=== PATIENT | female | born 1950 | race Caucasian/White ===

== ENCOUNTER → 2022-04-21 11:19 | Outpatient (POV) | payer MEDICARE, BC, SELFPAY ==
[2022-04-21 11:43] VITALS: BP 158/68; PULSE 76; RESP 18; TEMP 36.7; O2SAT 96; BMI 25.6
--- NOTE | 2022-04-21 13:30 | EXP.PAIN.OV ---
HPI Data of Consult Patient: new to practice Consult date: 04/21/22 Requesting Physician: Rosa Elena Jenkins APRN Primary Care Provider: Chris Valdivia APRN Consult Narrative Reason for consult: Low back pain, bilateral leg pains, history of sciatica History of present illness: Ms. Shook is a 72 year old female who presents today as a new patient. She is a referral from Chris Valdivia's office. Today she rates her pain a 4 out of 10. She states the pain is in her low back that radiates into her bilateral hips and down her legs. Patient describes her low back pain as a constant pain that is worse with increased activity. She states her legs are a dull achy pain that are worse with prolonged sitting. Patient states about 8 weeks ago she had a significant fall and has had issues with low back pain since. Patient does state that she has a history of SI related issues as well as multiple bilateral knee surgeries. Patient states following this injury they did do imaging around 03/26/2022 that did show a compression fracture. She was given a injection with prednisone as well as a 7-day dose steroid pack. Patient states she does take Aleve for the pain that does provide some improvement of her symptoms. She also uses an ice pack and has tried Salonpas however this did not do anything for her pain. Patient has seen a chiropractor for roughly 4 years however that was years ago. Patient has seen physical therapy in the past related to her knee surgeries however that has been years. Patient is scheduled for an MRI this coming Thursday. She is currently managed with gabapentin 800 mg twice a day by an outside provider. Patient denies any side effects from this medication. She states this medication does help manage some of her pain symptoms. Her Ricardo is [phone]. It is been reviewed and appropriate. CC: Rosa Elena Jenkins APRN [facility] Medical History (Updated 04/21/22 @ 13:40 by Rosa Elena Jenkins APRN) Cataracts, both eyes Depression Diabetes HLD (hyperlipidemia) HTN (hypertension) Migraine TIA (transient ischemic attack) Surgical History History of left knee replacement History of partial hysterectomy Family History Other Adopted Cancer Social History (Updated 04/21/22 @ 11:47 by Ghazala Sanches RN) Smoking Status: Former smoker alcohol intake: current substance use type: denies use current occupational status: retired Travel in the last 8 weeks: None adopted: Yes household members: none housing: house marital status: single Review of Systems Review of Systems Review of systems:: pertinent systems reviewed and negative unless documented below Review of systems (narrative): Review of Systems: General: No recent weight changes, no fever, no sleep disturbances Respiratory: No cough, no shortness of air, no recurring pulmonary infections Cardiovascular/peripheral vascular: No chest pain, no palpitations, no edema, no shortness of breath Gastrointestinal: No new onset incontinence, normal bowel movements reported Genitourinary: No new onset incontinence Musculoskeletal: Mid/low back pain, bilateral leg pain, bilateral hip pain Psychiatric: [Normal mood/affect] Neurological: [Denies weakness in extremities], [denies balance issues] Meds Home Medications and Allergies Home Medications Medication Instructions Recorded Confirmed Type albuterol sulfate 90 mcg/actuation 2 puff inhalation Q6H PRN BREATHING 03/11/22 04/21/22 History aerosol inhaler amitriptyline 75 mg tablet 75 mg PO HS MOOD 03/11/22 04/21/22 History aspirin 81 mg tablet,delayed 81 mg PO DAILY Blood thinner 03/11/22 04/21/22 History release atorvastatin 40 mg tablet 40 mg PO HS Cholesterol 03/11/22 04/21/22 History duloxetine 60 mg capsule,delayed 60 mg PO DAILY MOOD 03/11/22 04/21/22 History release furosemide 20 mg tablet 20
== END ==
PROVIDERS: PCP Nurse Practitioner Family; Visit Provider Nurse Practitioner Family
DX: M51.36 Other intervertebral disc degeneration, lumbar region (principal); M41.9 Scoliosis, unspecified; M79.604 Pain in right leg; M79.605 Pain in left leg; M25.551 Pain in right hip; M25.552 Pain in left hip; M48.56XG Collapsed vertebra, not elsewhere classified, lumbar region, subsequent encounter for fracture with delayed healing
CPT/HCPCS: 99202; G0463

== ENCOUNTER → 2022-04-29 13:04 | Outpatient (POV) | payer MEDICARE, BC, SELFPAY ==
[2022-04-29 13:39] VITALS: BP 126/58; PULSE 88; RESP 18; TEMP 36.7; O2SAT 98; BMI 25.6
--- NOTE | 2022-04-29 15:40 | EXP.PAIN.SOA ---
[facility] Pain Management SOAP Note Subjective:: Patient is a pleasant 72-year-old female who presents today for follow-up of MRI imaging of her lumbar spine. We are currently treating the patient for low back pain, bilateral hip pain, compression fracture of L1, degenerative disc disease of lumbar spine with lumbar radiculopathy symptoms. Today the patient rates her pain a 7 out of 10. She states the pain is all in her low back that radiates down her bilateral hips into her legs. Patient denies any new trauma or injury. Patient denies any change in location or type of pain she experiences. Patient did have a fall about 9 weeks ago that caused her compression fracture. Patient did state that she has a history of SI related issues as well as bilateral knee surgeries in the past. Patient does use [id number] Aleve to provide some improvement of her symptoms along with ice and Salonpas however she has minimal improvement. Patient has seen chiropractor and physical therapy in the past. She is prescribed gabapentin 800 mg twice a day from an outside provider. Patient denies any side effects from this medication. She states this medication does help her pain symptoms. She is scheduled to have a referral with Dr. Horne at neurosurgery in the future. Her Ricardo is [phone]. Its been reviewed and appropriate. Review of Systems: General: No recent weight changes, no fever, no sleep disturbances Respiratory: No cough, no shortness of air, no recurring pulmonary infections Cardiovascular/peripheral vascular: No chest pain, no palpitations, no edema, no shortness of breath Gastrointestinal: No new onset incontinence, normal bowel movements reported Genitourinary: No new onset incontinence Musculoskeletal: Low back pain, bilateral leg pain Psychiatric: [Normal mood/affect] Neurological: [Denies weakness in extremities], [denies balance issues] Objective:: Physical Exam: General: Alert and oriented x3, no acute distress, pleasant and cooperative Lungs: Respirations even and unlabored, symmetrical chest expansion Eyes: PERRL Musculoskeletal: Flexion and extension of lumbar [spine] somewhat guarded secondary to pain, [antalgic gait noted] Neurological: Speech clear, no gross sensory deficit [facility] 04/25/2022 Lumbar spine MRI without contrast Impression: Mild scoliosis, loss of lumbar lordosis with mild anterior listhesis of L3 on L4, secondary to moderate to severe bilateral facet arthropathy. Acute to subacute moderate compression fracture of L1 superior endplate, stable to mildly progressed since prior radiographs from about 1 month prior. Multilevel degenerative disc changes and facet arthropathy as described. At L3-L4 multifactorial mild spinal canal stenosis and mild bilateral neuroforaminal narrowing. At L4-L5 multifactorial bilateral neuroforaminal narrowing, moderate on the left and mild on the right. At L5-S1, multifactorial bilateral neuroforaminal narrowing, mild to moderate on the left and mild on the right. Assessment:: Degenerative disc disease of lumbar spine with lumbar radiculopathy symptoms, moderate compression fracture of L1, bilateral hip pain Plan:: Patient continues to have significant pain in her mid/low back. Patient did have limited range of motion of her lumbar spine during today's visit. I have discussed with the patient regarding a lumbar epidural steroid injection. Risk and benefits were discussed with the patient. She would like to proceed forward with this plan of care. Patient is not currently on any blood thinners. I will also add a compounding cream to the patient's medication regimen. I will send in a order for tizanidine 4 mg 3 times daily and provide a 14-day supply of this medication. We will schedule the patient for a lumbar epidural steroid injection L1-L2. Patient has been instructed to contact the clinic with any concerns before the next appointment. Dr. Marino has reviewed this note and agrees with t
== END | disposition home or self-care (01) ==
PROVIDERS: PCP Nurse Practitioner Family; Visit Provider Nurse Practitioner Family
DX: M51.16 Intervertebral disc disorders with radiculopathy, lumbar region (principal); S32.019A Unspecified fracture of first lumbar vertebra, initial encounter for closed fracture; Z79.899 Other long term (current) drug therapy
CPT/HCPCS: 99212; G0463

== ENCOUNTER 2022-05-13 08:38 | Day surgery (SDC) | payer MEDICARE, BC, SELFPAY ==
[2022-05-13 08:54] VITALS: BP 129/47; PULSE 102; RESP 18; TEMP 36.5; O2SAT 97; BMI 25.6
[2022-05-13 09:30] VITALS: BP 127/63; PULSE 89; RESP 18; O2SAT 96
[2022-05-13 09:32] VITALS: BP 127/63; PULSE 86; RESP 18; O2SAT 96
[2022-05-13 09:40] VITALS: BP 119/54; PULSE 85; RESP 18; O2SAT 97
--- NOTE | 2022-05-13 09:47 | EXP.PAIN.PRO ---
Procedure Date: 05/13/22 Time: 09:40 Anesthesiologist:: [place] CRNA Complications:: None Pre-procedure Diagnosis:: Degenerative disc disease lumbar spine multilevels. L1 compression fracture superior endplate. Post-procedure Diagnosis:: Same. Indications for Procedure:: Patient is a pleasant 72-year-old female who comes our clinic today for L1 to epidural steroid injection. Patient is dealing with multiple issues in the lumbar spine including degenerative disc disease multilevel. Disc bulge multilevel. Lumbar radiculopathy. L1 superior endplate compression fracture. Patient will be seeing Dr. Horne next week for consultation regarding compression fracture at L1. Procedure Details:: Procedure: Lumbar epidural steroid injection under fluoroscopy Informed consent was obtained and the risks and benefits of the procedure were explained to the patient. The patient was taken to the procedure room and noninvasive monitors placed, including noninvasive blood pressure cuff and pulse oximeter. The back was viewed using C-arm Fluoroscopy and prepped using Chloraprep as a cleansing solution and the L4-L5 interspace was palpated. Skin and subcutaneous tissues were anesthetized using lidocaine 1.5% and a 25-gauge needle. After this, an 18-gauge Touhy epidural needle was placed into the L4-L5 interspace and advanced using fluoroscopic guidance and loss of resistance to air until the epidural space was encountered. After confirmation of needle placement in the epidural space, with dye, a solution containing normal saline, 3 mL and Depo-Medrol 80 mg were incrementally injected into the lumbar epidural space. The patient tolerated the procedure well with no complications. The patient was observed in the Pain Clinic and then discharged home neurologically intact. Plan and Disposition:: Patient was discharged without incident.
== END 2022-05-13 09:40 | disposition home or self-care (01) ==
PROVIDERS: PCP Nurse Practitioner Family; Visit Provider Nurse Anesthetist, Certified Registered
DX: M51.16 Intervertebral disc disorders with radiculopathy, lumbar region (principal)
CPT/HCPCS: 62323; J1040

== ENCOUNTER → 2022-06-19 09:19 | Outpatient (CLI) | payer MEDICARE, BC, SELFPAY ==
--- NOTE | 2022-06-19 09:25 | XR_ITS ---
FINAL REPORT TECHNIQUE: Bone densitometry calculations of the lumbar spine and left hip were obtained. CLINICAL HISTORY: osteoporosis FINDINGS: DEXA BONE DENSITY AXIAL SKELETON Using L1-4, the bone mineral density of the spine is 1.112 g/cm2, corresponding to T-score of 0.6. No these values are falsely elevated secondary to hypertrophic changes. Using the left hip, the bone mineral density of the femoral neck is 0.580 g/cm2, corresponding to a T-score of -2.4. NOTE: T-score: Standard deviation compared with peak bone mass of young adult mean. *Following the recommendations of the International Society of Bone densitometry, classification of hip BMD is based on the lower of two T-scores; total hip or femoral neck. IMPRESSION: Diminished bone mineral density of the lumbar spine and left hip consistent with osteopenia. FRAX 10 year fracture risk is 4.7% for a hip fracture and 21% for a major osteoporotic fracture. Reviewed, Interpreted and Dictated by Colin Haywood III, MD Transcribed by Teresa Henriquez Authenticated and [facility]
== END ==
PROVIDERS: PCP Nurse Practitioner Family; Visit Provider Neurological Surgery
DX: S32.010S Wedge compression fracture of first lumbar vertebra, sequela (principal); M80.08XA Age-related osteoporosis with current pathological fracture, vertebra(e), initial encounter for fracture
CPT/HCPCS: 77080

== ENCOUNTER → 2023-05-25 14:49 | Outpatient (CLI) | payer MEDICARE, BC, SELFPAY ==
--- NOTE | 2023-05-25 | CA_ITS ---
FINAL REPORT TECHNIQUE: Color Doppler, duplex Doppler and compression sonography of the left lower extremity deep venous systems was performed. CLINICAL HISTORY: Left lower extremity pain and edema x 1 year, worse in the last 2 weeks asa x 1 COMPARISON: None FINDINGS: There is no evidence of deep venous thrombosis from the level of the groin to the calf. The veins are patent and compressible. IMPRESSION: No evidence of deep venous thrombosis left lower extremity. Reviewed, Interpreted and Dictated by Colin Haywood III, MD Transcribed by Brittney Greenfield Authenticated and . [facility]
== END ==
PROVIDERS: PCP Nurse Practitioner Family; Visit Provider Nurse Practitioner Family
DX: M79.605 Pain in left leg (principal)
CPT/HCPCS: 93971

== ENCOUNTER 2024-11-17 16:02 | Emergency (ER) | payer MEDICARE, SELFPAY ==
--- NOTE | 2024-11-17 16:05 | ECG_ITS ---
APPROVED REPORT Exam: Resting ECG HR:91 bpm ECG Measurements Heart Rate 91 AXES OR 192 P 72 QRSd 100 QRS 65 QT 363 T 55 QTc 412 Conclusion SINUS RHYTHM NORMAL ECG No STEMI Electronically signed by : NATALIE FUNEZ, 11/18/2024 23:36:50
[2024-11-17 16:06] VITALS: BP 159/73; PULSE 92; O2SAT 97
[2024-11-17 16:23] VITALS: BP 159/73; PULSE 90; RESP 19; TEMP 37.5; O2SAT 99
--- NOTE | 2024-11-17 16:32 | CT_ITS ---
PROCEDURE INFORMATION: Exam: CTA Neck With Contrast Exam date and time: 11/17/2024 4:45 PM Age: 74 years old Clinical indication: Stroke-like symptoms; Other: Possible stroke, R arm numb/tingling TECHNIQUE: Imaging protocol: Computed tomographic angiography of the neck with contrast. Exam focused on the cervical segments of the vasculature. 3D rendering (Not supervised by radiologist): MIP and/or 3D reconstructed images were created by the technologist. Radiation optimization: All CT scans at this facility use at least one of these dose optimization techniques: automated exposure control; mA and/or kV adjustment per patient size (includes targeted exams where dose is matched to clinical indication); or iterative reconstruction. Contrast material: ISO 370; Contrast volume: 80 ml; Contrast route: INTRAVENOUS (IV); COMPARISON: CT HEAD/BRAIN WO CON 11/17/2024 4:43 PM FINDINGS: Right common carotid artery: No stenosis. No dissection or occlusion. Right internal carotid artery: No stenosis of the extracranial segment. No dissection or occlusion. Right external carotid artery: No occlusion or stenosis of the origin. Left common carotid artery: No stenosis. No dissection or occlusion. Left internal carotid artery: No stenosis of the extracranial segment. No dissection or occlusion. Left external carotid artery: No occlusion or stenosis of the origin. Right vertebral artery: No stenosis. No dissection or occlusion. origin. Left vertebral artery: No stenosis. No dissection or occlusion. Soft tissues: No masses or edema. Bones/joints: No acute fracture, subluxations, or bone lesions. IMPRESSION: No arterial stenosis or occlusion in the neck. REFERENCES: NASCET CRITERIA. The degree of stenosis in the cervical segment of the internal carotid artery is based on NASCET criteria. Normal is no stenosis. Mild is less than 50% stenosis. Moderate is 50-69% stenosis. Severe is 70% to 99% stenosis. Total occlusion is no detectable patent lumen.
--- NOTE | 2024-11-17 16:32 | XR_ITS ---
PROCEDURE INFORMATION: Exam: XR Chest Exam date and time: 11/17/2024 4:48 PM Age: 74 years old Clinical indication: Other: Stroke SX, R arm numb/tingling TECHNIQUE: Imaging protocol: Radiologic exam of the chest. Views: 1 view. COMPARISON: CT ANGIO NECK 11/17/2024 4:45 PM FINDINGS: Lungs: No consolidation or lung nodules. Pleural spaces: No pleural effusion. No pneumothorax. Heart/Mediastinum: No abnormalities. No cardiomegaly. No pulmonary vascular congestion. Bones/joints: No fractures or bone lesions. IMPRESSION: No acute findings in the chest.
--- NOTE | 2024-11-17 16:32 | CT_ITS ---
PROCEDURE INFORMATION: Exam: CTA Head With Contrast, Arteriography Exam date and time: 11/17/2024 4:45 PM Age: 74 years old Clinical indication: Stroke-like symptoms; Other: Possible stroke, R arm numb/tingling TECHNIQUE: Imaging protocol: Computed tomographic angiography of the head with contrast. Exam focused on the arteries. 3D rendering (Not supervised by radiologist): MIP and/or 3D reconstructed images were created by the technologist. Radiation optimization: All CT scans at this facility use at least one of these dose optimization techniques: automated exposure control; mA and/or kV adjustment per patient size (includes targeted exams where dose is matched to clinical indication); or iterative reconstruction. Contrast material: ISO 370; Contrast volume: 80 ml; Contrast route: INTRAVENOUS (IV); COMPARISON: CT HEAD/BRAIN WO CON 11/17/2024 4:43 PM FINDINGS: ANTERIOR CIRCULATION: Right internal carotid artery: Intracranial segment is patent with no significant stenosis. No aneurysm. Right middle cerebral artery: No occlusion or significant stenosis. No aneurysm. Right anterior cerebral artery: No occlusion or significant stenosis. No aneurysm. Left internal carotid artery: Intracranial segment is patent with no significant stenosis. No aneurysm. Left middle cerebral artery: No occlusion or significant stenosis. No aneurysm. Left anterior cerebral artery: No occlusion or significant stenosis. No aneurysm. POSTERIOR CIRCULATION: Right vertebral artery: No occlusion or significant stenosis. No aneurysm. Left vertebral artery: No occlusion or significant stenosis. No aneurysm. Basilar artery: No occlusion or significant stenosis. No aneurysm. Right posterior cerebral artery: No occlusion or significant stenosis. No aneurysm. origin Left posterior cerebral artery: No occlusion or significant stenosis. No aneurysm. Brain: No definite mass, mass effect, or midline shift. Cerebral ventricles: No ventriculomegaly. Bones/joints: No acute fracture or focal bone lesions. Soft tissues: No masses or swelling. IMPRESSION: No large vessel occlusion. No acute intracranial abnormalities.
--- NOTE | 2024-11-17 16:32 | CT_ITS ---
PROCEDURE INFORMATION: Exam: CT Head Without Contrast Exam date and time: 11/17/2024 4:43 PM Age: 74 years old Clinical indication: Stroke-like symptoms; Other: Possible stroke, R arm numb/tingling TECHNIQUE: Imaging protocol: Computed tomography of the head without contrast. Radiation optimization: All CT scans at this facility use at least one of these dose optimization techniques: automated exposure control; mA and/or kV adjustment per patient size (includes targeted exams where dose is matched to clinical indication); or iterative reconstruction. Other technique: STROKE PROTOCOL was implemented. COMPARISON: No relevant prior studies available. FINDINGS: Brain: No hemorrhage. No intra-axial or extra-axial lesions or masses. No midline shift. Cerebral ventricles: No ventriculomegaly. Age appropriate. Paranasal sinuses: Visualized sinuses are well aerated. No fluid levels. Mastoid air cells: Visualized mastoid air cells are well aerated. Bones: No acute fractures or bone lesions. Soft tissues: No abnormalities. IMPRESSION: No acute intracranial abnormalities. ASSESSMENT: ASPECTS ([place] Stroke Program Early CT Score) is 10.
[2024-11-17] MEDS: 0.9 % SODIUM CHLORIDE 50 ML VIAL IV (16:43)
[2024-11-17] MEDS: SODIUM CHLORIDE 0.9% 10ML SYR (RAD ONLY) 10 ML IV (16:43)
[2024-11-17] MEDS: IOPAMIDOL-370 (76%);100ML BOTTLE 80 ML IV (16:43)
[2024-11-17 16:51] LABS: Basophils % 0.5 % (0.1-2.0); Eosinophils # 0.6 Kmm3 (0.0-0.4); Eosinophils % 7.1 % (0.1-12.0); Hematocrit 38.1 % (37.0-47.0); Hemoglobin 12.6 g/dL (12.2-16.2); Immature Granulocytes # 0.02 10^3uL; Immature Granulocytes % 0.2 %; Lymphocytes # 1.6 K/mm3 (0.7-4.5); Lymphocytes % 19.3 % (10-50); Mean Corpuscular HGB Conc 33.1 g/dL (31.8-35.4); Mean Corpuscular Hemoglobin 33.2 pg (27.0-31.2); Mean Corpuscular Volume 100.3 fl (81-99); Mean Platelet Volume 9.2 fl (7.4-10.4); Monocytes # 0.6 K/mm3 (0.1-1.0); Monocytes % 6.9 % (1.7-9.3); Neutrophils # 5.5 K/mm3 (1.8-7.8); Nucleated Red Blood Cells # 0 10^3/uL; Nucleated Red Blood Cells % 0 %; Platelet Count 204 K/mm3 (142-424); Red Cell Distribution Width 12.4 % (11.5-17.5); Red Cell Distribution Width-SD 45.9 fL; White Blood Count 8.3 K/mm3 (4.8-10.8)
--- NOTE | 2024-11-17 16:54 | ED_ITS ---
Discharge Plan Disposition Patient Disposition: Home, Self-Care Condition: Good Prescriptions Prescriptions: No Action albuterol sulfate 90 mcg/actuation HFA aerosol inhaler 2 puff inhalation Q6H PRN (Reason: BREATHING) amitriptyline 75 mg tablet 75 mg PO HS Patient Comments: TAKE 1 TABLET BY MOUTH EVERY DAY AT BEDTIME aspirin 81 mg tablet,delayed release (DR/EC) 81 mg PO DAILY atorvastatin 40 mg tablet 40 mg PO HS Patient Comments: TAKE 1 TABLET BY MOUTH EVERY DAY IN THE EVENING duloxetine 60 mg capsule,delayed release(DR/EC) 60 mg PO DAILY Patient Comments: TAKE 1 CAPSULE BY MOUTH EVERY DAY furosemide 20 mg tablet 20 mg PO DAILY gabapentin 800 mg tablet 800 mg PO BID Patient Comments: TAKE 1 TABLET BY MOUTH TWICE DAILY metformin 500 mg tablet 1,000 mg PO BID Patient Comments: TAKE 2 TABLETS BY MOUTH TWICE DAILY pioglitazone 15 mg tablet 15 mg PO DAILY Patient Comments: TAKE 1 TABLET BY MOUTH EVERY DAY zolpidem 5 mg tablet 5 mg PO HS Patient Comments: TAKE 1/2 TO 1 TABLET BY MOUTH AT BEDTIME NEEDED losartan 25 mg tablet 25 mg PO .COMPLEX Rx Instructions: 25 mg orally every other day; tizanidine [Zanaflex] 4 mg tablet 4 mg PO TID Qty: 90 0RF Referrals Follow up/Referrals: Salomon Jenkins DO [Staff Physician] - See instructions Provider,Referral, [Primary Care Provider] - See instructions Activity Restrictions/Add. Instructions Additional Instructions/Restrictions: You were evaluated in the emergency department today. Your stroke CT scans are negative for any acute stroke. At this time, we feel that you likely have a nerve palsy from compression of a nerve in your arm. Please follow very close with your primary care provider for reassessment. I suspect that your symptoms should improve/resolve over the next several weeks, but they can help expedite follow-up with neurology and/or orthopedics as needed. Take Tylenol and ibuprofen at home as needed for pain. Return to the emergency department for new or worsening symptoms. Clinical Impressions Clinical Impression: Peripheral neuropathy Instructions Patient Instructions: DI for Peripheral Neuropathy Print Language Print Language: Persian Discharge ED Provider: Rosa Elena Hunter General Adult HPI General Chief complaint: Recheck/Abnormal Lab/Rx Stated complaint: STROKE LIKE SYMPTOMS Time Seen by Provider: 11/17/24 16:06 Mode of Arrival: EMS Source of Information: EMS Description of Symptoms (Recalled from ER Triage Doc. by RN): ems states they were called to a patient that had numbness in right arm on thursday and her provider sent her today to be scanned. today patient states she is only having nukbness from her wrist down. History of Present Illness HPI narrative: This patient is a 74-year-old female with a history of degenerative disc disease, hypertension morbid anemia, type 2 diabetes presenting to the emergency department for evaluation with concern for numbness and tingling in her right arm. Patient states that on Thursday, she was doing a puzzle on the couch when she fell asleep. She notes that she woke up to numbness and tingling in her right arm from about mid upper arm down to her hand. She notes is progressively improved since then and now only her index finger and thumb are tingly, but her primary care provider was concerned for TIA or stroke and wanted her to come to the ED to be evaluated. She denies any visual changes, other numbness or tingling, other unilateral weakness, new gait instability. On review of systems, she notes that she has had daily headaches for the last little bit and did have a fall within the last couple of weeks. No recent fall over the last few days. No chest pain, shortness of breath, or other concerns. Related Data Home Medications ?Medication ?Instructions ?Recorded ?Confirmed albuterol sulfate 90 mcg/actuation 2 puff inhalation Q6H PRN BREATHING 03/11/22 05/13/22 aerosol inhaler amitriptyline 75 mg tablet 75 mg PO HS MOOD 03/11/22 05/13/22 aspirin 81 mg tablet,delayed 81 mg PO DAILY Blood thinner 03/11/22 05/13/22 release atorvastatin 40 mg tablet 40 mg PO HS Cholesterol 03/11/22 05/13/22 duloxetine 60 mg capsule,delayed 60 mg PO DAILY MOOD 03/11/22 05/13/22 release furosemide 20 mg tablet 20 mg PO DAILY Fluid 03/11/22 05/13/22 gabapentin 800 mg tablet 800 mg PO BID Pain 03/11/22 05/13/22 losartan 25 mg tablet 25 mg PO .COMPLEX BLOOD PRESSURE 03/11/22 05/13/22 metformin 500 mg tablet 1,000 mg PO BID Diabetes 03/11/22 05/13/22 pioglitazone 15 mg tablet 15 mg PO DAILY Diabetes 03/11/22 05/13/22 zolpidem 5 mg tablet 5 mg PO HS MOOD 03/11/22 05/13/22 Previous Rx's ?Medication ?Instructions ?Recorded tizanidine 4 mg tablet (Zanaflex) 4 mg PO TID muscle spasms #90 tabs 06/16/22 Allergies Allergy/AdvReac Type Severity Reaction Status Date / Time Sulfa (Sulfonamide Allergy Severe Wheezing Verified 05/13/22 08:56 Antibiotics) neomycin Allergy Mild Verified 05/13/22 08:56 Penicillins AdvReac Mild Verified 05/13/22 08:56 [facility] Disclaimer: The information contained in this section may have been updated after the patient was seen, as this information can be updated by other users. Medical History Depression HTN (hypertension) HLD (hyperlipidemia) Diabetes Migraine Cataracts, both eyes TIA (transient ischemic attack) Surgical History History of partial hysterectomy History of left knee replacement Family History Other Adopted Cancer Social History Smoking Status: Never smoker alcohol intake: current alcohol intake frequency: holidays/special occasions only substance use type: denies use current occupational status: retired Travel in the last 8 weeks?: None adopted: Yes household members: none housing: house marital status: single Have you lived/traveled outside [place] in past 30 days?: No Contact w/someone who lives/traveled outside [place] past 30 days?: No Exposure to someone with infectious disease in past 14 days?: No Do you have a fever (greater than 100.4 F or 38 C)?: No Have you tested positive for COVID-19?: No Exposed to someone with COVID-19 in past 14 days?: No Do you have a sore throat?: No Do you have a cough?: No Do you have any weakness?: No Do you have any diarrhea?: No Are you experiencing any unusual bleeding?: No Do you have any muscle aches/pain?: No Do you have any abdominal pain?: No Are you experiencing loss of taste or smell?: No Other Medical History Have you received the Flu Vaccine for this season: No Have you received the Pneumonia Vaccine: No ROS Obtained: Yes All systems reviewed & no additional complaints except as documented Physical Exam General General appearance: alert and in no apparent distress Head Head exam: atraumatic and normocephalic Eye Eye exam: Present normal appearance, PERRL and EOMI ENT ENT exam: Present normal exam, normal oropharynx, mucous membranes moist and normal external ear exam Neck Neck exam: Present normal inspection, full ROM and trachea midline; Absent tenderness Chest Chest inspection: Present normal inspection and symmetric chest wall rise; Absent tenderness Respiratory Respiratory exam: Present normal lung sounds bilaterally; Absent respiratory distress, wheezes, stridor or accessory muscle use Cardiovascular Cardiovascular exam: Present regular rate and normal rhythm Abdominal Exam Abdominal exam: Present soft; Absent distention, tenderness or guarding Extremities Exam Extremities exam: Present normal inspection, full ROM and normal capillary refill; Absent tenderness or edema Back Exam Back exam: Present normal inspection and full ROM; Absent tenderness Neurological Exam Neurological exam: Present alert, oriented X3, CN II-XII intact and normal gait; Absent motor sensory deficit Psychiatric Psychiatric exam: Present normal affect and normal mood Skin Skin exam: Present warm and dry Medical Decision Making Medical Records Medical records reviewed: Yes I reviewed the patient's medical records. Screening: Per USPSTF and CDC recommendations, given the prevalence of disease in our region, it is our hospital?s policy to screen for HIV and viral Hepatitis for all patients aged 18 and over and those with ongoing risk factors. Ricardo Inquiry Pt receiving controlled substance: No Vital Signs: 11/17/24 16:06 11/17/24 16:23 11/17/24 17:20 Temperature 99.5 F Temperature Source Oral Pulse Rate 92 H 90 Pulse Rate [Right Radial] 90 Respiratory Rate 19 Blood Pressure 159/73 H 129/90 Blood Pressure [Right Arm] 159/73 H Blood Pressure Mean [Right Arm] 101 Blood Pressure Source [Right Arm] Automatic Cuff Blood Pressure Position [Right Arm] Supine 02 Sat by Pulse Oximetry 97 99 97 Oxygen Delivery Method Room Air Room Air Room Air 11/17/24 17:50 Temperature 99.5 F Temperature Source Pulse Rate 88 Pulse Rate [Right Radial] Respiratory Rate 18 Blood Pressure 129/70 Blood Pressure [Right Arm] Blood Pressure Mean [Right Arm] Blood Pressure Source [Right Arm] Blood Pressure Position [Right Arm] 02 Sat by Pulse Oximetry Oxygen Delivery Method Lab Data Lab results reviewed: Yes I reviewed the patient's lab results. Lab Results 11/17/24 16:39: WBC 8.3, RBC 3.80 L, Hgb 12.6, Hct 38.1, MCV 100.3 H, MCH 33.2 H , MCHC 33.1, RDW 12.4, Plt Count 204, MPV 9.2, Neut % (Auto) 66.0, Lymph % (Auto) 19.3, Mcmullen % (Auto) 6.9, Eos % (Auto) 7.1, Baso % (Auto) 0.5, Neut # (Auto) 5.5, Lymph # (Auto) 1.6, Mcmullen # (Auto) 0.6, Eos # (Auto) 0.6 H, Baso # (Auto) 0.0, PT 10.7, INR 0.95, APTT 24.8, Sodium 136, Potassium 4.6, Chloride 106, Carbon Dioxide 26, Anion Gap 8.6, BUN 25 H, Creatinine 1.00, Estimated Creat Clear 44, Estimated GFR 55 L, Est GFR ( Amer) 66, Glucose 83, Calcium 9.2, Total Bilirubin 0.5, AST 50 H, ALT 36, Alkaline Phosphatase 53, Troponin I < 0.01, Total Protein 7.1, Albumin 4.6, Globulin 2.5, Albumin/Globulin Ratio 1.8, Triglycerides 213 H, Cholesterol 150, LDL Cholesterol Direct 62.65 L, VLDL Cholesterol 43 H, HDL Cholesterol 48, Cholesterol/HDL Ratio 3.1, Plasma/Serum Alcohol < 10, HCV Ab LI w/Rflx PCR Qn Negative, HIV Ag/Ab Combo Qual Negative 11/17/24 16:39 11/17/24 16:39 Orders (Tests/Meds): ED MEDICATIONS Discontinued Medications Generic Name Dose Route Start Last Admin Trade Name Freq PRN Reason Stop Dose Admin Iopamidol 80 ml 11/17/24 16:42 11/17/24 16:43 Iopamidol-370 (76%);100ml Bottle IV 11/17/24 16:43 80 ml ONCE ONE Administration Sodium Chloride 10 ml 11/17/24 16:32 Sodium Chloride 0.9% 10ml Flush Syringe IV 12/17/24 16:31 NEEDED PRN Maintain IV Site Sodium Chloride 10 ml 11/17/24 16:42 11/17/24 16:43 Sodium Chloride 0.9% 10ml Syr (Rad Only) IV 11/17/24 16:43 10 ml ONCE ONE Administration Sodium Chloride 50 ml 11/17/24 16:42 11/17/24 16:43 0.9 % Sodium Chloride 50 Ml Vial IV 11/17/24 16:43 50 ml ONCE ONE Administration ORDERS Category Date Time Status CT angio head Stat Cat Scan 11/17/24 16:[address] angio neck Stat Cat Scan 11/17/24 16:[address] head/brain wo con Stat Cat Scan 11/17/24 16:32 Completed XR chest portable Stat Exams 11/17/24 16:32 Completed Activated Partial Thrombo Time Stat Lab 11/17/24 16:39 Completed Complete Blood Count Auto Diff Stat Lab 11/17/24 16:39 Completed Comprehensive Metabolic Panel Stat Lab 11/17/24 16:39 Completed Ethyl Alcohol Stat Lab 11/17/24 16:39 Completed HIV Combo Stat Lab 11/17/24 16:39 Completed Hepatitis C Ab Qual. W/ RFX Stat Lab 11/17/24 16:39 Completed Lipid Panel Stat Lab 11/17/24 16:39 Completed Prothrombin Time INR Stat Lab 11/17/24 16:39 Completed Troponin I Stat Lab 11/17/24 16:39 Completed ECG Data Tracing #1: I reviewed this ECG and interpreted as documented below: Sinus rhythm with a ventricular to [address] changes concerning for ischemia ECG initial impression date: 11/17/24 ECG initial impression time: 16:07 Medical Decision Narrative: In summary, this patient is a 74-year-old female presenting to the Emergency Department for evaluation of right arm tingling since Thursday. Differential diagnoses considered include but are not limited to Thursday night palsy, peripheral neuropathy, carpal tunnel, cubital tunnel, cervical radiculopathy, less likely CVA or intracranial hemorrhage. Ruling out the most morbid conditions drove assessment. It should be noted patient's history includes hypertension, hyperlipidemia, diabetes which may or may not be at goal therapy. This complicates all aspects of care by increasing patient's risk for morbidity. I reviewed patient's past medical records and noted prior pain management evaluations for intervertebral disc disease. On exam, the patient is sitting upright in no acute distress. She is neurovascularly intact with an NIH score of 0. Symptoms started 2 days ago so she is outside of any window for TNK/thrombectomy. I suspect that this is likely a peripheral cause of radiculopathy, such as Thursday night palsy where she is fell asleep on the couch versus other musculoskeletal cause. To be on suicide based on risk factors as well as her daily recent headaches, workup included CT head, CT angiogram head and neck, lab evaluation to evaluate for metabolic/cardiac derangements, and chest x-ray. EKG was obtained and is reassuring. I independently interpreted CT scans and x-ray prior to the radiologist read and noted no large focal consolidation concerning for pneumonia, no intracranial hemorrhage, no large space-occupying lesion. Please see their read for final interpretation. Labs were obtained that demonstrated reassuring CBC with no significant leukocytosis or anemia, reassuring chemistry with mildly elevated BUN but no other acutely actionable abnormalities. Troponin negative. On reassessment, patient is resting comfortably and continues to be otherwise neurologically intact. I feel she likely has peripheral neuropathy. I am not concerned for stroke based on history or clinical exam and reassuring workup at this time. I feel she is appropriate for discharge home with close follow-up with PCP and possibly neuro/Ortho if she continues to have upper extremity issues. Strict return precautions given Critical Care Critical Care Time Critical Care Time: Yes Attestation: On 11/17/24, the high probability of a clinically significant, sudden or life threatening deterioration of the following system(s) required my full and direct attention, intervention and personal management. The time I documented below is in addition to time spent performing reported procedures but includes the following listed in this critical care notation. Total Time Total Critical Care Time: 35
--- NOTE | 2024-11-17 17:01 | PC.NURSE ---
on phone with dung
[2024-11-17 17:05] LABS: Alanine Aminotransferase 36 U/L (12-78); Albumin Level 4.6 g/dl (3.5-5.0); Albumin/Globulin Ratio 1.8 (1.1-1.8); Alkaline Phosphatase 53 U/L (38-126); Anion Gap 8.6 mEq/L (5-15); Aspartate Amino Transferase 50 U/L (14-36); Bilirubin,Total 0.5 mg/dl (0.2-1.3); Blood Urea Nitrogen 25 mg/dl (7-17); Calcium 9.2 mg/dl (8.4-10.2); Carbon Dioxide 26 mmol/L (22.0-30.0); Chloride 106 mmol/L (98-107); Chol/HDL Ratio 3.1 (1-3.5); Cholesterol 150 mg/dl (140-200); Creatinine Clearance Estimated 44 mL/min (50-200); Estimated Glomerular Filt Rate 55 ml/min (>60); GFR (African American) 66 ML/MIN (>60); Globulin 2.5 g/dL (1.3-3.2); Glucose 83 mg/dl (74-100); HDL Cholesterol 48 mg/dl (40-60); Potassium 4.6 mmoL/L (3.5-5.1); Sodium 136 mmol/L (136-145); Total Protein,Serum 7.1 g/dl (6.3-8.2); Triglycerides 213 mg/dl (30-150); VLDL Cholesterol 43 mg/dL (0-40)
[2024-11-17 17:14] LABS: Ethyl Alcohol < 10 mg/dl (0-10)
[2024-11-17 17:15] LABS: Direct LDL Cholesterol 62.65 mg/dL (100-129); Troponin I < 0.01 ng/ml (0.00-0.034)
[2024-11-17 17:16] LABS: Activated Partial Thrombo Time 24.8 seconds (22.8-30.6); INR 0.95 (0.9-1.1); Prothrombin Time 10.7 seconds (10.1-12.5)
[2024-11-17 17:20] VITALS: BP 129/90; PULSE 90; O2SAT 97
[2024-11-17 17:42] LABS: HIV Combo NEGATIVE (Negative)
[2024-11-17 17:50] VITALS: BP 129/70; PULSE 88; RESP 18; TEMP 37.5; O2SAT 97
[2024-11-17 17:50] LABS: Hepatitis C Ab Qual. W/ RFX NEGATIVE (Negative)
== END 2024-11-17 17:59 | disposition home or self-care (01) ==
PROVIDERS: Emergency Provider Emergency Medicine
DX: G90.09 Other idiopathic peripheral autonomic neuropathy (principal); E11.9 Type 2 diabetes mellitus without complications; E78.5 Hyperlipidemia, unspecified; I10 Essential (primary) hypertension; Z11.59 Encounter for screening for other viral diseases; Z11.4 Encounter for screening for human immunodeficiency virus [HIV]
CPT/HCPCS: 70450; 70496; 70498; 71045; 80053; 80061; 80320; 84484; 85025; 85610; 85730; 86803; 87389; 93005; 99285; Q9967

== ENCOUNTER 2025-02-13 12:45 | Outpatient (CLI) | payer MEDICARE, SELFPAY ==
--- OUTSIDE RECORDS SUMMARY | 2025-01-26 13:45 | XMS_ITS | Encounter Summary ---
Author Organization [employer] ([place], [place], [place], [place]) Address [address] [place] [address] Care Team Providers Care Broadcast Field Supervisor Name Role Phone berlin Chris Primary Care Provider [phone] Sawyer Hernández MD Unavailable [phone] David Loredo MD Unavailable [phone] Neville Maki MD Unavailable Reason for Referral * Consultation (Routine) - Closed Specialty Diagnoses / Procedures Referred By Hetal lantigua Referred To Contact Occupational Therapy Diagnoses Wrist drop Edwin Hernandez MD [facility] [address] [place] [address] Phone: tel: fax: [facility] [address] [place] [address] Phone: tel: Referral ID Status Reason Start Date Expiration Date V isits Requested Visits Authorized [id number] Closed Specialty Services Required 01/26/2025 01/26/2026 1 1 * Consultation (Routine) - Closed Specialty Diagnoses / Procedures Referred By Contaung t Referred To Contact Physical Therapy Diagnoses BPPV (benign paroxysmal positional vertigo) Edwin Hernandez MD [facility] [address] [place] [address] Phone: tel: fax: [facility] [address] [place] [address] Phone: tel: Referral ID Status Reason Start Date Expiration Date V isits Requested Visits Authorized [id number] Closed Specialty Services Required 01/26/2025 01/26/2026 1 1 * MRI (Routine) - Authorized Specialty Diagnoses / Procedures Referred By Hetal lantigua Referred To Contact Radiology Diagnoses Cerebral infarction (HCC) Procedures MR Brain Without IV Contrast Edwin Hernandez MD [address] [place] [address] [address] [place] [address] Phone: tel: fax: [facility] [address] [facility] [address] [place] [address] Phone: tel: fax: Referral ID Status Reason Start Date Expiration Date V isits Requested Visits Authorized [id number] Authorized 01/26/2025 01/26/2026 1 1 Reason for Visit * Reason Comments Establish Care * Consultation (Routine) - Closed Specialty Diagnoses / Procedures Referred By Hetal lantigua Referred To Contact Neurology Diagnoses Other symptoms and signs involving the musculoskeletal system Right arm weakness Chris Valdivia [address] [place] [address] Phone: tel: fax: Edwin Hernandez MD [address] [place] [address] [address] [place] [address] Phone: tel: fax: Referral ID Status Reason Start Date Expiration Date V isits Requested Visits Authorized [id number] Closed Specialty Services Required 12/23/2024 12/23/2025 1 1 Encounter Details Date Type Department Care Team (Late st Contact Info) Description 01/26/2025 1:45 PM EDT Office Visit [facility] Neurology - [facility] [address] [place] [address] [address] [place] [id number] Edwin Hernandez MD [address] [place] [address] Gait instability (Primary Dx); Cerebral infarction (HCC); BPPV (benign paroxysmal positional vertigo); Wrist drop Social History Tobacco Use Types Packs/Day Years Used Date Smoking Tobacco: Former Cigarettes 1 18 Passive Smoke Exposure: Never Smokeless Tobacco: Never Tobacco Cessation:Counseling Given: Not Answered Alcohol Use Standard Drinks/Week Comments Not Currently 0 (1 standard drink = 0.6 oz pur e alcohol) Family and Community Support Answer Joaquín e Recorded Help with Day to Day Activities Not on file 10/12/2023 Feeling Lonely or Isolated Not on file 10/11 Educational Attainment Answer Date Matias rded Speak language other than Stateless at home Not on file 10/12/2023 Want help with school or training Not on file 10/12/2023 Substance Use Answer Date Recorded Used prescription meds for non-medical reasons N ot on file 10/12/2023 Used illegal drugs past 12 months Not on file 10/12/2023 Comments Unknown Sex and Gender Information Value Date Recorded Sex Assigned at Not on file Legal Sex Female 2:24 PM CDT Gender Identity Not on file Sexual Orientation Not on file documented as of this encounter Last Filed Vital Signs Vital Sign Reading Time Taken Comments Blood Pressure 163/83 01/26/2025 1:32 PM EDT Pulse 68 01/26/2025 1:32 PM EDT Temperature - - Respiratory Rate - - Oxygen Saturation 93% 01/26/2025 1:32 PM EDT Inhaled Oxygen Concentration - - Weight 56.2 kg (124 lb) 01/26/2025 1:32 PM EDT Height 160 cm (5' 3 ) 01/26/2025 1:32 PM EDT Body Mass Index 21.97 01/26/2025 1:32 PM EDT documented in this encounter Progress Notes * Edwin Hernandez MD - 01/26/2025 1:45 PM EDT Neuro - Consult Date of Service: 01/26/2025 Subjective: Chief Complaint Patient presents with Establish Care Heidicolt Shook is a 74 y.o. female who presents in the clinic as a referral from Chris Valdivia APRN due to concern for right arm weakness. Reports that in 10/2024 was sitting in the living room, startled awake and noticed she was unable tofeel her RUE. Presented to clinic 3 days later-referred to [facility] for CT brain-this was unrevealing. In 11/2024 fell of a ladder and landed on his right elbow-hand went numb with associated wrist drop. NCS/EMG performed-per pt confirmed nerve injury. Continues to have numbness on the dorsum of her right hand. Pt notes that she has falls due to dizziness-marquis vertigo-veers sideways when ambulating. Hx of HTN and HLD. Endorses DM-last a1c was 6.2-on metformin. Endorses Hx of carotid artery stenosis. +Jose Miguel Hallpike Review of Systems Constitutional: Negative. Neurological: Positive for weakness. The patient's medical history, surgical history, and social history were reviewed and updated as appropriate. Objective: BP (!) 163/83 Pulse 68 Ht 1.6 m (5' 3 ) Wt 56.2 kg (124 lb) SpO2 93% BMI 21.97 kg/m?? Mental Status - Alert. General Appearance - Cooperative. Not in acute distress. Build & Nutrition - Well nourished. HEENT - Eye Note: Pupils equal, reactive to light and to accommodation directly and consensually Peripheral Vascular - Upper Extremity: Inspection - Bilateral - Normal. Neurologic Mental Status: Speech - Normal. Cranial Nerves: III Oculomotor: Pupillary constriction - Bilateral - Normal. Note: no ptosis, no Pancho's sign, no Jacky Kendal pupil VII Facial: - Normal and symmetric facial muscles. Eye Movements: - PERRL. EOMI. Sensory: Intact to light touch in all 4 extremities. Reflexes: 2+ throughout. Cerebellar: No ataxia or dysmetria on FTN Musculoskeletal: Motor: Tone: Normal. Bulk: Normal. Strength: 5/5 bilaterally in the upper and lower extremities. Gait: Normal Assessment: 1. Gait instability 2. Cerebral infarction (HCC) 3. BPPV (benign paroxysmal positional vertigo) 4. Wrist drop Plan: Diagnoses and all Orders for this Visit: 1. Gait instability CANCELED: AMB REFERRAL TO PHYSICAL THERAPY EVALUATE, TREAT AND PLAN OF CARE 2. Cerebral infarction (HCC) MR Brain Without IV Contrast 3. BPPV (benign paroxysmal positional vertigo) AMB REFERRAL TO PHYSICAL THERAPY EVALUATE, TREAT ANDPLAN OF CARE 4. Wrist drop AMB REFERRAL TO OCCUPATIONAL THERAPY EVALUATE, TREAT AND PLAN OF CARE Follow Up: Return in about 3 months (around 04/28/2025). Discussion and Summary: Heidi Shook is a 74 y.o. female who presents in the clinic as a referral from Chris Valdivia APRN due to concern for right arm weakness. Reports that in 10/2024 was sitting in the living room, startled awake and noticed she was unable tofeel her RUE. Presented to clinic 3 days later-referred to [facility] for CT brain-this was unrevealing. In 11/2024 fell of a ladder and landed on his right elbow-hand went numb with associated wrist drop. NCS/EMG performed-per pt confirmed nerve injury. Continues to have numbness on the dorsum of her right hand. Pt notes that she has falls due to dizziness-marquis vertigo-veers sideways when ambulating. Hx of HTN and HLD. Endorses DM-last a1c was 6.2-on metformin. Endorses Hx of carotid artery stenosis. +Jose Miguel Hallpike. Will refer patient for vestibular training exercises given presentation consistent with BPPV. Given risk factors of hypertension and hyperlipidemia we cannot r/o posterior ischemic infarcts thus we will refer patient for MRI brain without contrast. I am also referring patient to occupational therapy for right hand focused exercises. Follow up in clinic in 3 months. Pt understands they can call the clinic at anytime with questions. Time spent on the date of encounter: 45 minutes. Time includes time spent reviewing previous medical records, time spent [id number] with patient, counseling/education, putting in orders and electronic documentation. documented in this encounter Plan of Treatment Upcoming Encounters Date Type Department Care Team (Late st Contact Info) Description 05/01/2025 1:45 PM EDT Office Visit [facility] Neurology - [address] [place] [phone] Edwin Hernandez MD [address] [place] [address] [address] [place] [address] Scheduled Orders Name Type Priority Associated Diagnoses Orde r Schedule MR Brain Without IV Contrast Imaging Routine Cerebral infarction (HCC) Expected: 01/26/2025, Expires: 02/26/2026 Scheduled Referrals Name Type Priority Associated Diagnoses Order Schedule AMB REFERRAL TO PHYSICAL THERAPY EVALUATE, TREAT AND PLAN OF CARE Outpatient Referral Routine BPPV (benign paroxysmal positional vertigo) Ordered: 01/26/2025 AMB REFERRAL TO OCCUPATIONAL THERAPY EVALUATE, TREAT AND PLAN OF CARE Outpatient Referral Routine Wrist drop Expected: 01/26/2025, Expires: 07/29/2026 documented as of this encounter Visit Diagnoses Diagnosis Gait instability- Primary Abnormality of gait Cerebral infarction (HCC) Unspecified cerebral artery occlusion with cerebral infarction BPPV (benign paroxysmal positional vertigo) Benign paroxysmal positional vertigo Wrist drop Wrist drop (acquired) documented in this encounter Care Teams Broadcast Field Supervisor Relationship Specialty Start Date End Date Chris Valdivia [address] [place] [address] PCP - General 10/12/23 Sawyer Hernández MD [address] [place] [address] Saw Feeder Cardiology 10/12/23 David Loredo MD [address] [place] [address] [address] [place] [address] Surgeon Cardiothoracic Surgery 11/19/23 Neville Maki MD [address] [place] [address] [address] [place] [address] Cardiology 12/01/23 documented as of this encounter
--- OUTSIDE RECORDS SUMMARY | 2025-02-13 12:46 | XMS_ITS | Clinical Summary ---
Author Organization [facility] Address [address] [place] [address] Care Team Providers Care Blind Cleaner Name Role Phone Other, Physician Sashaofnando LIZ Primary Care Provi pippa Unavailable Allergies Active Allergy Reactions Criticality Noted Date Comments Neomycin Unknown 10/02/2023 Penicillins Rash 10/02/2023 Sulfa Antibiotics Anaphylaxis High 10/02/2023 Medications albuterol 108 (90 Base) mcg/puff inhaler Use 1 puff every 4 (four) hours as needed. Active amitriptyline (ELAVIL) 75 MG TABS Take 75 mg by mouth daily. Active atorvastatin (LIPITOR) 40 MG TABS Take 40 mg by mouth daily. Active DULoxetine (CYMBALTA) 60 MG CPEP Take 60 mg by mouth daily. 4 Active furosemide (LASIX) 20 MG TABS Take 20 mg by mouth daily. Active losartan (COZAAR) 25 MG TABS Take 25 mg by mouth daily. Active magnesium oxide (MAG-OX) 400 mg TABS Take 400 mg by mouth daily. 4 Active metFORMIN (GLUCOPHAGE) 500 MG TABS Take 1,000 mg by mouth 2 (two) times a day. Active metoprolol succinate (TOPROL-XL) 25 mg extended-release tablet Take 25 mg by mouth daily. Active omeprazole (PRILOSEC) 20 MG CPDR Take 20 mg by mouth daily. 4 Active pioglitazone (ACTOS) 15 MG TABS Take 15 mg by mouth daily. Active tiZANidine (ZANAFLEX) 4 MG TABS Take 4 mg by mouth as needed. Active triamcinolone (KENALOG) 0.1% cream Apply 1 Application topically 2 (two) times daily. Active zolpidem (AMBIEN) 5 MG tablet Take 5 mg by mouth at bedtime. Active betamethasone dipropionate (DIPROLENE) 0.05 % CREA Apply 0.05 each topically daily. Active Active Problems Problem Noted Date Diagnosed Date Diabetes mellitus 10/02/2023 Diastolic dysfunction 05/15/2023 Bilateral carotid artery occlusion 05/15/2023 Essential hypertension 04/15/2023 Near syncope 04/15/2023 Dyspnea on exertion 04/15/2023 Tight chest 04/15/2023 Electrocardiogram abnormal 04/15/2023 Diabetic neuropathy 07/30/2021 Type 2 diabetes mellitus without complication Hyperlipidemia 07/29/2021 Persistent insomnia 07/29/2021 Depressive disorder 07/29/2021 Neuropathy 07/29/2021 Hypertensive disorder 07/29/2021 Edema 07/29/2021 Social History Tobacco Use Types Packs/Day Years Used Date Smoking Tobacco: Former Cigarettes Smokeless Tobacco: Never Tobacco Cessation:Counseling Given: Not Answered Alcohol Use Standard Drinks/Week Comments Not Currently 0 (1 standard drink = 0.6 oz pur e alcohol) Food Insecurities Answer Date Recorded Worried about running out of food Not on file 09/30/2023 Food Bought Not on file 09/30/2023 Housing/Utilities Answer Date Recorded Worried about losing home Not on file 2023 Stayed outside house Not on file 09/30/2023 Unable to get utilities Not on file 09/30/19 Interpersonal Safety Answer Date Record ed Feel physically or emotionally unsafe where curr ently live Not on file 09/30/2023 Harm by anyone Not on file 09/30/2023 Emotionally Harmed Not on file 09/30/2023 Transportation Answer Date Recorded Worried about transportation Not on file Utilities Answer Date Recorded Worried about losing home Not on file 2023 Stayed outside house Not on file 11/09/2023 Unable to get utilities Not on file 11/09/19 Comments Unknown Sex and Gender Information Value Date Recorded Sex Assigned at Not on file Legal Sex Female 2:58 PM EDT Gender Identity Not on file Sexual Orientation Not on file Last Filed Vital Signs Vital Sign Reading Time Taken Comments Blood Pressure - - Pulse - - Temperature - - Respiratory Rate - - Oxygen Saturation - - Inhaled Oxygen Concentration - - Weight 74.4 kg (164 lb) 10/02/2023 10:53 AM EDT Height 160 cm (5' 3 ) 10/02/2023 10:53 AM EDT Body Mass Index 29.05 10/02/2023 10:53 AM EDT Plan of Treatment Health Maintenance Due Date Last Done Comments Hepatitis C Screening 1952 Mammogram Screening 1992 Colonoscopy 1997 Pneumococcal 50+ (1 of 1 - PCV) 2002 Shingrix (#1) 2002 DEXA Scan 2017 Influenza Vaccine (#1) 2025 RSV Vaccine (60+ or ) (1 - 1-dose 75+ series) 2027 DTap,Tdap,and Td (2 - Td or Tdap) 11/14/2031 022 HPV Aged Out No longer eligi ble based on patient's age to complete this topic Meningococcal conjugate amira nt 4 (MCV4) Aged Out No longer eligible b ased on patient's age to complete this topic RSV Immunization (<20 months) Aged Out No longer eligible based on patient's age to complete this topic Insurance MEDICARE on file Care Teams Blind Cleaner Relationship Specialty Start Date End Date Other, Physician MD Monica Other PCP - General Internal Medicine 09/30/23
--- OUTSIDE RECORDS SUMMARY | 2025-02-13 12:46 | XMS_ITS | Encounter Summary ---
Author Organization [facility] Address [address] [place] [address] [place] [address] Phone Care Team Providers Care Synthetic Filament Extruder Name Role Phone Other, Physician Monica LIZ Primary Care Provi pippa Unavailable Encounter Details Date Type Department Care Team (Late st Contact Info) Description 10/05/2023 Telephone [facility] Heart & Vascular [facility] [facility] [address] [place] [address] [place] [address] [place] [address] Social History Tobacco Use Types Packs/Day Years Used Date Smoking Tobacco: Former Cigarettes Smokeless Tobacco: Never Alcohol Use Standard Drinks/Week Comments Not Currently [...] Recorded Worried about transportation Not on file Comments Unknown Sex and Gender Information Value Date Recorded Sex Assigned at Not on file Legal Sex Female 2:58 PM EDT Gender Identity Not on file Sexual Orientation Not on file documented as of this encounter Miscellaneous Notes * Telephone Encounter - Abi Maldonado - 10/05/2023 12:21 PM EDT LVM about referral documented in this encounter Plan of Treatment Not on file documented as of this encounter Visit Diagnoses Not on filedocumented in this encounter Care Teams Synthetic Filament Extruder Relationship Specialty Start Date End Date Other, Physician MD Monica Other PCP - General Internal Medicine 09/30/23 documented as of this encounter
--- OUTSIDE RECORDS SUMMARY | 2025-02-13 12:47 | XMS_ITS | Encounter Summary ---
Author Organization [employer] ([place], [place], [place], [place]) Address [address] [place] [address] Care Team Providers Care L Tacker Name Role Phone Chris Valdivia Primary Care Provider [phone] Sawyer Hernández MD Unavailable [phone] David Loredo MD Unavailable [phone] Neville Maki MD Unavailable Encounter Details Date Type Department Care Team (Latest Contact Info) Description 01/26/2025 Travel Social History Tobacco Use Types Packs/Day Years Used Date Smoking Tobacco: Former Cigarettes 1 18 Passive Smoke Exposure: Never Smokeless Tobacco: Never Alcohol Use Standard Drinks/Week Comments Not Currently 0 (1 standard drink = 0.6 oz pur e alcohol) Family and Community Support Answer Joaquín e Recorded Help with Day to Day Activities Not on file 10/12/2023 Feeling Lonely or Isolated Not on file 10/11 Educational Attainment Answer Date Matias rded Speak language other than Faroese at home Not on file 10/12/2023 Want [...] on file documented as of this encounter Plan of Treatment Upcoming Encounters Date Type Department Care Team ( Contact Info) Description 05/01/2025 1:45 PM EDT Office Visit [facility] Neurology - [address] [facility] [address] [place] [phone] Edwin Hernandez MD [address] [facility] [address] [place] [address] documented as of this encounter Visit Diagnoses Not on filedocumented in this encounter Care Teams L Tacker Relationship Specialty Start Date End Date Chris Valdivia [address] [place] [address] PCP - General 10/12/23 Sawyer Hernández MD [address] [place] [address] Sawyer Helper Cardiology 10/12/23 [place] [address] [place] [address] [address] [place] [id number] Surgeon Cardiothoracic Surgery 11/19/23 Neville Maki MD [address] [facility] [address] [place] [address] Cardiology 12/01/23 documented as of this encounter
--- OUTSIDE RECORDS SUMMARY | 2025-02-13 12:47 | XMS_ITS | Encounter Summary ---
Author Organization [employer] ([place], [place], [place], [place]) Address [address] [place] [address] Care Team Providers Care Armament Aircraft Mechanic Name Role Phone Chris Valdivia Primary Care Provider [phone] Sawyer Hernández MD Unavailable [phone] David Loredo MD Unavailable [phone] Neville Maki MD Unavailable Reason for Referral * Consultation (Routine) - Closed Specialty Diagnoses / Procedures Referred By Contaung t Referred To Contact Neurology Diagnoses Other symptoms and signs involving the musculoskeletal system Right arm weakness Chris [address]divia [address] [place] [address] Phone: tel: fax: Edwin Hernandez MD [address] [place] [address] [address] [place] [address] Phone: tel: fax: Referral ID Status Reason Start Date Expiration Date V isits Requested Visits Authorized [id number] Closed Specialty Services Required 12/23/2024 12/23/2025 1 1 Encounter Details Date Type Department Care Team (Latest Contact Info) Description 12/23/2024 Outside Orders [facility] [address] [facility] [address] [place] [address] Chris Valdivia [address] [place] [address] Other symptoms and signs involving the musculoskeletal system (Primary Dx); Right arm weakness Social History Tobacco Use Types Packs/Day Years Used Date Smoking Tobacco: Former Cigarettes Passive Smoke Exposure: Never Smokeless Tobacco: Never Alcohol Use Standard Drinks/Week Comments Not Currently 0 (1 standard drink = 0.6 oz pur e alcohol) Family and Community Support Answer Joaquín e Recorded Help with Day to Day Activities Not on file 10/12/2023 Feeling Lonely or Isolated Not on file 10/11 Educational Attainment Answer Date Matias rded Speak language other than Argentine at home Not on file 10/12/2023 Want [...] Description 05/01/2025 1:45 PM EDT Office Visit [facility] Neurology - [address] [place] [phone] Edwin Hernandez MD [address] [place] [address] Scheduled Referrals Name Type Priority Associated Diagnoses Orde r Schedule Ambulatory referral to Neurology Outpatient Referral Routine Other symptoms and signs involving the musculoskeletal system Right arm weakness Ordered: 12/23/2024 documented as of this encounter Visit Diagnoses Diagnosis Other symptoms and signs involving the musculoskeletal system- Primary Right arm weakness Other musculoskeletal symptoms referable to limbs documented in this encounter Care Teams Armament Aircraft Mechanic Relationship Specialty Start Date End Date Chris Valdivia [address] [place] [address] PCP - General 10/12/23 Sawyer Hernández MD [address] [place] [address] Siebel Crm Developer Cardiology 10/12/23 David Loredo MD [address] [place] [address] [address] [place] [id number] Surgeon Cardiothoracic Surgery 11/19/23 Neville Maki MD [address] [place] [address] [address] [place] [address] Cardiology 12/01/23 documented as of this encounter
--- OUTSIDE RECORDS SUMMARY | 2025-02-13 12:47 | XMS_ITS | Referral Summary ---
Author Organization [facility] Address [address] [place] [address] Care Team Providers Care Head Char Filter Tank Tender Name Role Phone Other, Physician Sashaofnando LIZ [...] 10/02/2023 10:53 AM EDT Plan of Treatment Not on file Insurance on file Care Teams Head Char Filter Tank Tender Relationship Specialty Start Date End Date Other, Physician SashaofMD nando Other PCP - General Internal Medicine 09/30/23
--- OUTSIDE RECORDS SUMMARY | 2025-02-13 12:47 | XMS_ITS | Clinical Summary ---
Author Organization [employer] ([place], [place], [place], [place]) Address [address] [place] [address] Care Team Providers Care Pharmacy Sales Representative Name Role Phone Chris Valdivia Primary Care Provider [phone] Sawyer Hernández MD Unavailable [phone] David Loredo MD Unavailable [phone] Neville Maki MD Unavailable Allergies Active Allergy Reactions Criticality Noted Date Comments Aminoglycosides High 05/11/2012 Other Reaction(s): Not available, Other - please document in the comment field, Unknown Neomycin Low 10/15/2023 Penicillin Rash Low 10/15/2023 Penicillins Rash Low 01/28/2021 Childhood reaction Sulfa (Sulfonamide Antibiotics) Anaphylaxis High 05/11/2012 Other Reaction(s): Wheezing Theophylline Rash Medium 05/11/2012 Tolerates amoxicillin Xanthines Rash Medium 05/11/2012 Tolerates amoxicillin Zoster Vaccine Live 05/28/2015 Cannot have due to anaphylaxis with neomycin Medications amitriptyline (ELAVIL) 75 MG tablet Take 1 tablet (75 mg total) by mouth daily. 4 Active atorvastatin (LIPITOR) 40 MG tablet SMARTSI Tablet(s) By Mouth Every Evening 4 Active DULoxetine (CYMBALTA) 60 MG capsule Take 1 capsule (60 mg total) by mouth daily. 4 Active furosemide (LASIX) 20 MG tablet Take 1 tablet (20 mg total) by mouth daily. 4 Active losartan (COZAAR) 25 MG tablet Take 1 tablet (25 mg total) by mouth daily. 4 Active magnesium oxide (MAG-OX) 400 mg (241.3 mg magnesium) tablet Take 1 tablet (400 mg total) by mouth daily. 4 Active metFORMIN (GLUCOPHAGE) 500 MG tablet Take 2 tablets (1,000 mg total) by mouth 2 (two) times daily. Active metoprolol succinate (TOPROL-XL) 25 MG 24 hr tablet Take 1 tablet (25 mg total) by mouth daily. 4 Active omeprazole (PriLOSEC) 20 MG capsule Take 1 capsule (20 mg total) by mouth daily. Active tiZANidine (ZANAFLEX) 4 MG tablet Take 1 tablet (4 mg total) by mouth daily as needed. Active zolpidem (AMBIEN) 5 MG tablet Take 1 tablet (5 mg total) by mouth nightly. Active triamcinolone (KENALOG) 0.1 % topical cream Apply topically 2 (two) times daily to affected area.. Active betamethasone dipropionate (DIPROLENE) 0.05 % cream Apply topically 2 (two) times daily. Active albuterol HFA (VENTOLIN HFA) 90 mcg/actuation inhaler Inhale 1 puff by mouth via inhaler every 6 (six) hours as needed. Active aspirin 81 MG EC tablet Take 1 tablet (81 mg total) by mouth daily. Active dapagliflozin propanediol (Farxiga) 10 mg tablet TAKE ONE (1) TABLET (10 MG TOTAL) BY MOUTH DAILY. 30 tablet 1 5 Active HYDROcodone-aceta minophen (NORCO) 5-325 mg per tablet Take 1 tablet by mouth 2 (two) times daily. Max Daily Amount: 2 tablets 5 Active Active Problems Problem Noted Date Diagnosed Date Anxiety 11/19/2023 Arthritis 11/19/2023 Hypertension 11/19/2023 Type 2 diabetes mellitus 10/15/2023 Hyperlipidemia 10/15/2023 Persistent insomnia 10/15/2023 Depressive disorder 10/15/2023 Neuropathy due to type 2 diabetes mellitus 10/14 Diastolic dysfunction 10/15/2023 Bilateral carotid artery occlusion 10/15/2023 Edema 10/15/2023 Peripheral venous insufficiency 10/15/2023 Encounters Date Type Department Care Team Description 01/26/2025 1:45 PM EDT Office Visit [facility] Neurology - [address] [place] [address] Edwin Hernandez MD Gait instability (Primary Dx); Cerebral infarction (HCC); BPPV (benign paroxysmal positional vertigo); Wrist drop 01/26/2025 Travel 12/27/2024 Refill [facility] Cardiology [address] [place] [id number] Neville Maki MD 12/23/2024 Outside Orders [facility] Neurology - [address] [facility] [address] [place] [address] Chris Vladivia Other symptoms and signs involving the musculoskeletal system (Primary Dx); Right arm weakness from Last 3 Months Family History * Patient is adopted Medical History Relation Name Comments Aneurysm Mother Brain cancer Sister Ovarian cancer Sister Relation Name Status Comments Mother Sister Social History Tobacco Use Types Packs/Day Years [...] Date Matias rded Speak language other than Guatemalan at home Not on file 10/12/2023 Want [...] Pulse 68 01/26/2025 1:32 PM EDT Temperature 36.1 C (97 F) 01/06/2024 12:02 PM EDT Respiratory Rate - - Oxygen Saturation 93% 01/26/2025 1:32 PM EDT Inhaled Oxygen Concentration - - Weight 56.2 kg (124 lb) 01/26/2025 1:32 PM EDT Height 160 cm (5' 3 ) 01/26/2025 1:32 PM EDT Body Mass Index 21.97 01/26/2025 1:32 PM EDT Plan of Treatment Upcoming Encounters Date Type Department Care Team (Late st Contact Info) Description 05/01/2025 1:45 PM EDT Office Visit [facility] Neurology - [address] [place] [address] Edwin Hernandez MD [address] [place] [address] Health Maintenance Due Date Last Done Comments CT Colonography 1952 Colonoscopy 1952 Colorectal Cancer Screening 1952 DXA SCAN 1952 Diabetic Kidney Health Evalu ation (KED) 1952 FOBT/FIT 1952 Fit-DNA (Cologuard) 1952 Sigmoidoscopy 1952 Diabetic Eye Exam 1962 Hepatitis C Screening 1970 Shingles Vaccine (Zoster) (1 of 2) 2002 Breast Cancer Screening 11/10/2019 11/10/19 18, 11/09/2017, 05/16/2015, Additional history exists Hemoglobin A1C 10/15/2023 COVID-19 VACCINE (8 2023-2 5 season) 2024 04/26/2024, 05/08/2023, 03/22/2022, Additional history exists Influenza Vaccine (#1) 2025 , 04/10/2023, 04/11/2022, Additional history exists Tobacco Cessation Counseling and Screening (12+) 01/26/2026 01/26/2025 Respiratory Syncytial Virus (RSV) Adult or (1 - 1-dose 75+ series) 2027 DTAP/TDAP/TD VACCINES (3 - T d or Tdap) 11/14/2031 11/13/2021, 04/08/2013 Pneumococcal 50+ years Completed 03/28/2021, 2018 Falls Risk Screening Completed 01/26/2025 Insurance BLUE CROSS/BLUE SHIELD Care Teams Pharmacy Sales Representative Relationship Specialty Start Date End Date Chris Valdivia [address] [place] [address] PCP - General 10/12/23 Sawyer Hernández MD [address] [place] [address] Manager Sterile Processing Cardiology 10/12/23 [place] [address] [place] [address] [address] [place] [id number] Surgeon Cardiothoracic Surgery 11/19/23 [place] [address] [place] [address] [address] [place] [id number] Cardiology 12/01/23
--- OUTSIDE RECORDS SUMMARY | 2025-02-13 12:47 | XMS_ITS | Referral Summary ---
Author Organization [employer] ([place], [place], [place], [place]) Address [address] [place] [address] Care Team Providers Care Risk Reduction Counselor Name Role Phone Chris Valdivia Primary Care Provider Sawyer Hernández MD Unavailable [phone] David Loredo MD Unavailable Neville Maki MD Unavailable Encounters Date Type Department Care Team Description 01/26/2025 Travel 01/26/2025 1:45 PM EDT Office Visit [facility] Neurology - [address] [place] [address] Edwin Hernandez MD Gait instability (Primary Dx); Cerebral infarction (HCC); BPPV (benign paroxysmal positional vertigo); Wrist drop 12/27/2024 Refill [facility] Cardiology [address] [place] [address] Neville Maki MD 12/23/2024 Outside Orders [facility] Neurology - [address] [place] [address] Drive [facility] [address] [place] [address] Chris Valdivia Other symptoms and signs involving the musculoskeletal system (Primary Dx); Right arm weakness from Last 3 Months Allergies Active Allergy Reactions Criticality Noted Date [...] total) by mouth 2 (two) times daily. 4 Active metoprolol succinate (TOPROL-XL) 25 MG 24 hr tablet Take 1 tablet (25 mg total) by mouth daily. 4 Active omeprazole (PriLOSEC) 20 MG capsule Take 1 capsule (20 mg total) by mouth daily. 4 Active tiZANidine (ZANAFLEX) 4 MG tablet Take 1 tablet (4 mg total) by mouth daily as needed. 4 Active zolpidem (AMBIEN) 5 MG tablet Take 1 tablet (5 mg total) by mouth nightly. 4 Active triamcinolone (KENALOG) 0.1 % topical cream [...] 10/15/2023 Edema 10/15/2023 Peripheral venous insufficiency 10/15/2023 Social History Tobacco Use Types Packs/Day Years [...] Date Matias rded Speak language other than Icelandic at home Not on file 10/12/2023 Want [...] Description 05/01/2025 1:45 PM EDT [facility] [address] [facility] [address] [place] [address] Edwin Hernandez MD [address] [facility] [address] [place] [address] Insurance [place] CROSS/BLUE SHIELD Care Teams Risk Reduction Counselor Relationship Specialty Start Date End Date Chris Valdivia [address] [place] [address] PCP - General 10/12/23 Sawyer Hernández MD [address] [place] [address] Deputy Clerk Cardiology 10/12/23 David Loredo MD [address] [facility] [address] [place] [address] Surgeon Cardiothoracic Surgery 11/19/23 Neville Maki MD [address] [place] [address] Cardiology 12/01/23
--- OUTSIDE RECORDS SUMMARY | 2025-02-13 12:47 | XMS_ITS | Encounter Summary ---
Author Organization [employer] ([place], [place], [place], [place]) Address [address] [place] [address] Care Team Providers Care Police Patrol Officer Name Role Phone Chris Valdivia Primary Care Provider Sawyer Hernández MD Unavailable [phone] David Loredo MD Unavailable Neville Maki MD Unavailable Reason for Visit * Reason Comments Medication Refill Encounter Details Date Type Department Care Team (Late st Contact Info) Description 12/27/2024 Refill [facility] Cardiology [address] [place] [address] Neville Maki MD [address] [facility] [address] [place] [address] Social History Tobacco Use Types Packs/Day Years [...] Date Matias rded Speak language other than Cymraes at home Not on file 10/12/2023 Want [...] Description 05/01/2025 1:45 PM EDT Office Visit [facility] Neurology - [address] [facility] [address] [place] [address] Edwin Hernandez MD [address] [facility] [address] [place] [address] documented as of this encounter Visit Diagnoses Not on filedocumented in this encounter Care Teams Police Patrol Officer Relationship Specialty Start Date End Date Chris Valdivia [address] [place] [address] PCP - General 10/12/23 Sawyer Hernández MD [address] [place] [address] Agricultural Agent Cardiology 10/12/23 David Loredo MD [address] [place] [address] [address] [place] [address] Surgeon Cardiothoracic Surgery 11/19/23 Neville Maki MD [address] [facility] [address] [place] [address] Cardiology 12/01/23 documented as of this encounter
--- OUTSIDE RECORDS SUMMARY | 2025-02-13 12:47 | XMS_ITS | Clinical Summary ---
Author Organization Healthcare Address [address] [place] [id number] Care Team Providers Care Hand Bindery Assembly Worker Name Role Phone Chris Valdivia SHERRILL Primary Care Provider [phone] Allergies Active Allergy Reactions Criticality Noted Date Comments Neomycin Other - please docum ent in the comment field Low 05/27/2022 Penicillins Rash Low 05/27/2022 Sulfa Drugs Anaphylaxis High 05/27/2022 Medications amitriptyline (Elavil) 75 MG tablet Take 75 mg by mouth 1 (one) time each day. 04/11/2022 Active aspirin 81 MG EC tablet Take 1 tablet every day by oral route. Active atorvastatin (Lipitor) 40 MG tablet 1 (one) time each day in the evening. 03/03/2022 Active DULoxetine (Cymbalta) [address] capsule Take by mouth 1 (one) time each day. 05/08/2022 Active furosemide (Lasix) 20 MG tablet 03/08/2022 Active gabapentin (Neurontin) 800 MG tablet Take 800 mg by mouth 2 (two) times a day. 05/14/2022 Active losartan (Cozaar) 25 MG tablet Take 0.5 tablets by mouth 1 (one) time each day. Active metFORMIN (Glucophage) 500 MG tablet Take 1,000 mg by mouth 2 (two) times a day. 03/28/2022 Active pioglitazone (Actos) 15 MG tablet Take 15 mg by mouth 1 (one) time each day. 03/03/2022 Active zolpidem (Ambien) 5 MG tablet Take 5 mg by mouth every night. 04/11/2022 Active HYDROcodone-ana taminophen ([place]) 5-325 MG tablet Take 1 tablet by mouth 3 (three) times a day. 75 tablet 05/28/2022 Active Social History Tobacco Use Types Packs/Day Years Used Date Smoking Tobacco: Never Smokeless Tobacco: Never Tobacco Cessation:Counseling Given: Not Answered Alcohol Use Standard Drinks/Week Comments Yes 0 (1 standard drink = 0.6 oz pur e alcohol) Comments Unknown Sex and Gender Information Value Date Recorded Sex Assigned at Not on file Legal Sex Female 2:25 PM EDT Gender Identity Not on file Sexual Orientation Not on file Last Filed Vital Signs Vital Sign Reading Time Taken Comments Blood Pressure 124/76 05/27/2022 2:21 PM EST Pulse - - Temperature - - Respiratory Rate - - Oxygen Saturation - - Inhaled Oxygen Concentration - - Weight 70.8 kg (156 lb) 05/27/2022 2:21 PM EST Height 162.6 cm (5' 4 ) 05/27/2022 2:21 PM EST Body Mass Index 26.78 05/27/2022 2:21 PM EST Plan of Treatment Health Maintenance Due Date Last Done Comments [facility]-Bone Density Scan 1952 [facility]-Depression Screening 1952 [facility]-Infant/Child/Adol SDOH Screenings 1952 [facility]- SDOH Screenings 1970 [facility]-Adult SDOH Screenings 1970 CT Colonography 1997 Colonoscopy 1997 FIT-DNA 1997 FIT 1997 FOBT 1997 Sigmoidoscopy 1997 [facility]-Colorectal Cancer Screening 1997 [facility]Y-Pneumococcal Vaccine: 50+ Years (1 of 1 - PCV) 2002 [facility]Y-Zoster Vaccines (1 of 2) 2002 [id number] Vaccine (2023- season) 2024 03/22/2022, 10/10/2021, 05/28/2021, Additional history exists [facility]-Influenza Vaccine (#1) 2025 04/11/2022 [facility]Y-RSV Vaccine: 60+ Years or (1 - 1-dose 75+ series) 2027 [facility]Y-DTaP,Tdap,and Td Vaccines (2 - Td or Tdap) 11/14/2031 11/13/2021 HPV Vaccines Aged Out No longer eligi ble based on patient's age to complete this topic [facility]Y-HIB Vaccines Aged Out No longer e ligible based on patient's age to complete this topic UKY-Hepatitis A Vaccines Aged Out No longer eligible based on patient's age to complete this topic UKY-IPV Vaccines Aged Out No longer e ligible based on patient's age to complete this topic UKY-Rotavirus Vaccines Aged Out No lo nger eligible based on patient's age to complete this topic [place] [address] [facility] MEDICARE Care Teams Hand Bindery Assembly Worker Relationship Specialty Start Date End Date Chris Valdivia APRN [address] [place] [address] [facility] - General 05/27/22
--- NOTE | 2025-02-13 12:49 | MR_ITS ---
FINAL REPORT TECHNIQUE: Multiplanar MR without contrast CLINICAL HISTORY: right arm and hand numbness, fall 3 weeks ago hitting her head FINDINGS: Diffusion sequences show no signal abnormality to indicate acute infarct. Scattered subcortical and periventricular white matter signal changes are seen compatible with mild chronic ischemic gliotic disease. Moderate generalized atrophy is present. No mass, hemorrhage or edema is seen. Ventricles are normal. Major vascular flow voids are intact. IMPRESSION: 1. No mass, acute infarct or hydrocephalus 2. Atrophy and chronic ischemic white matter changes Reviewed, Interpreted and Dictated by Golden Wood MD Transcribed by Tayla Jeffers Authenticated and [facility]
== END 2025-02-13 23:59 | disposition home or self-care (01) ==
LOC: RAD 12:45
PROVIDERS: PCP Nurse Practitioner Family; Visit Provider Psychiatry & Neurology Neurology
DX: G31.9 Degenerative disease of nervous system, unspecified (principal); I63.9 Cerebral infarction, unspecified; R90.89 Other abnormal findings on diagnostic imaging of central nervous system
CPT/HCPCS: 70551

== ENCOUNTER 2025-05-10 13:10 | Outpatient (CLI) | payer MEDICARE, SELFPAY ==
--- NOTE | 2025-05-10 13:17 | XR_ITS ---
FINAL REPORT CLINICAL HISTORY: right knee pain COMPARISON: None FINDINGS: AP, lateral and oblique views of the right knee were obtained. There is no prior exam for comparison. There is no acute osseous abnormality of the right knee. Mild degenerative joint disease is present. The soft tissues are normal. There is no joint effusion. IMPRESSION: No acute osseous abnormality of the right knee. Reviewed, Interpreted and Dictated by Tania Ray MD Transcribed by Megan Olivares Authenticated and [facility]
--- OUTSIDE RECORDS SUMMARY | 2025-05-10 13:25 | XMS_ITS | Clinical Summary ---
Author Organization Healthcare Address [address] [place] [address] Care Team Providers Care Relations Director Name Role Phone Chris Valdivia SHERRILL Primary Care Provider [phone] Allergies Active Allergy Reactions Criticality Noted Date [...] mouth every night. 04/11/2022 Active HYDROcodone-ana taminophen ([place]) 5-325 MG tablet Take 1 tablet by mouth 3 (three) times a day. 75 tablet 05/28/2022 Active Encounters Date Type Department Care Team Description 04/25/2025 Telephone MD Clinic [facility] [address] [place] [address] [facility], Physician, from Last 3 Months Social History Tobacco Use Types Packs/Day Years [...] [facility]-Bone Density Scan 1952 [facility]-Depression Screening 1952 [facility]-/Child/Adol SDOH Screenings 1952 [facility]- SDOH Screenings 1970 [facility]Y-Adult SDOH Screenings 1970 CT Colonography 1997 Colonoscopy 1997 FIT-DNA 1997 FIT 1997 FOBT 1997 Sigmoidoscopy 1997 [facility]Y-Colorectal Cancer Screening 1997 UKY-Pneumococcal Vaccine: 50+ Years (1 of 1 - PCV) 2002 UKY-Zoster Vaccines (1 of 2) 2002 [id number] Vaccine ( - season) 2025 03/22/2022, 10/10/2021, 05/28/2021, Additional history exists [facility]Y-Influenza [...] age to complete [place] [address] [facility] MEDICARE Care Teams Relations Director Relationship Specialty Start Date End Date Chris Valdivia, SHERRILL [address] [place] [address] PCP - General 05/27/22
--- OUTSIDE RECORDS SUMMARY | 2025-05-10 13:26 | XMS_ITS | Encounter Summary ---
Author Organization Healthcare Address [address] [place] [address] Care Team Providers Care Asbestos Pipe Supervisor Name Role Phone Chris Valdivia APRN Primary Care Provider [phone] Encounter Details Date Type Department Care Team (Late st Contact Info) Description 04/25/2025 Telephone [place] [facility] [address] [place] [address] [facility], Physician, [address] [place], [place] [id number] Social History Tobacco Use Types Packs/Day Years Used Date Smoking Tobacco: Never Smokeless Tobacco: Never Alcohol Use Standard Drinks/Week Comments Yes 0 (1 standard drink = 0.6 oz pur e alcohol) Comments Unknown Sex and Gender Information Value Date Recorded Sex Assigned at Not on file Legal Sex Female 2:25 PM EDT Gender Identity Not on file Sexual Orientation Not on file documented as of this encounter Plan of Treatment Not on file documented as of this encounter Visit Diagnoses Not on filedocumented in this encounter Additional Health Concerns Assessment Noted Time A fall risk assessment has been complete d for the patient 05/27/2022 2:39 PM EST documented as of this encounter Care Teams Asbestos Pipe Supervisor Relationship Specialty Start Date End Date Chris Valdivia APRN [address] [place], [place] [id number] PCP - General 05/27/22 documented as of this encounter
--- OUTSIDE RECORDS SUMMARY | 2025-05-10 13:26 | XMS_ITS | Data Portability ---
Author Organization [place] - [facility] Address [address] [place] [address] Care Team Providers Care Diver Helper Name Role Phone CHRIS DAWN Primary Care Provider Assessment Encounter Date Assessment Date Assessment LastModified by Organization Details LastModified Time 09/30/2023 09/30/2023 Patient Educatio n was printed, I have reviewed the Past Medical, Family, and Social Histories along with ROS and all orders in today's record, and have noted any changes. Medications, charts and records reviewed in full today. - blood pressure 120/72, heart rate 75, oxygen saturation 97% on room air. Weight 164 lb. - LAST ECHO: 05/07/2023 with ejection fraction 65-70% and diastolic dysfunction with mild mitral insufficiency. LAST ISCHEMIC EVAL: 05/07/2023 with no ischemia. LAST CNI: 05/07/2023 with moderate disease at 40-59% bilateral ICS stenosis. Zio Monitor: 04/15/2023- 04/22/23 with heart rate 66-131 with an average of 87. 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 Moderate atheromatous disease of the abdominal aorta without aneurysm or flow-limiting stenosis. Normal right lower extremity runoff. No evidence of flow-limiting stenosis in the runoff of the left lower extremity with three-vessel runoff to the ankle and good visualization of the dorsalis pedis and posterior tibial arteries to the level of the midfoot. Asymmetrical diffuse superficial edema of the left lower extremity below the level of the knee. - Plan: The patient's leg discoloration, and swelling is likely related to chronic venous insufficiency, as previously detailed. Vascular surgery referral. Follow-up in our office in three months. - -Continue other current medications. -Continue aggressive risk factor modification. -Recommend LDL less than 100. -Encouraged regular exercise and activity. - This note was dictated using [employer] software. If something is unclear, or does not make sense, please do not hesitate to contact our office at [phone] for clarification. Not available 09/30/2023 12:34:23 12/30/2023 12/30/2023 patient is now seeing vascular surgery for venous insufficiency in the legs. 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 She has three-vessel runoff to the foot. I think most of her problems are likely secondary to venous insufficiency venous valvular insufficiency. She is on low-dose Lasix. She also takes metoprolol. The blood pressure and heart rate look good. We will get a CT of the chest given the continued shortness of breath. I will see her back in 3 months. Meds and chart reviewed in full today Patient Education was printed, I have reviewed the Past Medical, Family, and Social Histories along with ROS and all orders in today's record, and have noted any changes. Medications, charts and records reviewed in full today. - - LAST ECHO: 05/07/2023 with ejection fraction 65-70% and diastolic dysfunction with mild mitral insufficiency. LAST ISCHEMIC EVAL: 05/07/2023 with no ischemia. LAST CNI: 05/07/2023 with moderate disease at 40-59% bilateral ICS stenosis. Zio Monitor: 04/15/2023- 04/22/23 with heart rate 66-131 with an average of 87. 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 Moderate atheromatous disease of the abdominal aorta without aneurysm or flow-limiting stenosis. Normal right lower extremity runoff. No evidence of flow-limiting stenosis in the runoff of the left lower extremity with three-vessel runoff to the ankle and good visualization of the dorsalis pedis and posterior tibial arteries to the level of the midfoot. Asymmetrical diffuse superficial edema of the left lower extremity below the level of the knee. - Plan: The patient's leg discoloration, and swelling is likely related to chronic venous insufficiency, as previously detailed. Continue vascular surgery follow-up and evaluation for venous insufficiency Continue Lasix at current dose Monitor blood pressure and heart rate CT chest with contrast Follow-up in Cardiology Clinic in 3 months -Continue other current medications. -Continue aggressive risk factor modification. -Recommend LDL less than 100. -Encouraged regular exercise and activity. - This note was dictated using [employer] software. If something is unclear, or does not make sense, please do not hesitate to contact our office at [phone] for clarification. [email or web address] Not available 12/31/2023 14:01:52 04/21/2024 04/21/2024 Patient Educatio n was printed, I have reviewed the Past Medical, Family, and Social Histories along with ROS and all orders in today's record, and have noted any changes. Medications, charts and records reviewed in full today. - BP 122/64, HR 83, O2 100%, Wgt 140 lbs. EKG today reveals sinus rhythm with a rate 83 beats per minute, nonspecific T-wave abnormality, abnormal EKG. - LAST ECHO: 05/07/2023 with ejection fraction 65-70% and diastolic dysfunction with mild mitral insufficiency. LAST ISCHEMIC EVAL: 05/07/2023 with no ischemia. LAST CNI: 05/07/2023 with moderate disease at 40-59% bilateral ICA stenosis. Zio Monitor: 04/15/2023- 04/22/23 with heart rate 66-131 with an average of 87. 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 Moderate atheromatous disease of the abdominal aorta without aneurysm or flow-limiting stenosis. Normal right lower extremity runoff. No evidence of flow-limiting stenosis in the runoff of the left lower extremity with three-vessel runoff to the ankle and good visualization of the dorsalis pedis and posterior tibial arteries to the level of the midfoot. Asymmetrical diffuse superficial edema of the left lower extremity below the level of the knee. CT Chest: 01/2024 Mild emphysema, with 3mm nodules requiring no further up. Chronic L1 fracture. - Plan: Defer repeat laboratory studies to PCP. Discussed CT chest findings to the patient and her family member in full today, and answered all questions the best of my ability. Continue current plan of care. Discussed risk factor modification. Recommend heart healthy diet and exercise as tolerated. Keep follow-up with surgeon. Consider carotid ultrasound at follow-up. Consider echocardiogram at follow-up. Follow-up in three months in our office. Total service time 32 minutes. EKG at follow-up. - -Continue other current medications. -Continue aggressive risk factor modification. -Recommend LDL less than 70. -Encouraged regular exercise and activity. - This note was dictated using [employer] software. If something is unclear, or does not make sense, please do not hesitate to contact our office at [phone] for clarification. Not available 04/21/2024 17:39:44 Plan of Treatment Reminders Order Date Submit Date Provider Last Modified By Organization Details Last Modified Time Details Appointments None recorded. Lab vitamin B12 + folate, serum or blood 2024 025 [facility] (Registration ), [address], [place], [address], 5 08:13:39 CBC w/ auto diff 2024 025 [facility] (Registration ), [address], [place], [address], 5 10:43:02 iron + total iron-maycol ng capacity (TIBC), serum 2024 025 [facility] (Registration ), [address], [place], [address], 5 10:43:02 ferritin, serum or plasma 2024 025 [facility] (Registration ), [place], [address], 5 10:43:02 BMP, serum or plasma 2024 025 [facility] (Registration ), [place], [address], 5 10:43:02 creatinine , serum or plasma [address] (Registration ), [address] [place] [address] , [place], [address], 4 10:26:11 Referral vascular surgeon referral 2023 024 [email or web address] [address] [place], [address], [place], [address], 4 08:16:00 Procedures None recorded. Surgeries None recorded. Imaging electrocar diogram 2023 024 [email or web address] [facility], [address] [place] [address] [address], [place], [address], 4 14:51:39 CT, chest, w/ contrast [address] (Centralized Scheduling), [address] [place] [address] , [place], [address], 4 09:08:33 Medication Orders Feraheme 510 mg/17 mL (30 mg/mL) intravenou s solution [address], [address], 4 15:25:16 Patient TargetsNo targets recorded. Patient InstructionsNo instructions recorded. Reason for Referral Vascular Surgeon Referral fo r Peripheral venous insufficiency Definitive evaluation and management of chronic venous insufficiency. Referring Physician: Lester De La Cruz, Cardiology, Encounter Date: 09/30/2023 Results Created Date Observation Date Name Description Value Unit Range Abnormal Flag Note LastModifiedBy Organization Detail LastModifiedTime 09/09/19 24 09/09/2023 BASIC METAB OLIC PANEL note SEE NOTE Order ing Provi pippa: Mac Dominguez is DETENTION OFFICER Not Available [address] , [place], [address], 09/09/2023 09:49:39 09/09/19 24 09/09/2023 BASIC METAB OLIC PANEL sodium 136 mmol/ L 136-14 5 normal Not Available [address] [place], [place], [address], 09/09/2023 09:49:39 09/09/19 24 09/09/2023 BASIC METAB OLIC PANEL potassium 4.7 mmol/ L 3.5-5. 1 normal Not Available [address] [place], [place], [address], 09/09/2023 09:49:39 09/09/19 24 09/09/2023 BASIC METAB OLIC PANEL chloride 100 mmol/ L 98-107 normal Not Available [address] [place], [place], [address], 09/09/2023 09:49:39 09/09/19 24 09/09/2023 BASIC METAB OLIC PANEL carbon dioxide 29 mmol/ L 24-33 normal Not Available [address] [place], [place], [address], 09/09/2023 09:49:39 09/09/19 24 09/09/2023 BASIC METAB OLIC PANEL anion gap 11.7 mmol/ L 10-20 normal Not Available [address] [place], [address], 09/09/2023 09:49:39 09/09/19 24 09/09/2023 BASIC METAB OLIC PANEL glucose 113 mg/dL 70-99 high Not Available [address] [place], [address], 09/09/2023 09:49:39 09/09/19 24 09/09/2023 BASIC METAB OLIC PANEL blood urea nitrogen 30 mg/dL 7-18 high Not Available [address] [place], [address], 09/09/2023 09:49:39 09/09/19 24 09/09/2023 BASIC METAB OLIC PANEL creatinine 1.43 mg/dL 0.55-1 .02 high Not Available [address] [place], [address], 09/09/2023 09:49:39 09/09/19 24 09/09/2023 BASIC METAB OLIC PANEL GFR (estimated) 39 mL/mi n >60 low [IM KELLEE NT]: The 2020 CKD-E PI equat ion is now the recom emile d stand serafin. This versi on does not inclu de race, as do the 2008 and 2011 CKD-E PI creat inine and creat inine -cyst atin C equat ions. Plebharathi e note that the eGFR now repor joseph is gener ated by the new 2020 CKD-E PI equat ion, which decre ases the eGFR for black s by up to 10% and incre ases the eGFR for non-b lacks by up to 10% in tressa rison to the old equat ion. To tressa re a legac y eGFR to a curre nt value , a 2008 CKD-E PI calcu lator is easil y searc hable on the inter net. Calcu lated GFR: This calcu lated GFR is advoc ated by the Natio nal Kidne y Found ation to be used as an indic ator of Chron ic Kidne y Disea se (CKD) . 5 Stage s of Chron ic Kidne y Disea se. Stage 1 90 mL/mi n or more Healt hy kidne ys or Kidne y damag e with carole l or high GFR detai ls Stage 2 60 to 89 mL/mi n Kidne y damag e and mild decre ase in GFR detai ls Stage 3 30 to 59 mL/mi n Moder ate decre ase in GFR detai ls Stage 4 15 to 29 mL/mi n Sever e decre ase in GFR detai ls Stage 5 Less than 15 mL/mi n On dialy sis or Kidne y failu re Patie nt's clini rema statu s must be consi dered for the care of your patie nt. Not Available [address] , [place], [address], 09/09/2023 09:49:39 09/09/19 24 09/09/2023 BASIC METAB OLIC PANEL BUN/creatini ne ratio 20 12-20 normal Not Available [address] , [place], [address], 09/09/2023 09:49:39 09/09/19 24 09/09/2023 BASIC METAB OLIC PANEL calcium 9.2 mg/dL 8.5-10 .1 normal Not Available [address] , [place], [address], 09/09/2023 09:49:39 09/09/19 24 09/09/2023 BASIC METAB OLIC PANEL osmolality serum calculated 278 mOsm/ kg 272-28 8 normal Not Available [address] , [place], [address], 09/09/2023 09:49:39 09/09/19 24 09/09/2023 BASIC METAB OLIC PANEL performing lab SEE NOTE ML - [facility] R [address] [facility] [address] Not Available [address] , [place], [address], 09/09/2023 09:49:39 09/09/19 24 09/09/2023 MAGNE SIUM note SEE NOTE Order ing Provi pippa: Mac Dominguez is DETENTION OFFICER Not Available [address] , [place], [address], 09/09/2023 09:49:40 09/09/19 24 09/09/2023 MAGNE SIUM magnesium 1.6 mg/dL 1.8-2. 4 low Not Available [address] , [place], [address], 09/09/2023 09:49:40 09/09/19 24 09/09/2023 CHANDLER HARDY performing lab SEE NOTE ML - [facility] [address] [facility] [address] Not Available [address] , [place], [address], 09/09/2023 09:49:40 01/21/20 24 01/21/2024 CREAT ININE W/GFR note SEE NOTE Order ing Provi pippa: Sawyer torres MD Not Available [address] , [place], [address], 01/21/2024 09:57:14 01/21/20 24 01/21/2024 CREAT ININE W/GFR creatinine 1.75 mg/dL 0.55-1 .02 high Not Available [address] , [place], [address], 01/21/2024 09:57:14 01/21/20 24 01/21/2024 CREAT ININE W/GFR GFR (estimated) 31 mL/mi n >60 low [IM KELLEE NT]: The 2020 CKD-E PI equat ion is now the recom emile d stand serafin. This versi on does not inclu de race, as do the 2008 and 2011 CKD-E PI creat inine and creat inine -cyst atin C equat ions. Pleas e note that the eGFR now repor joseph is gener ated by the new 2020 CKD-E PI equat ion, which decre ases the eGFR for black s by up to 10% and incre ases the eGFR for non-b lacks by up to 10% in tressa rison to the old equat ion. To tressa re a legac y eGFR to a curre nt value , a 2008 CKD-E PI calcu lator is easil y searc hable on the inter net. Calcu lated GFR: This calcu lated GFR is advoc ated by the Natio nal Kidne y Found ation to be used as an indic ator of Chron ic Kidne y Disea se (CKD) . 5 Stage s of Chron ic Kidne y Disea se. Stage 1 90 mL/mi n or more Healt hy kidne ys or Kidne y damag e with carole l or high GFR detai ls Stage 2 60 to 89 mL/mi n Kidne y damag e and mild decre ase in GFR detai ls Stage 3 30 to 59 mL/mi n Moder ate decre ase in GFR detai ls Stage 4 15 to 29 mL/mi n Sever e decre ase in GFR detai ls Stage 5 Less than 15 mL/mi n On dialy sis or Kidne y failu re Patie nt's clini rema statu s must be consi dered for the care of your patie nt. Not Available [address] , [place], [address], 01/21/2024 09:57:14 01/21/20 24 01/21/2024 CREAT ININE W/GFR performing lab SEE NOTE ML - [facility] R [address] [facility] [address] Not Available [address] , [place], [address], 01/21/2024 09:57:14 09/08/19 25 09/07/2024 FE W/TOT AL IRON MAYCOL NG CAP note SEE NOTE Order ing Provi pippa: Adelso oseguera DETENTION OFFICER Not Available [address] , [place], [address], 09/07/2024 18:10:59 09/08/19 25 09/07/2024 FE W/TOT AL IRON MAYCOL NG CAP iron 105 ug/dL 50-170 normal Not Available [address] , [place], [address], 09/07/2024 18:10:59 09/08/19 25 09/07/2024 FE W/TOT AL IRON MAYCOL NG CAP total iron binding capacity 262 ug/dL 260-44 5 normal Not Available [address] , [place], [address], 09/07/2024 18:10:59 09/08/19 25 09/07/2024 FE W/TOT AL IRON MAYCOL NG CAP iron saturation 40 % 20-50 normal Not Available [address] , [place], [address], 09/07/2024 18:10:59 09/08/19 25 09/07/2024 FE W/TOT AL IRON MAYCOL NG CAP performing lab SEE NOTE ML - [facility] [address] [facility] [address] Not Available [address] , [place], [address], 09/07/2024 18:10:59 09/08/19 25 09/07/2024 BASIC METAB OLIC PANEL note SEE NOTE Order ing Provi pippa: Adelso oseguera APRN Not Available [address] , [place], [address], 09/07/2024 18:47:29 09/08/19 25 09/07/2024 BASIC METAB OLIC PANEL sodium 141 mmol/ L 136-14 5 normal Not Available [address] , [place], [address], 09/07/2024 18:47:29 09/08/19 25 09/07/2024 BASIC METAB OLIC PANEL potassium 4.5 mmol/ L 3.5-5. 1 normal Not Available [address] , [place], [address], 09/07/2024 18:47:29 09/08/19 25 09/07/2024 BASIC METAB OLIC PANEL chloride 101 mmol/ L 98-107 normal Not Available [address] , [place], [address], 09/07/2024 18:47:29 09/08/19 25 09/07/2024 BASIC METAB OLIC PANEL carbon dioxide 28 mmol/ L 24-33 normal Not Available [address] , [place], [address], 09/07/2024 18:47:29 09/08/19 25 09/07/2024 BASIC METAB OLIC PANEL anion gap 16.5 mmol/ L 10-20 normal Not Available [address] , [place], [address], 09/07/2024 18:47:29 09/08/19 25 09/07/2024 BASIC METAB OLIC PANEL glucose 70 mg/dL 70-99 normal Not Available [address] , [place], [address], 09/07/2024 18:47:29 09/08/19 25 09/07/2024 BASIC METAB OLIC PANEL blood urea nitrogen 28 mg/dL 7-18 high Not Available [address] , [place], [address], 09/07/2024 18:47:29 09/08/19 25 09/07/2024 BASIC METAB OLIC PANEL creatinine 1.32 mg/dL 0.55-1 .02 high Not Available [address] , [place], [address], 09/07/2024 18:47:29 09/08/19 25 09/07/2024 BASIC METAB OLIC PANEL GFR (estimated) 43 mL/mi n >60 low [IM KELLEE NT]: The 2020 CKD-E PI equat ion is now the recom emile d stand serafin. This versi on does not inclu de race, as do the 2009 and 2011 CKD-E PI creat inine and creat inine -cyst atin C equat ions. Anna e note that the eGFR now repor joseph is gener ated by the new 2020 CKD-E PI equat ion, which decre ases the eGFR for black s by up to 10% and incre ases the eGFR for non-b lacks by up to 10% in tressa rison to the old equat ion. To tressa re a legac y eGFR to a curre nt value , a 2008 CKD-E PI calcu lator is easil y searc hable on the inter net. Calcu lated GFR: This calcu lated GFR is advoc ated by the Natio nal Kidne y Found ation to be used as an indic ator of Chron ic Kidne y Disea se (CKD) . 5 Stage s of Chron ic Kidne y Disea se. Stage 1 90 mL/mi n or more Healt hy kidne ys or Kidne y damag e with carole l or high GFR detai ls Stage 2 60 to 89 mL/mi n Kidne y damag e and mild decre ase in GFR detai ls Stage 3 30 to 59 mL/mi n Moder ate decre ase in GFR detai ls Stage 4 15 to 29 mL/mi n Sever e decre ase in GFR detai ls Stage 5 Less than 15 mL/mi n On dialy sis or Kidne y failu re Patie nt's clini rema statu s must be consi dered for the care of your patie nt. Not Available [address] , [place], [address], 09/07/2024 18:47:29 09/08/19 25 09/07/2024 BASIC METAB OLIC PANEL BUN/creatini ne ratio 21 12-20 high Not Available [address] [place], [address], 09/07/2024 18:47:29 09/08/19 25 09/07/2024 BASIC METAB OLIC PANEL calcium 9.8 mg/dL 8.5-10 .1 normal Not Available [address] [place], [address], 09/07/2024 18:47:29 09/08/19 25 09/07/2024 BASIC METAB OLIC PANEL osmolality serum calculated 284 mOsm/ kg 272-28 8 normal Not Available [address] , [place], [address], 09/07/2024 18:47:29 09/08/19 25 09/07/2024 BASIC METAB OLIC PANEL performing lab SEE NOTE ML - [facility] [address] [facility] [address] Not Available [address] , [place], [address], 09/07/2024 18:47:29 09/08/19 25 09/07/2024 ANDREW TIN note SEE NOTE Order ing Provi pippa: Adelso oseguera DETENTION OFFICER Not Available [address] , [place], [address], 09/07/2024 18:47:30 09/08/19 25 09/07/2024 ANDREW TIN ferritin 348 NG/mL 8-252 high Not Available [address] , [place], [address], 09/07/2024 18:47:30 09/08/19 25 09/07/2024 ANDREW TIN performing lab SEE NOTE ML - [facility] [address] [facility] [address] Not Available [address] , [place], [address], 09/07/2024 18:47:30 09/08/19 25 09/07/2024 CBC W/AUT O DIFFE JOAQUIN AL note SEE NOTE Order ing Provi pippa: Adelso oseguera DETENTION OFFICER Not Available [address] , [place], [address], 09/07/2024 18:51:41 09/08/19 25 09/07/2024 CBC W/AUT O DIFFE RENTI AL white blood cell 6.5 10e3/ uL 4.5-13 .0 normal Not Available [address] [place], [place], [address], 09/07/2024 18:51:41 09/08/19 25 09/07/2024 CBC W/AUT O DIFFE RENTI AL red blood cell 4.20 10e6/ uL 3.80-5 .10 normal Not Available [address] [place], [place], [address], 09/07/2024 18:51:41 09/08/19 25 09/07/2024 CBC W/AUT O DIFFE RENTI AL hemoglobin 12.7 g/dL 11.5-1 5.3 normal Not Available [address] [place], [place], [address], 09/07/2024 18:51:41 09/08/19 25 09/07/2024 CBC W/AUT O DIFFE RENTI AL hematocrit 39.7 % 34.0-4 6.0 normal Not Available [place] [address], [place], [address], 09/07/2024 18:51:41 09/08/19 25 09/07/2024 CBC W/AUT O DIFFE RENTI AL mean cell volume 95 fL 78.0-9 8.0 normal Not Available [address] [place], [place], [address], 09/07/2024 18:51:41 09/08/19 25 09/07/2024 CBC W/AUT O DIFFE RENTI AL mean cell HGB 30.2 pg 25.0-3 5.0 normal Not Available [address] [place], [place], [address], 09/07/2024 18:51:41 09/08/19 25 09/07/2024 CBC W/AUT O DIFFE RENTI AL mean cell HGB concentratio n 32.0 g/dL 31.0-3 6.0 normal Not Available [address] , [place], [address], 09/07/2024 18:51:41 09/08/19 25 09/07/2024 CBC W/AUT O DIFFE RENTI AL red cell distribution width 18.7 % 11.0-1 5.0 high Not Available [address] , [place], [address], 09/07/2024 18:51:41 09/08/19 25 09/07/2024 CBC W/AUT O DIFFE RENTI AL platelet count 220 10e3/ uL 150-40 0 normal Not Available [address] , [place], [address], 09/07/2024 18:51:41 09/08/19 25 09/07/2024 CBC W/AUT O DIFFE RENTI AL immature granulocyte % 0 0-1 normal Not Available [address] , [place], [address], 09/07/2024 18:51:41 09/08/19 25 09/07/2024 CBC W/AUT O DIFFE RENTI AL neutrophil % 58 % 35-75 normal Not Available [address] , [place], [address], 09/07/2024 18:51:41 09/08/19 25 09/07/2024 CBC W/AUT O DIFFE RENTI AL lymphocyte % 26 % 10-50 normal Not Available [address] , [place], [address], 09/07/2024 18:51:41 09/08/19 25 09/07/2024 CBC W/AUT O DIFFE RENTI AL monocyte % 7 % 0-15 normal Not Available [address] , [place], [address], 09/07/2024 18:51:41 09/08/19 25 09/07/2024 CBC W/AUT O DIFFE RENTI AL eosinophil % 8 % 0-5 high Not Available [address] [place], [place], [address], 09/07/2024 18:51:41 09/08/19 25 09/07/2024 CBC W/AUT O DIFFE RENTI AL basophil % 1 % 0-5 normal Not Available [address] , [place], [address], 09/07/2024 18:51:41 09/08/19 25 09/07/2024 CBC W/AUT O DIFFE RENTI AL immature granulocyte # 0.01 x1000 /uL 0-0.05 normal Not Available [address] , [place], [address], 09/07/2024 18:51:41 09/08/19 25 09/07/2024 CBC W/AUT O DIFFE RENTI AL neutrophil # 3.76 x1000 /uL 1.50-8 .00 normal Not Available [address] [place], [place], [address], 09/07/2024 18:51:41 09/08/19 25 09/07/2024 CBC W/AUT O DIFFE RENTI AL lymphocyte # 1.70 x1000 /uL 1.20-5 .20 normal Not Available [address] , [place], [address], 09/07/2024 18:51:41 09/08/19 25 09/07/2024 CBC W/AUT O DIFFE RENTI AL monocyte # 0.46 x1000 /uL 0.40-0 .90 normal Not Available [address] , [place], [address], 09/07/2024 18:51:41 09/08/19 25 09/07/2024 CBC W/AUT O DIFFE RENTI AL eosinophil # 0.55 x1000 /uL 0.00-0 .50 high Not Available [address] , [place], [address], 09/07/2024 18:51:41 09/08/19 25 09/07/2024 CBC W/AUT O DIFFE RENTI AL basophil # 0.03 x1000 /uL 0.00-0 .30 normal Not Available [address] , [place], [address], 09/07/2024 18:51:41 09/08/19 25 09/07/2024 CBC W/AUT O DIFFE RENTI AL NRBC automated 0.0 /100_ WBC Not Available [address] , [place], [address], 09/07/2024 18:51:41 09/08/19 25 09/07/2024 CBC W/AUT O DIFFE RENTI AL morphology comment SLIGHT ANISO normal Not Available [address] , [place], [address], 09/07/2024 18:51:41 09/08/19 25 09/07/2024 CBC W/AUT O DIFFE RENTI AL platelet morphology ADEQUA TE IN NUMBER Not Available [address] , [place], [address], 09/07/2024 18:51:41 09/08/19 25 09/07/2024 CBC W/AUT O DIFFE RENTI AL performing lab SEE NOTE - [facility] R [address] [facility] [address] Not Available [address] [address] , [place], [address], 09/07/2024 18:51:41 09/08/19 25 09/07/2024 VITAM IN B12 FOLAT E note SEE NOTE Order ing Provi pippa: Adelso oseguera APRN Not Available [address] [place], [address], 09/09/2024 08:13:39 09/08/19 25 09/07/2024 VITAM IN B12 FOLAT E vitamin B12 412 pg/mL 232-12 45 Not Available [address] [place], [address], 09/09/2024 08:13:39 09/08/19 25 09/07/2024 VITAM IN B12 FOLAT E folic acid 4.8 NG/mL >3.0 . A serum folat e loida ntrat ion of less than 3.1 ng/mL is consi dered to repre sent clini rema defic iency . Perfo rmed At: [facility], [facility] [address], [place], [address] 5[address] Rosalio porras, PhD, Phone : [phone] Not Available [address] , [place], [address], 09/09/2024 08:13:39 09/08/19 25 09/07/2024 VITAM IN B12 FOLAT E performing lab SEE NOTE LC2 - [facility] CLIEN T# [id number] [id number] [place] [address] Not Available [address] [place], [address], 09/09/2024 08:13:39 09/02/19 24 09/02/2023 elect yeni shaw am No observ ation record ed. SOY Tidwlel [address] [place], [place], [address], 09/02/2023 13:58:56 09/02/19 24 09/02/2023 elect yeni shaw am No observ ation record ed. fcooke Not Available 2023 14:02:37 09/09/19 24 09/09/2023 - CT angio ABD W wo runof f [facility] Name: AMANUEL REYNAGARingCaptchaa l [employer] [address] Phys: E[place] [address] : 1949 Age: 73 Sex: F Acct: [id number] Loc: G.CT PHONE #: [phone] Exam Date: 2023 Status : REG CLI FAX #: [phone] Rad# [id number] Unit# [id number] Admit Date: 2023 EXAMS: CPT CODE: [id number] 807 CT ANGIO ABD W WO RUNOFF 69[address] HISTOR Y: Left lower extrem ity swelli ng for the last year. The left toes and heel are purple for the last 3 months . COMPAR WILNER: none Techni que: Multis lice axial thin cut contra st enhanc ed imagin g was perfor med from the level of the proxim al abdomi nal aorta throug h the level of the ankles /feet. 2-D recons tructi ons were perfor med in the ruiz l plane. 3-D recons tructi ons of the aorta and the lower extrem ity runoff s were perfor med and evalua joseph on a [employer] te workst ation. Automa joseph exposu re contro l was employ ed for dose reduct ion. 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 Hyster ectomy . No adnexa l lesion s. Modera te genera lized coloni c fecal loadin g sugges ting consti pation . Chroni c compre ssion deform ity upper endpla te of L1. No signif icant retrop ulsion . DDD L4-5 and L5-S1 withou t gross spinal stenos is. No aggres sive osseou s lesion s. 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 Distal branch es will enhanc e. Mild nonflo w limiti ng stenos is origin right renal artery . Left renal artery widely patent . Mild diffus e athero matous diseas e of the aorta withou t eviden ce of aneury sm or stenos is. Right lower extrem ity runoff no eviden ce of flow limiti ng stenos is. There is three- vessel runoff to the right foot. Left lower extrem ity runoff : Mild plaque deposi tion withou t flow limiti ng stenos is. The distal left superf icial femora l artery portio ns of the poplit eal artery are partia lly obscur ed by streak artifa ct from the total left knee arthro plasty but there is no gross eviden ce of stenos is. There is three- vessel runoff to the left foot with good visual izatio n of the twisting frame fixer ior tibial and anteri or tibial arteri es throug h the level of the midfoo t. There is asymme tric diffus e superf icial edema in the left lower extrem ity below the level of the knee. PAGE 1 Signed Report (MANJIT NUED) [facility] Name: AMANUEL REYNAGA [facility] [employer] Phys: [place] [address] : 1949 Age: 73 Sex: F Acct: [id number] Loc: G.CT PHONE #: Exam Date: 2023 Status : REG CLI FAX #: Rad# [id number] Unit# [id number] Admit Date: 2023 EXAMS: CPT CODE: [id number] 807 CT ANGIO ABD W WO RUNOFF 75957 IMPRES MELODY: 1. 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 2. Modera te athero matous diseas e abdomi nal aorta withou t aneury sm or flow limiti ng stenos is. 3. Normal right lower extrem ity runoff . 4. No eviden ce of flow-l imitin g stenos is in the runoff of the left lower extrem ity with 3 vessel runoff to the ankle and good visual izatio n of the dorsal is pedis and twisting frame fixer ior tibial arteri es to the level of the midfoo t. Commun icatio n: Per this writte n report . NOTE: Any incide ntally noted liver lesion s equal to or less than 5 mm, cystic lesion s in the kidney s less than 1 cm, and/or adrena l lesion s equal to or less than 1 cm, genera lly are consid ered highly likely to be benign and no additi onal evalua tion is recomm ended, unless specif ically mentio megan in the impres melody. *Manag ement/ follow -up of any incid ental pulmo nary nodule s will be based on the Fleisc hner Societ y criter ia. This report is genera joseph using voice recogn ition comput er softwa re. Inadve rtent errors may have occurr ed while dictat ing report . Common sense approa ch is apprec iated and do not hesita te to call for clarif icatio n when necess eladio. Electr onical ly Signed by Carmen Torres on 2023 at 1209 Report ed and signed by: MAIA Torres M.D. PAGE 2 Signed Report (MANJIT NUED) [facility] Name: AMANUEL REYNAGA [facility] [employer] Phys: Efrem Page [place] [facility] [place] [address] : 1949 Age: 73 Sex: F Acct: [id number] Loc: G.CT PHONE #: [phone] Exam Date: 2023 Status : REG CLI FAX #: Rad# [id number] Unit# [id number] Admit Date: 2023 EXAMS: CPT CODE: [id number] 807 CT ANGIO ABD W WO RUNOFF [address] CC: Diogenes Dawn APRN; Betsey abernathy APRN Dictat ed Date/T jose juan: 2023 (1209) Techno logist : PHILIP POLLIT T Transc ribed Date/T jose juan: 2023 (1209) Transc riptio nist: DR.HAR SHEELA lordic Signat ure Date/T jose juan: 2023 (1209) Printe d Date/T jose juan: 2023 (1213) BATCH NO: N/A PAGE 3 Signed Report CC'ed Logic: Orderi ng Provid er: SHANNAN CANTOR LL Attend ing Provid er: SHANNAN CANTOR LL Referr ing Provid er: SHANNAN GRANT Consul ting Provid er: NEREYDA [facility] [address] , [place], [address], 09/30/2023 12:37:12 09/22/19 24 09/22/2023 elect rocmauro diogr am No observ ation record ed. fcooke Not Available 2023 08:13:54 01/21/20 24 01/21/2024 CT, chest , w/o contr ast [facility] Name: AMANUEL REYNAGA [address] [place] [address] Drive Phys: Betty LIZ, Sawyer [place] [id number] : 1949 Age: 73 Sex: F Acct: [id number] Loc: G.LAB PHONE #: Exam Date: 2023 Status : REG CLI FAX #: Rad# [id number] Unit# [id number] Admit Date: 2023 EXAMS: CPT CODE: [id number] 856 CT CHEST W/O CONTRA ST [address] CT CHEST WITHOU T CONTRA ST, 024: CLINIC AL HISTOR Y: Worsen ing shortn ess of breath for 2 years. Histor y of hypert ension and prior tobacc o use COMPAR WILNER: [None. ] TECHNI QUE: Multip le axial images throug h the chest were obtain ed withou t the use of intrav enous contra st. This data was used to perfor m ruiz l recons tructi ons. [employer] Auto m[employer] automa joseph exposu re contro l was utiliz ed for radiat ion dose reduct ion. FINDIN GS: The heart is normal in size with mild to modera te ruiz ry artery calcif icatio ns. The thorac ic aorta is normal in calibe r. There is no pathol ogic intrat horaci c lympha denopa thy. The thyroi d gland is unrema rkable . There is mild centri lobula r emphys quin. There is a 3 mm right upper lobe nodule on image 46, a 3 mm right lower lobe nodule on image 64, a 3 mm right lower lobe nodule on image 68, a 3 mm right lower lobe nodule on image 76, and a 2 mm right lower lobe nodule on image 77. There is no left lung nodule . There is minor depend ent atelec tasis within the lower lobes. There is no airspa ce diseas e or pleura l fluid. The airway s are patent The gallbl adder is surgic ally absent . There is a 5.3 cm cyst projec ting from the midpol e of the right kidney . The visual ized upper abdomi nal struct ures are otherw ise unrema rkable . The patien t is osteop enic with a modera te chroni c compre ssion fractu re of L1. No suspic ious osseou s lesion is identi fied IMPRES MELODY: 1. Mild emphys quin withou t eviden ce of acute intrat horaci c proces s. 2. Severa l 3 mm right lung nodule s. These are most compat ible with noncal cified granul omatou s diseas e and no follow -up is necess eladoi *Recom mendat ions for follow up/man agemen t of pulmon eladio nodule s will be based on the Fleisc hner Societ y criter ia NOTE: Any incide ntally noted liver lesion s equal to or less than 5 mm, cystic lesion s in the kidney s less than 1 cm, and/or adrena l lesion s equal to or less than 1 cm, genera lly are consid ered highly likely to be benign and no additi onal evalua tion is recomm ended, PAGE 1 Signed Report (MANJIT NUED) [facility] Name: AMANUEL REYNAGA [facility] Phys: Betty LIZ, [place] [address] : 1949 Age: 73 Sex: F Acct: [id number] Loc: ISMA PHONE #: Exam Date: 2023 Status : REG CLI FAX #: Rad# [id number] Unit# [id number] Admit Date: 2023 EXAMS: CPT CODE: [id number] 856 CT CHEST W/[place] [address] unless specif sheritaharmanbryant fisher megan in the impres melody. Electr onical ly Signed by ANSHUL HAHN MD on 2023 at 1451 Report ed and signed by: ANSHUL AHHN MD CC: Diogenes Dawn DETENTION OFFICER; Sawyer Hernández MD Dictat ed Date/T jose juan: 2023 (1451) Techno logist : GARY BOOGIE Y Transc ribed Date/T jose juan: 2023 (1451) Transc riptio nist: DR.HAG JOHNATHAN Newman onic Signat ure Date/T jose juan: 2023 (1451) Printe d Date/T jose juan: 2023 (1454) BATCH NO: N/A PAGE 2 Signed Report CC'ed Logic: Orderi ng Provid er: BETTY PETERS Attend ing Provid er: BETTY PETERS Referr ing Provid er: BETTY PETERS Consul ting Provid er: NEREYDA Hui [email or web address] [address] , [place], [address], 04/21/2024 17:38:02 04/21/20 24 elect rocar diogr am No observ ation record ed. [email or web address] Mv [address] [place], [place], [address], 04/21/2024 13:20:26 04/21/20 24 04/21/2024 elect yeni shaw am No observ ation record ed. SOY [place] [id number] [facility] [address] [place], [place], [address], 04/21/2024 15:54:20 Result Notes Documentation Provider Name and Address Organization Details Recorded Time Ct, Chest, W/o Contrast : [facility] Ce Name: AMANUEL REYNAGA [address] [place] [address] Phys: Betty LIZ, [place] [address] : 1950 Age: 73 Sex: F Acct: [id number] Loc: G.LAB PHONE #: Exam Date: 01/21/2024 Status: REG CLI FAX #: Rad# [id number] Unit# [id number] Admit Date: 01/21/2024 EXAMS: CPT CODE: [id number] CT CHEST W/O CONTRAST [address] CT CHEST WITHOUT CONTRAST, 01/21/2024: CLINICAL HISTORY: Worsening shortness of breath for 2 years. History of hypertension and prior tobacco use COMPARISON: [None.] TECHNIQUE: Multiple axial images through the chest were obtained without the use of intravenous contrast. This data was used to perform coronal reconstructions. [employer] Auto mA automated exposure control was utilized for radiation dose reduction. FINDINGS: The heart is normal in size with mild to moderate coronary artery calcifications. The thoracic aorta is normal in caliber. There is no pathologic intrathoracic lymphadenopathy. The thyroid gland is unremarkable. There is mild centrilobular emphysema. There is a 3 mm right upper lobe nodule on image 46, a 3 mm right lower lobe nodule on image 64, a 3 mm right lower lobe nodule on image 68, a 3 mm right lower lobe nodule on image 76, and a 2 mm right lower lobe nodule on image 77. There is no left lung nodule. There is minor dependent atelectasis within the lower lobes. There is no airspace disease or pleural fluid. The airways are patent The gallbladder is surgically absent. There is a 5.3 cm cyst projecting from the midpole of the right kidney. The visualized upper abdominal structures are otherwise unremarkable. The patient is osteopenic with a moderate chronic compression fracture of L1. No suspicious osseous lesion is identified IMPRESSION: 1. Mild emphysema without evidence of acute intrathoracic process. 2. Several 3 mm right lung nodules. These are most compatible with noncalcified granulomatous disease and no follow-up is necessary *Recommendations for follow up/management of pulmonary nodules will be based on the Fleischner Society criteria NOTE: Any incidentally noted liver lesions equal to or less than 5 mm, cystic lesions in the kidneys less than 1 cm, and/or adrenal lesions equal to or less than 1 cm, generally are considered highly likely to be benign and no additional evaluation is recommended, PAGE 1 Signed Report (CONTINUED) [facility] Name: AMANUEL REYNAGA [address] [facility] Phys: Betty LIZ, [place] [address] : 1950 Age: 73 Sex: F Acct: [id number] Loc: Carol.LAB PHONE #: Exam Date: 01/21/2024 Status: REG CLI FAX #: Rad# [id number] Unit# [id number] Admit Date: 01/21/2024 EXAMS: CPT CODE: [id number] CT CHEST W/O CONTRAST 89671 unless specifically mentioned in the impression. at 1451 Reported and signed by: PETE HERR MD CC: Chris Dawn APRN; Saw[place] Hernández MD Dictated Date/Time: 01/21/2024 (145) Technologist: GARY TAMAYO; JYOTI GIBBS Transcribed Date/Time: 01/21/2024 (145) Assistant Production Editor: Electronic Signature Date/Time: 01/21/2024 (145) Printed Date/Time: 01/21/2024 (145) BATCH NO: N/A PAGE 2 Signed Report CC'ed Logic: Ordering Provider: BETTY PETERS Attending Provider: BETTY PETERS Referring Provider: BETTY PETERS Consulting Provider: NEREYDA DE LA CRUZ NP, [address] [facility],[address], [place], [address] [address]/17/2024 17:38:02 Problems Name Problem SNOMED Code Status Onset Date Resolution Date Notes Provider Name and Address Organization Details Recorded Time Diabetes mellitus 41086446 Active Arely Nito null, [place] [facility] [place] & [place] 3 14:25:42 Insomnia 362420644 Active 2021 Arely N[place] [facility] [place] 3 14:25:41 Edema 827933548 Active 2021 Arely Nito [place] 3 14:25:41 Depressive disorder 84336090 Active 2021 Arely [place] 3 14:25:41 Hypertensive disorder 86216804 Active 2021 Arely N[place] 3 14:25:41 Neuropathy 097930596 Active 2021 Arely [place] 3 14:25:41 Type 2 diabetes mellitus 05366280 Active 2021 Arely N[place] 3 14:25:41 Hyperlipidemia 59117162 Active 2021 Arely N[place] 3 14:25:42 Neuropathy due to diabetes mellitus 281296972 Active 2021 Arely N[place] 3 14:25:41 Persistent insomnia 092295867 Active 2021 Arely Nito null[place] 3 14:25:41 Near syncope 520825563 Active 2022 Sawyer Hernández MD [address] [place] [address],[address], [address] [facility] [place] 3 09:42:41 Tight chest 23173981 Active 2022 Sawyer Hernández MD [facility] [address], [place], [address], [place] [facility] [place] 3 09:42:52 Dyspnea on exertion 74593947 Active 2022 Sawyer Hernández MD [facility] [address], [place], [address], [place] [facility] [place] [facility] & [place] 3 09:42:58 Essential hypertension 19812674 Active 2022 Sawyer Hernández MD [facility],[address], [place], [address], [place] [facility] [place] 3 14:23:04 Type 2 diabetes mellitus without complication 890441983 Active 2022 Sawyer Hernández MD [facility],[address], [place], [address], [place] [facility] [place] [facility] & [place] 3 14:23:11 Electrocardiog jose abnormal 138240374 Active 2022 Sawyer Hernández MD [facility],[address], [place], [address], [place] [facility] [place] [facility] & [place] 3 14:23:23 Diastolic dysfunction 2214322 Active 2022 Sawyer Hernández MD [facility],[address], [place], [address], [place] [facility] [place] [facility] & [place] 3 12:31:57 Bilateral carotid artery occlusion 864276871 Active 2022 Sawyer Hernández MD [facility],[address], [place], [address], [place] [facility] - [facility] & [place] 3 12:32:03 Peripheral venous insufficiency 19993756 Active 2023 Sawyer Hernández MD [facility],[address], [place], [address], [place] [facility] [place] & [place] 4 14:00:58 Iron deficiency anemia 52889453 Active 2023 MARGO MONTAGUE NP [address] [facility],[address], [place], [address], [place] [facility] - [place] & [place] 4 15:18:01 Fatigue 57356219 Active 2024 MARGO MONTAGUE NP [address] [facility],[address], [place], [address], [place] [facility] [place] & [place] 5 12:41:10 Problem Notes None recorded. Procedures Surgical History Date Name Laterality Status Provider Name and Address Organization Details Recorded Time operative procedure on knee completed Arely Nito [place] [facility] [place] & [place] 04/07/2023 14:53:34 procedure on shoulder completed Arely Nito [place] [facility] & [place] 04/07/2023 14:53:49 Hysterectomy completed Arely Nito [place] [facility] & [place] 04/07/2023 14:53:58 cholecystectomy completed Kell Garcia [place] [facility] [place] & [place] 06/22/2024 11:54:43 Imaging Results None recorded. Procedure Notes None recorded. Medical Equipment None Reported. Allergies Allergen ID Allergen Name Allergen Category Reaction Reaction Severity Criticality Documentation Date Start Date Code Code System Note Provider Name and Address Organization Details Recorded Time 52329 Product containin g penicilli n (product) medicatio n rash Not available Not available 04/07/2023 24780 8001 SNOMED Arely Nito null, [place] [facility] - [place] & [place] 3 14:25:29 98268 Product containin g penicilli n (product) medicatio n Not available Not available Not available 04/07/2023 44238 8001 SNOMED Arely Nito null, [place] [facility] [place] & [place] 14:27:04 22718 Substance with sulfonami de structure and antibacte rial mechanism of action (substanc e) medicatio n anaphylax is Not available Not available 04/07/2023 85492 8003 SNOMED NORY Rubin [facility] & [place] 3 14:25:29 [address]9951 Substance with sulfonami de structure and antibacte rial mechanism of action (substanc e) medicatio n Not available Not available Not available 04/07/2023 03150 8003 SNOMED NORY Rubin [facility] & [place] 3 14:27:08 11433 neomycin medicatio n Not available Not available Not available 04/07/2023 7299 RxNorm NORY Rubin [facility] & [place] 3 14:25:29 Medications Name Sig Start Date Stop Date Status Note LastModified by Organization Details LastModified Time pioglitazon e 15 mg tablet TAKE ONE (1) TABLET EVERY DAY BY ORAL ROUTE FOR 90 DAYS. 12/29 completed Not Available Not Available Not Available atorvastati n 40 mg tablet TAKE ONE (1) TABLET EVERY DAY BY ORAL ROUTE IN THE EVENING FOR 90 DAYS. active Not Available Not Available No t Available metformin 500 mg tablet TAKE TWO (2) TABLETS TWICE A DAY BY ORAL ROUTE. active Not Available Not Available No t Available clindamycin HCl 300 mg capsule TAKE ONE (1) CAPSULE BY MOUTH THREE TIMES A DAY 09/02 completed Not Available Not Available Not Available azithromyci n 250 mg tablet TAKE 2 TABLETS TODAY, THEN TAKE 1 TABLET EVERY DAY FOR 4 DAYS 09/07 completed Not Available Not Available Not Available amitriptyli ne 75 mg tablet TAKE ONE (1) TABLET EVERY DAY BY ORAL ROUTE. active Not Available Not Available No t Available tizanidine 4 mg tablet TAKE ONE (1) TABLET BY MOUTH EVERY DAY NEEDED active Not Available Not Available No t Available hydrocodone 5 mg-acetamin ophen 325 mg tablet TAKE ONE (1) TABLET TWICE A DAY BY ORAL ROUTE FOR THREE (3) DAYS. active Not Available Not Available No t Available ondansetron HCl 4 mg tablet TAKE ONE (1) TABLET EVERY 8 HOURS BY ORAL ROUTE NEEDED FOR NAUSEA 06/19 completed Not Available Not Available Not Available prednisone 20 mg tablet TAKE ONE (1) TABLET TWICE A DAY BY ORAL ROUTE FOR FIVE (5) DAYS. 04/11 completed Not Available Not Available Not Available betamethaso ne, augmented 0.05 % topical cream APPLY A THIN LAYER TO THE AFFECTED AREA(S) BY TOPICAL ROUTE ONCE DAILY 09/07 completed Not Available Not Available Not Available clindamycin HCl 150 mg capsule TAKE ONE (1) CAPSULE EVERY SIX (6) HOURS DAILY. 04/21 completed Not Available Not Available Not Available triamcinolo ne acetonide 0.1 % topical cream APPLY A THIN LAYER TO THE AFFECTED AREA(S) BY TOPICAL ROUTE TWO (2) TIMES PER DAY 09/07 completed Not Available Not Available Not Available magnesium oxide 400 mg (241.3 mg magnesium) tablet TAKE ONE (1) TABLET EVERY DAY BY ORAL ROUTE. 06/22 completed Not Available Not Available Not Available gabapentin 800 mg tablet TAKE 1 TABLET BY MOUTH TWICE DAILY 08/11 completed Not Available Not Available Not Available cephalexin 500 mg capsule TAKE ONE (1) CAPSULE TWICE A DAY BY ORAL ROUTE FOR 10 DAYS. 09/07 completed Not Available Not Available Not Available losartan 25 mg tablet TAKE (1/2) TABLET BY MOUTH EVERY DAY active Not Available Not Available No t Available betamethaso ne dipropionat e 0.05 % topical cream APPLY A THIN LAYER TO THE AFFECTED AREA(S) BY TOPICAL ROUTE ONCE DAILY 06/22 completed Not Available Not Available Not Available omeprazole 20 mg capsule,del ayed release TAKE ONE (1) CAPSULE EVERY DAY BY ORAL ROUTE. active Not Available Not Available No t Available zolpidem 5 mg tablet TAKE ONE (1) TABLET BY MOUTH EVERY NIGHT AT BEDTIME active Not Available Not Available No t Available furosemide 20 mg tablet TAKE ONE (1) TABLET EVERY DAY BY ORAL ROUTE. active Not Available Not Available No t Available gabapentin 100 mg capsule Take 4 capsules 3 times a day by oral route. 04/11 completed Not Available Not Available Not Available metoprolol succinate ER 25 mg tablet,exte nded release 24 hr TAKE ONE (1) TABLET EVERY DAY BY ORAL ROUTE. active Not Available Not Available No t Available albuterol sulfate HFA 90 mcg/actuati on aerosol inhaler INHALE ONE (1) PUFF EVERY FOUR (4) HOURS BY INHALATIO N ROUTE NEEDED. active Not Available Not Available No t Available Adult Aspirin EC Low Strength 81 mg tablet,chaz yed release Take 1 tablet every day by oral route. 06/19 completed Not Available Not Available Not Available duloxetine 60 mg capsule,del ayed release TAKE ONE (1) CAPSULE EVERY DAY BY ORAL ROUTE FOR 90 DAYS. active Not Available Not Available No t Available chlorhexidi ne gluconate 0.12 % mouthwash RINSE MOUTH WITH 15ML (1 CAPFUL) FOR 30 SECONDS IN THE MORNING AND IN THE EVENING AFTER TOOTHBRUS SUNSHINE. EXPECTORA TE AFTER RINSING, DO NOT SWALLOW active Not Available Not Available No t Available Lamisil 04/11 completed Not Available Not Available Not Available ondansetron HCl (PF) 4 mg/2 mL injection solution 4mg IM x 1 now 04/11 completed Not Available Not Available Not Available FreeStyle Lite Strips 1 daily 2021 active Not Available Not Available Not Avai lable FeroSul 325 mg (65 mg iron) tablet TAKE ONE (1) TABLET EVERY DAY BY ORAL ROUTE active Not Available Not Available No t Available Feraheme 510 mg/17 mL (30 mg/mL) intravenous solution Infuse 510 mg - Administe r 2 doses given 3-7 days apart 2023 active Not Available Not Available Not Avai lable Farxiga 10 mg tablet TAKE ONE (1) TABLET BY MOUTH EVERY DAY active Not Available Not Available No t Available magnesium 400 mg (as magnesium oxide) tablet Take 1 tablet every day by oral route. 12/29 completed Not Available Not Available Not Available albuterol sulf 90 mcg/actuati on breath activated powder inhaler,sen sor Inhale 1 puff every 4 hours by inhalatio n route as needed. 04/15 completed Not Available Not Available Not Available aspirin 81 mg capsule Take 1 capsule every day by oral route. 04/07 completed Not Available Not Available Not Available Vitals Date Recorded Body height Body mass index (BMI) Body weight Body temperature Oxygen saturation Oxygen saturation in Arterial blood by Pulse oximetry Heart rate Respiratory rate Systolic And Diastolic Provider Name and Address Organization Details Last Updated DateTime 5 160.02 cm 21.4 kg/m2 33761.6 8 g 97.3 [degF] 96 % 96 % 91 /min 16 /min 113/56 mm[Hg] Renata Scherer [place] [facility] [place] 5 13:23:57 Date Recorded Body height Body mass index (BMI) Body weight Oxygen saturation Oxygen saturation in Arterial blood by Pulse oximetry Heart rate Systolic And Diastolic Provider Name and Address Organization Details Last Updated DateTime 4 160.02 cm 29.1 kg/m2 81353.1 5 g 97 % 97 % 75 /min 120/72 mm[Hg] Rebekah torres [place] [facility] [facility] & [place] 4 09:53:54 Date Recorded Body height Oxygen saturation Oxygen saturation in Arterial blood by Pulse oximetry Heart rate Systolic And Diastolic Provider Name and Address Organization Details Last Updated DateTime 4 160.02 cm 97 % 97 % 70 /min 130/70 mm[Hg] Katrina Israel [place] [facility] [facility] [place] 4 08:10:34 Date Recorded Body height Body mass index (BMI) Body weight Oxygen saturation Oxygen saturation in Arterial blood by Pulse oximetry Heart rate Systolic And Diastolic Provider Name and Address Organization Details Last Updated DateTime 4 160.02 cm 24.8 kg/m2 91399.9 3 g 100 % 100 % 83 /min 122/64 mm[Hg] Rebekah Giuseppe torres [place] [facility] & [place] 4 13:19:24 Date Recorded Body mass index (BMI) Body weight Body temperature Oxygen saturation Oxygen saturation in Arterial blood by Pulse oximetry Heart rate Respiratory rate Systolic And Diastolic Provider Name and Address Organization Details Last Updated DateTime 4 24.4 kg/m2 28956.7 5 g 98.4 [degF] 99 % 99 % 71 /min 14 /min 111/57 mm[Hg] Kell Garcia [place] [facility] [place] 4 11:55:12 Date Recorded Body height Provider Name an d Address Organization Details Last Updated DateTime 06/22/2024 160.02 cm Love Lara [place] [facility] & [place] 06/22/2024 11:00:37 Social History Question Answer Notes LastModified by Organizat ion Details LastModified Time Tobacco Smoking Status Former Smoker Arely Beauchamp [facility], [place] - [place] - [place] & [place] 04/07/2023 14:51:57 Are You Blind Or Do You Have Difficulty Seeing? No Information not available 04/07/2023 What Is Your Level Of Caffeine Consumption? Occasional Information not available 04/07/2023 Are You Deaf Or Do You Have Serious Difficulty Hearing? No Information not available 04/07/2023 What Type Of Diet Are You Following? REGULAR Information not available 04/07/2023 When Did You Quit Smoking? 18+yearssincela stcigarette Information not available 06/22/2024 What Was The Date Of Your Most Recent Tobacco Screening? 09/29/2023 [email or web address] Information not available 09/30/2023 Do You Have Smoke And Carbon Monoxide Detectors In Your Home? Yes Information not available 04/07/2023 At What Age Did You Start Smoking Tobacco? 17 Information not available 04/07/2023 Are You Passively Exposed To Smoke? No [email or web address] Information not available 09/30/2023 How Much Tobacco Do You Smoke? 1 PPD Information not available 06/22/2024 Has Tobacco Cessation Counseling Been Provided? No Information not available 04/07/2023 Do You Have Difficulty Walking Or Climbing Stairs? No Information not available 04/07/2023 Sex: Unknown Functional Status Question Answer Note LastModified by Organizat ion Details LastModified Time Do you use any illicit or recreational drugs? No Information not available 04/07/2023 Do you or have you ever used any other forms of tobacco or nicotine? No Information not available 04/07/2023 What is your level of alcohol consumption? None Information not available 04/07/2023 Do you have transportation difficulties? No Information not available 04/07/2023 Are you able to walk independently without assistance or assistive devices? YESWOREST Information not available 04/07/2023 Do you have difficulty doing errands alone? No Information not available 04/07/2023 Are you able to care for yourself independently? Yes Information not available 04/07/2023 Do you have difficulty dressing, bathing, grooming, or toileting? No Information not available 04/07/2023 Do you or have you ever used e-cigarettes or vape? Never used electronic cigarettes Information not available 04/07/2023 What is your exercise level? None Information not available 04/07/2023 Mental Status Question Answer Note LastModified by Organization D etails LastModified Time Do you have difficulty concentrating, remembering or making decisions? No Information no t available 04/07/2023 Family History Relationship Description Onset Age of this Age Resolved Age Notes LastModified by Organization Details LastModified Time Sister Malignant neoplasm of ovary Half Sister larry Not available 06/22/2024 11:53:36 Sister Neoplasm of brain fcooke Not available 2022 09:26:50 Mother Aneurysm Not available 04/07/2023 14:50:02 Notes:not sure of medical hi story- pt adopted Medical History Condition Response Diabetes Y Hyperlipidemia Y Chest Pain Y Hypertension Y Shortness of Breath Y Gynecological HistoryNo gynecological history recorded. Obstetrics History GPAL:G 0 P 0 0 0 0 Immunizations Vaccine Type Date Status Note Provider Nam e and Address Organization Details Recorded Time Influenza, high-dose, quadrivalent, PF 04/11/2022 completed Arely Beauchamp null, [place] [facility] [facility] & [place] 04/07/2023 14:25:49 COVID-19, mRNA, LNP-S, PF, 100 mcg/0.5mL dose or 50 mcg/0.25mL dose 10/02/2020 completed Arely Nito null, [place] [facility] & [place] 04/07/2023 14:25:49 COVID-19, mRNA, LNP-S, PF, 100 mcg/0.5mL dose or 50 mcg/0.25mL dose 10/30/2020 completed Arely Nito null[place] [facility] & [place] 04/07/2023 14:25:49 COVID-19, mRNA, LNP-S, PF, 100 mcg/0.5mL dose or 50 mcg/0.25mL dose 05/28/2021 completed Arely Nito null[place] & [place] 04/07/2023 14:25:49 COVID-19, mRNA, LNP-S, PF, 30 mcg/0.3 mL dose, trini-sucrose 10/10/2021 completed Arely Nito null[place] & [place] 04/07/2023 14:25:49 COVID-19, mRNA, LNP-S, bivalent, PF, 50 mcg/0.5 mL or 25mcg/0.25 mL dose 03/22/2022 completed Arely Nito [place] & [place] 04/07/2023 14:25:49 Tdap 11/13/2021 completed Arely Nito null, [place] & [place] 04/07/2023 14:25:49 Past Encounters Encounter ID Performer Location Encounter Start Date Encounter Closed Date Diagnosis/Indication Diagnosis SNOMED-CT Code Diagnosis ICD10 Code Diagnosis IMO Codes Diagnosis Note [id number] Sawyer Hernández MD [address] [place] [id number] 6 04/15/2023 08:50:44 04/15/2023 09:44:08 Hypertensive disorder 98160437 I10 Near syncope 406010995 R 55 Tight chest 06883636 R07 .89 Dyspnea on exertion 6084 5006 R06.09 Edema 263235830 R60.9 Essential hypertension 58437110 I10 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 complication 520856316 E11.9 Electrocar diogram abnormal 027222565 R94.31 [id number] Sawyer Hernández MD [address] [place] [id number] 6 05/14/2023 11:01:30 05/14/2023 11:18:23 Hypertensive disorder 51123817 I10 Dyspnea on exertion 6084 5006 R06.09 Essential hypertension 87565705 I10 Diastolic dysfunction 35 65820 I51.9 Bilateral carotid artery occlusion 369842570 I65.23 Hyperlipidemia 09893286 E78.5 Near syncope 058027515 R 55 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 complication 810743492 E11.9 [id number] Sawyer Hernández MD [address] [place] [id number] 6 06/19/2023 09:31:28 06/19/2023 09:47:09 Edema 329668800 R60.9 Electrocar diogram abnormal 266308074 R94.31 Essential hypertension 96560548 I10 Hyperlipidemia 62781386 E78.5 Diastolic dysfunction 35 22271 I51.9 Bilateral carotid artery occlusion 717105245 I65.23 [id number] LESTER DE LA CRUZ NP, S [address] [place] [id number] 6 09/02/2023 13:34:03 09/02/2023 14:20:14 Essential hypertension 61339452 I10 Abnormal foot pulse 6943 7003 R09.89 Peripheral vascular disease 130570118 I73.9 Edema 225509244 R60.9 Electrocar diogram abnormal 656175759 R94.31 Hyperlipidemia 74601809 E78.5 Diastolic dysfunction 35 17733 I51.9 Bilateral carotid artery occlusion 316010177 I65.23 [id number] LESTER DE LA CRUZ NP, S [address] [place] [id number] 6 09/30/2023 09:22:53 09/30/2023 10:23:43 Essential hypertension 95362767 I10 Edema 323069467 R60.9 Electrocar diogram abnormal 194184189 R94.31 Hyperlipidemia 23762069 E78.5 Diastolic dysfunction 35 64959 I51.9 Bilateral carotid artery occlusion 308519856 I65.23 Peripheral venous insufficiency 33007999 I87.2 [id number] Sawyer Hernández MD [address] [place] [id number] 6 12/30/2023 08:01:10 12/30/2023 08:54:04 Dyspnea on exertion 85347754 R06.09 Essential hypertension 72784522 I10 Peripheral venous insufficiency 04613516 I87.2 Edema 318330588 R60.9 Electrocar diogram abnormal 227370057 R94.31 Hyperlipidemia 90950924 E78.5 Diastolic dysfunction 35 60136 I51.9 Bilateral carotid artery occlusion 357661417 I65.23 [id number] LESTER DE LA CRUZ NP, S [address] [place] [address] 04/21/2024 12:59:20 04/21/2024 13:54:23 Hypertensive disorder 08240732 I10 Essential hypertension 76697184 I10 Peripheral venous insufficiency 70252814 I87.2 Edema 812545057 R60.9 Hyperlipidemia 04092280 E78.5 Diastolic dysfunction 35 56839 I51.9 Bilateral carotid artery occlusion 512068327 I65.23 [id number] DESIREE GARCIA [facility] [address] [place] [address] [place] [id number] 06/22/2024 10:51:52 06/22/2024 12:30:20 Iron deficiency anemia 27030399 D50.9 Patient presents June 22, 2024 for evaluation of iron deficiency anemia. Patient noted to have significan t iron deficiency with anemia and has trialed oral supplement s with little to no improvemen t. Recommend patient transition to IV iron at this time. Suspect her iron deficiency is secondary to poor absorption . Patient knows to call with any questions or concerns. Patient to return to clinic in 6 weeks. Should you have any further questions or concerns, please feel free to give me a call at . I personally spent 45 minutes in patient care on this date reviewing records, obtaining interim history, performing a physical exam, counseling the patient, ordering and reviewing today's labs, and documentin g informatio n in the electronic health record. [id number] DESIREE GARCIA [facility] [address] [place] [address] [place] [id number] 09/07/2024 12:51:51 09/07/2024 13:53:51 Iron deficiency anemia 38445375 D50.9 Patient presents September 07, 2024 for follow-up regarding iron deficiency anemia. Patient noted to have significan t iron deficiency with anemia and has trialed oral supplement s with little to no improvemen t. Patient transition ed to IV iron, and tolerated this well. Suspect her iron deficiency is secondary to poor absorption . Laboratory evaluation today. Laboratory evaluation performed in the office. Labs pending at this time. Should her iron continues to be low would recommend additional IV iron. Patient knows to call with any questions or concerns. Patient to return to clinic in 6 weeks. Should you have any further questions or concerns, please feel free to give me a call at . I personally spent 25 minutes in patient care on this date reviewing records, obtaining interim history, performing a physical exam, counseling the patient, ordering and reviewing today's labs, and documentin g informatio n in the electronic health record. Fatigue 62925020 R53.83 Patient with continued fatigue. Will assess for vitamin B12 deficiency as well. Health Concerns Section Related Observation LastModified by Organization Detai ls LastModified Time None Recorded Concern Status LastModified by Organization Details LastModified Time None Recorded Advance Directives Directive None Recorded Payers Insurance Date Sequence Insurance Name Policy Number Policy Bledsoe Covered Member ID Bledsoe Member ID Guarantor Name 11/07/2024 1 [employer] (MEDICARE) Amanuel Reynaga [id number] Amanuel Reynaga 12/09/[address] [facility] (MEDICARE REPLACEMENT/A DVANTAGE - HMO) [id number] Amanuel Reynaga [id number] Amanuel Reynaga 12/09/2024 2 [place] [facility] [id number] Amanuel Hui Boone [id number] Amanuel Reynaga Notes Date Note Type Note Provider Name and Address Organization Details Recorded Time 09/30/2023 text/html Amanuel is a 73-year-old female who presents today in follow-up. The patient has a history significant for hypertension, hyperlipidemia, carotid artery stenosis, diastolic dysfunction of left ventricle, and chronic venous insufficiency. 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 The patient's right lower extremity was normal and left lower extremity revealed three-vessel runoff to the ankle with no flow-limiting stenosis and good visualization of the dorsalis pedis and posterior tibial arteries to the level of the mid foot. The patient continues to have significant swelling and purple discoloration to her feet, particularly her left foot. The patient has a longstanding history of chronic venous insufficiency. The patient has worsening discoloration and swelling throughout the day and her left lower extremity. LESTER DE LA CRUZ NP, S [address] [place] [address],[address], [place], [address], [place] [facility] [facility] & [place] 09/30/2023 12:37:41 12/30/2023 text/html patient has now seeing vascular surgery for her venous problems. She still has shortness of breath. No chest pain pressure or tightness. Still with mild edema in the legs Sawyer Hernández MD [address] [place] [address],[address], [place], [address], [facility] - [facility] & [place] 12/31/2023 14:02:07 04/21/2024 text/html Amanuel is a 73-year-old female who presents today in follow-up. The patient has a history significant for hypertension, hyperlipidemia, carotid artery stenosis, diastolic dysfunction of left ventricle, and chronic venous insufficiency. Since our last visit, the patient reports that she has been doing well. The patient had a CTA of her chest revealed 3 mm nodules in her right lung that were noncalcified and do not require further evaluation. The patient had a chronic L1 compression fracture which is known to the patient. The patient also had some mild emphysema. History of smoking but in distant past. No other complaints or concerns from a cardiovascular standpoint. The patient has a follow-up with her oral surgeon next month. The patient had a slightly elevated creatinine of 1.75 up from 1.4 earlier this year. The patient has backed off on taking furosemide as her swelling has improved. Laboratory studies are expected by the patient later this month with her PCP. LESTER DE LA CRUZ NP, S [address] [place] [address],[address], [place], [address], [place] [facility] [facility] & [place] 04/21/2024 17:39:50 06/22/2024 text/html 74-year-old female referred for evaluation of iron deficiency anemia. Patient notes she presented to her PCP for routine follow-up and laboratory evaluation. Patient with a past medical history of diabetes, hyperlipidemia, neuropathy, arthritis, and hypertension. Patient complains of significant fatigue. She denies chest or abdominal pain. She denies palpitations or shortness of breath. She denies fever, chills, or night sweats. She denies any overt bleeding. She denies blood in her stool or changes in bowel habits. She denies family history of blood disorders or cancers. Laboratory evaluation from 05/27/2024 reviewed. CBC showed hemoglobin 9.4, hematocrit 30.9, with MCV 84. WBC, platelets, and differential were otherwise unremarkable. Iron studies showed iron 29, TIBC 406 and iron saturation 7%. MARGO MONTAGUE NP [address] [facility],[address], [place], [address], [facility] & [place] 06/23/2024 15:29:20 09/07/2024 text/html 74-year-old female referred for evaluation of iron deficiency anemia. Patient notes she presented to her PCP for routine follow-up and laboratory evaluation. Patient with a past medical history of diabetes, hyperlipidemia, neuropathy, arthritis, and hypertension. Patient complains of significant fatigue. She denies chest or abdominal pain. She denies palpitations or shortness of breath. She denies fever, chills, or night sweats. She denies any overt bleeding. She denies blood in her stool or changes in bowel habits. She denies family history of blood disorders or cancers.Laboratory evaluation from 05/27/2024 reviewed. CBC showed hemoglobin 9.4, hematocrit 30.9, with MCV 84. WBC, platelets, and differential were otherwise unremarkable. Iron studies showed iron 29, TIBC 406 and iron saturation 7%. Patient presents September 07, 2024 for follow-up regarding iron-deficiency anemia. She reports she feels fairly well, noting intermittent fatigue. She reports she tolerated IV iron well. She denies chest or abdominal pain. She denies palpitations or shortness of breath. She denies fever, chills, or night sweats. She denies any overt bleeding. She denies blood in her stool or changes in bowel habits. MARGO MONTAGUE NP [address] [facility],[address], [place], [address], [facility] & [place] 10/10/2024 12:41:41 OBGyn Episode No OBEpisode recorded.
--- OUTSIDE RECORDS SUMMARY | 2025-05-10 13:26 | XMS_ITS | Encounter Summary ---
Author Organization [facility] Address [address] [place] [address] [place] [address] Phone Care Team Providers Care Contracts Intern Name Role Phone Other, Physician Monica LIZ Primary Care Provi pippa Unavailable Encounter Details Date Type Department Care Team (Late st Contact Info) Description 10/05/2023 Telephone [facility] Heart & Vascular [place] [facility] [address] [place] [address] [place] [address] [place] [address] Social History Tobacco Use Types [...] on filedocumented in this encounter Care Teams Contracts Intern Relationship Specialty Start Date End Date Other, Physician MD Monica Other PCP - General Internal Medicine 09/30/23 documented as of this encounter
--- OUTSIDE RECORDS SUMMARY | 2025-05-10 13:26 | XMS_ITS | Clinical Summary ---
Author Organization [facility] Address [address] [place] [address] Care Team Providers Care Validation Consultant Name Role Phone Other, Physician Sashaofnando LIZ [...] topic Insurance MEDICARE on file Care Teams Validation Consultant Relationship Specialty Start Date End Date Other, Physician MD Monica Other PCP - General Internal Medicine 09/30/23
== END 2025-05-10 23:59 | disposition home or self-care (01) ==
LOC: RAD 13:11
PROVIDERS: PCP Nurse Practitioner Family; Visit Provider Physician Assistant
DX: M17.11 Unilateral primary osteoarthritis, right knee (principal)
CPT/HCPCS: 73562

== ENCOUNTER 2025-05-10 16:10 | Outpatient (RCR) | payer MEDICARE, SELFPAY | END 2025-05-10 23:59 | disposition home or self-care (01) | LOC: PT 16:10 | PROVIDERS: PCP Nurse Practitioner Family; Visit Provider Physician Assistant | DX: M23.91 Unspecified internal derangement of right knee (principal) | CPT/HCPCS: 97763 ==

== ENCOUNTER 2025-05-17 13:37 | Outpatient (CLI) | payer MEDICARE, SELFPAY ==
--- OUTSIDE RECORDS SUMMARY | 2025-05-01 12:45 | XMS_ITS | Encounter Summary ---
Author Organization [employer] ([place], [place], [place], [place], [place]) Address [address] [place] [address] Care Team Providers Care Revenue Cycle Specialist Name Role Phone Chris Valdivia Primary Care Provider Sawyer Hernández MD Unavailable [phone] David Loredo MD Unavailable [phone] Neville Maki MD Unavailable Reason for Visit * Reason Comments Follow-up Encounter Details Date Type Department Care Team (Late st Contact Info) Description 05/01/2025 1:45 PM EDT Office Visit [facility] Neurology - [address] [address] Edwin Hernandez MD [address] [place] [address] BPPV (benign paroxysmal positional vertigo) (Primary Dx); Right arm weakness Social History [...] Date Matias rded Speak language other than Comoran at home Not on file 10/12/2023 Want [...] Sign Reading Time Taken Comments Blood Pressure 136/68 05/01/2025 1:49 PM EDT Pulse 88 05/01/2025 1:49 PM EDT Temperature - - Respiratory Rate - - Oxygen Saturation 94% 05/01/2025 1:49 PM EDT Inhaled Oxygen Concentration - - Weight 97.8 kg (215 lb 9.6 oz) 05/01/2025 1:49 P M EDT Height 160 cm (5' 3 ) 05/01/2025 1:49 PM EDT Body Mass Index 38.19 05/01/2025 1:49 PM EDT documented in this encounter Progress Notes * Edwin Hernandez MD - 05/01/2025 1:45 PM EDT Neuro - Office Visit Date of Service: 05/01/2025 Subjective: Chief Complaint Patient presents with Follow-up Heidi Shook is a 75 y.o. female who returns in the clinic due to concern for right arm weakness-last seen 01/26/2025. Reports that in 10/2024 was sitting in the living room, startled awake and noticed she was unable tofeel her RUE. Presented to clinic 3 days later-referred to [facility] for CT brain-this was unrevealing. [...] of carotid artery stenosis. +Jose Miguel Hallpike. Referred patient for vestibular training exercises given presentation consistent with BPPV-has not been able to make Given risk factors of hypertension and hyperlipidemia we cannot r/o posterior ischemic infarcts thus we referred patient for MRI brain without contrast-was performed at [facility] I referred patient to occupational therapy for right hand focused exercises-Sx resolved. Review of Systems Constitutional: Negative. Neurological: Positive for weakness. The patient's medical history, surgical history, and social history were reviewed and updated as appropriate. Objective: BP 136/68 Pulse 88 Ht 1.6 m (5' 3 ) Wt 97.8 kg (215 lb 9.6 oz) SpO2 94% BMI 38.19 kg/m?? Mental Status - Alert. General Appearance [...] and lower extremities. Gait: Normal Assessment: 1. BPPV (benign paroxysmal positional vertigo) 2. Right arm weakness Plan: Diagnoses and all Orders for this Visit: 1. BPPV (benign paroxysmal positional vertigo) 2. Right arm weakness Follow Up: Return in about 1 year (around 05/01/2026). Discussion and Summary: We will request MRI images to be downloaded from [facility]. Encouraged patient to make it to physical therapy for vestibular training. Follow up in clinic in 1 year. Pt understands they can call the clinic at anytime with questions. Time spent on the date of encounter: 30 minutes. Time includes time spent reviewing previous medical records, time spent [id number] with patient, counseling/education, putting in orders and electronic documentation. documented in this encounter Plan of Treatment Not on file documented as of this encounter Visit Diagnoses Diagnosis BPPV (benign paroxysmal positional vertigo)- Primary Benign paroxysmal positional vertigo Right arm weakness Other musculoskeletal symptoms referable to limbs documented in this encounter Care Teams Revenue Cycle Specialist Relationship Specialty Start Date End Date Chris Valdivia [address] [place] [address] PCP - General 10/12/23 Sawyer Hernández MD [address] [place] [address] Cat Driver Cardiology 10/12/23 David Loredo MD [address] [facility] [address] [place] [address] Surgeon Cardiothoracic Surgery 11/19/23 Neville Maki MD [address] [facility] [address] [place] [address] Cardiology 12/01/23 documented as of this encounter
--- OUTSIDE RECORDS SUMMARY | 2025-05-17 13:51 | XMS_ITS | Encounter Summary ---
Author Organization [facility] Address [address] [place] [address] [place] [address] Phone Care Team Providers Care Clinical Trial Manager Name Role Phone Other, Physician Monica LIZ Primary Care Provi pippa Unavailable Encounter Details Date Type Department Care Team (Late st Contact Info) Description 10/05/2023 Telephone [facility] Heart & Vascular [place] [facility] [address] [place] [address] [place] [address] [place] [address] Social History Tobacco Use Types [...] on filedocumented in this encounter Care Teams Clinical Trial Manager Relationship Specialty Start Date End Date Other, Physician MD Monica Other PCP - General Internal Medicine 09/30/23 documented as of this encounter
--- OUTSIDE RECORDS SUMMARY | 2025-05-17 13:51 | XMS_ITS | Encounter Summary ---
Author Organization [facility] ([place], [place], [place], [place], [place]) Address [address] [place] [address] Care Team Providers Care Transferrer Name Role Phone Chris Valdivia Primary Care Provider [phone] Sawyer Hernández MD Unavailable [phone] David Loredo MD Unavailable Neville Maki MD Unavailable Encounter Details Date Type Department Care Team (Late st Contact Info) Description 02/21/2025 Telephone [facility] - [address] [facility] [address] [place] [phone] Edwin Hernandez MD [address] [place] [address] [place] [address] Social History Tobacco Use Types Packs/Day Years [...] Date Matias rded Speak language other than Zambian at home Not on file 10/12/2023 Want [...] on filedocumented in this encounter Care Teams Transferrer Relationship Specialty Start Date End Date Chris Valdivia [address] [place] [address] [place] [address] PCP - General 10/12/23 Sawyer Hernández MD [address] [place] [address] Medical Assisting Instructor Cardiology 10/12/23 David Loredo MD [address] [place] [address] [address] [place] [address] Surgeon Cardiothoracic Surgery 11/19/23 [place] [address] [place] [address] [address] [place] [address] Cardiology 12/01/23 documented as of this encounter
--- OUTSIDE RECORDS SUMMARY | 2025-05-17 13:51 | XMS_ITS | Data Portability ---
Author Organization [place] [facility] Address [address] [place] [address] Care Team Providers Care Export Freight Clerk Name Role Phone CHRIS DAWN Primary Care [...] activity. - This note was dictated using LikeBright software. If something is unclear, or does not make sense, please do not hesitate to contact our office at [phone] for clarification. Not available 09/30/2023 12:34:23 12/30/2023 [...] activity. - This note was dictated using LikeBright software. If something is unclear, or does not make sense, please do not hesitate to contact our office at [phone] for clarification. [email or web address] Not available 12/31/2023 14:01:52 [...] activity. - This note was dictated using LikeBright software. If something is unclear, or does not make sense, please do not hesitate to contact our office at [phone] for clarification. Not available 04/21/2024 17:39:44 Plan of Treatment Reminders Order Date Submit Date Provider Last Modified By Organization Details Last Modified Time Details Appointments None recorded. Lab vitamin B12 + folate, serum or blood 2024 025 [facility] (Registration ), [address], [place], [address], 5 08:13:39 CBC w/ auto diff 2024 025 [facility] (Registration ), [address], [place], [address], 5 10:43:02 iron + total iron-maycol ng capacity (TIBC), serum 2024 025 [facility] (Registration ), [address], [place], [address], 5 10:43:02 ferritin, serum or plasma 2024 025 [facility] (Registration ), [place], [address], 5 10:43:02 BMP, serum or plasma 2024 025 [facility] (Registration ), [place], [address], 5 10:43:02 creatinine , serum or plasma [address] (Registration ), [address] [place] [address] , [place], [address], 4 10:26:11 Referral vascular surgeon referral 2023 024 [email or web address] [address] [place], [address], [place], [address], 4 08:16:00 Procedures None recorded. Surgeries None recorded. Imaging electrocar diogram 2023 024 [email or web address] Mv [facility], [address] [place] [address] [address], [place], [address], 4 14:51:39 CT, chest, w/ contrast [address] (Centralized Scheduling), [address] [place] [address] , [place], [address], 4 09:08:33 Medication Orders Feraheme 510 mg/17 mL (30 mg/mL) intravenou s solution [address], [address], 4 15:25:16 Patient TargetsNo targets recorded. Patient [...] Order ing Provi pippa: Mac Dominguez is GENERAL SERVICE OFFICER Not Available [address] , [place], [address], 09/09/2023 09:49:39 09/09/19 24 09/09/2023 BASIC METAB OLIC PANEL sodium 136 mmol/ L 136-14 5 normal Not Available [address] [place], [place], [address], 09/09/2023 09:49:39 09/09/19 24 09/09/2023 BASIC METAB OLIC PANEL potassium 4.7 mmol/ L 3.5-5. 1 normal Not Available [address] [place], [place], [address], 09/09/2023 09:49:39 09/09/19 24 09/09/2023 BASIC METAB OLIC PANEL chloride 100 mmol/ L 98-107 normal Not Available [address] [place], [place], [address], 09/09/2023 09:49:39 09/09/19 24 09/09/2023 BASIC METAB OLIC PANEL carbon dioxide 29 mmol/ L 24-33 normal Not Available [address] [place], [place], [address], 09/09/2023 09:49:39 09/09/19 24 09/09/2023 BASIC METAB OLIC PANEL anion gap 11.7 mmol/ L 10-20 normal Not Available [address] [place], [address], 09/09/2023 09:49:39 09/09/19 24 09/09/2023 BASIC METAB OLIC PANEL glucose 113 mg/dL 70-99 high Not Available [address] [place], [address], 09/09/2023 09:49:39 09/09/19 24 09/09/2023 BASIC METAB OLIC PANEL blood urea nitrogen 30 mg/dL 7-18 high Not Available [address] [place], [address], 09/09/2023 09:49:39 09/09/19 24 09/09/2023 BASIC METAB OLIC PANEL creatinine 1.43 mg/dL 0.55-1 .02 high Not Available [address] [place], [address], 09/09/2023 09:49:39 09/09/19 24 09/09/2023 BASIC METAB [...] care of your patie nt. Not Available [address] , [place], [address], 09/09/2023 09:49:39 09/09/19 24 09/09/2023 BASIC METAB OLIC PANEL BUN/creatini ne ratio 20 12-20 normal Not Available [address] , [place], [address], 09/09/2023 09:49:39 09/09/19 24 09/09/2023 BASIC METAB OLIC PANEL calcium 9.2 mg/dL 8.5-10 .1 normal Not Available [address] , [place], [address], 09/09/2023 09:49:39 09/09/19 24 09/09/2023 BASIC METAB OLIC PANEL osmolality serum calculated 278 mOsm/ kg 272-28 8 normal Not Available [address] , [place], [address], 09/09/2023 09:49:39 09/09/19 24 09/09/2023 BASIC METAB OLIC PANEL performing lab SEE NOTE ML - [facility] R [address] [facility] [address] Not Available [address] , [place], [address], 09/09/2023 09:49:39 09/09/19 24 09/09/2023 MAGNE SIUM note SEE NOTE Order ing Provi pippa: Mac Dominguez is GENERAL SERVICE OFFICER Not Available [address] , [place], [address], 09/09/2023 09:49:40 09/09/19 24 09/09/2023 MAGNE SIUM magnesium 1.6 mg/dL 1.8-2. 4 low Not Available [address] , [place], [address], 09/09/2023 09:49:40 09/09/19 24 09/09/2023 CHANDLER HARDY performing lab SEE NOTE ML - [facility] [address] [facility] [address] Not Available [address] , [place], [address], 09/09/2023 09:49:40 01/21/20 24 01/21/2024 CREAT ININE W/GFR note SEE NOTE Order ing Provi pippa: Sawyer torres MD Not Available [address] , [place], [address], 01/21/2024 09:57:14 01/21/20 24 01/21/2024 CREAT ININE W/GFR creatinine 1.75 mg/dL 0.55-1 .02 high Not Available [address] , [place], [address], 01/21/2024 09:57:14 01/21/20 24 01/21/2024 CREAT ININE [...] e note that the eGFR now repor josehp is gener ated by the new 2020 [...] care of your patie nt. Not Available [address] , [place], [address], 01/21/2024 09:57:14 01/21/20 24 01/21/2024 CREAT ININE W/GFR performing lab SEE NOTE ML - [facility] R [address] [facility] [facility] [address] Not Available [address] , [place], [address], 01/21/2024 09:57:14 09/08/19 25 09/07/2024 FE W/TOT AL IRON MAYCOL NG CAP note SEE NOTE Order ing Provi pippa: Adelso oseguera GENERAL SERVICE OFFICER Not Available [address] , [place], [address], 09/07/2024 18:10:59 09/08/19 25 09/07/2024 FE W/TOT AL IRON MAYCOL NG CAP iron 105 ug/dL 50-170 normal Not Available [address] , [place], [address], 09/07/2024 18:10:59 09/08/19 25 09/07/2024 FE W/TOT AL IRON AMYCOL NG CAP total iron binding capacity 262 ug/dL 260-44 5 normal Not Available [address] , [place], [address], 09/07/2024 18:10:59 09/08/19 25 09/07/2024 FE W/TOT AL IRON MAYCOL NG CAP iron saturation 40 % 20-50 normal Not Available [address] , [place], [address], 09/07/2024 18:10:59 09/08/19 25 09/07/2024 FE W/TOT AL IRON MAYCOL NG CAP performing lab SEE NOTE ML - [facility] [address] [facility] [address] Not Available [address] , [place], [address], 09/07/2024 18:10:59 09/08/19 25 09/07/2024 BASIC METAB OLIC PANEL note SEE NOTE Order ing Provi pippa: Adelso oseguera APRN Not Available [address] , [place], [address], 09/07/2024 18:47:29 09/08/19 25 09/07/2024 BASIC METAB OLIC PANEL sodium 141 mmol/ L 136-14 5 normal Not Available [address] , [place], [address], 09/07/2024 18:47:29 09/08/19 25 09/07/2024 BASIC METAB OLIC PANEL potassium 4.5 mmol/ L 3.5-5. 1 normal Not Available [address] , [place], [address], 09/07/2024 18:47:29 09/08/19 25 09/07/2024 BASIC METAB OLIC PANEL chloride 101 mmol/ L 98-107 normal Not Available [address] , [place], [address], 09/07/2024 18:47:29 09/08/19 25 09/07/2024 BASIC METAB OLIC PANEL carbon dioxide 28 mmol/ L 24-33 normal Not Available [address] , [place], [address], 09/07/2024 18:47:29 09/08/19 25 09/07/2024 BASIC METAB OLIC PANEL anion gap 16.5 mmol/ L 10-20 normal Not Available [address] , [place], [address], 09/07/2024 18:47:29 09/08/19 25 09/07/2024 BASIC METAB OLIC PANEL glucose 70 mg/dL 70-99 normal Not Available [address] , [place], [address], 09/07/2024 18:47:29 09/08/19 25 09/07/2024 BASIC METAB OLIC PANEL blood urea nitrogen 28 mg/dL 7-18 high Not Available [address] , [place], [address], 09/07/2024 18:47:29 09/08/19 25 09/07/2024 BASIC METAB OLIC PANEL creatinine 1.32 mg/dL 0.55-1 .02 high Not Available [address] , [place], [address], 09/07/2024 18:47:29 09/08/19 25 09/07/2024 BASIC METAB [...] care of your patie nt. Not Available [address] , [place], [address], 09/07/2024 18:47:29 09/08/19 25 09/07/2024 BASIC METAB OLIC PANEL BUN/creatini ne ratio 21 12-20 high Not Available [address] [place], [address], 09/07/2024 18:47:29 09/08/19 25 09/07/2024 BASIC METAB OLIC PANEL calcium 9.8 mg/dL 8.5-10 .1 normal Not Available [address] [place], [address], 09/07/2024 18:47:29 09/08/19 25 09/07/2024 BASIC METAB OLIC PANEL osmolality serum calculated 284 mOsm/ kg 272-28 8 normal Not Available [address] , [place], [address], 09/07/2024 18:47:29 09/08/19 25 09/07/2024 BASIC METAB OLIC PANEL performing lab SEE NOTE ML - [facility] [address] [facility] [address] Not Available [address] , [place], [address], 09/07/2024 18:47:29 09/08/19 25 09/07/2024 ANDREW TIN note SEE NOTE Order ing Provi pippa: Adelso oseguera GENERAL SERVICE OFFICER Not Available [address] , [place], [address], 09/07/2024 18:47:30 09/08/19 25 09/07/2024 ANDREW TIN ferritin 348 NG/mL 8-252 high Not Available [address] , [place], [address], 09/07/2024 18:47:30 09/08/19 25 09/07/2024 ANDREW TIN performing lab SEE NOTE ML - [facility] [address] [facility] [address] Not Available [address] , [place], [address], 09/07/2024 18:47:30 09/08/19 25 09/07/2024 CBC W/AUT O DIFFE JOAQUIN AL note SEE NOTE Order ing Provi pippa: Adelso oseguera GENERAL SERVICE OFFICER Not Available [address] , [place], [address], 09/07/2024 18:51:41 09/08/19 25 09/07/2024 CBC W/AUT O DIFFE RENTI AL white blood cell 6.5 10e3/ uL 4.5-13 .0 normal Not Available [address] [place], [place], [address], 09/07/2024 18:51:41 09/08/19 25 09/07/2024 CBC W/AUT O DIFFE RENTI AL red blood cell 4.20 10e6/ uL 3.80-5 .10 normal Not Available [address] [place], [place], [address], 09/07/2024 18:51:41 09/08/19 25 09/07/2024 CBC W/AUT O DIFFE RENTI AL hemoglobin 12.7 g/dL 11.5-1 5.3 normal Not Available [address] [place], [place], [address], 09/07/2024 18:51:41 09/08/19 25 09/07/2024 CBC W/AUT O DIFFE RENTI AL hematocrit 39.7 % 34.0-4 6.0 normal Not Available [place] [address], [place], [address], 09/07/2024 18:51:41 09/08/19 25 09/07/2024 CBC W/AUT O DIFFE RENTI AL mean cell volume 95 fL 78.0-9 8.0 normal Not Available [address] [place], [place], [address], 09/07/2024 18:51:41 09/08/19 25 09/07/2024 CBC W/AUT O DIFFE RENTI AL mean cell HGB 30.2 pg 25.0-3 5.0 normal Not Available [address] [place], [place], [address], 09/07/2024 18:51:41 09/08/19 25 09/07/2024 CBC W/AUT O DIFFE RENTI AL mean cell HGB concentratio n 32.0 g/dL 31.0-3 6.0 normal Not Available [address] , [place], [address], 09/07/2024 18:51:41 09/08/19 25 09/07/2024 CBC W/AUT O DIFFE RENTI AL red cell distribution width 18.7 % 11.0-1 5.0 high Not Available [address] , [place], [address], 09/07/2024 18:51:41 09/08/19 25 09/07/2024 CBC W/AUT O DIFFE RENTI AL platelet count 220 10e3/ uL 150-40 0 normal Not Available [address] , [place], [address], 09/07/2024 18:51:41 09/08/19 25 09/07/2024 CBC W/AUT O DIFFE RENTI AL immature granulocyte % 0 0-1 normal Not Available [address] , [place], [address], 09/07/2024 18:51:41 09/08/19 25 09/07/2024 CBC W/AUT O DIFFE RENTI AL neutrophil % 58 % 35-75 normal Not Available [address] , [place], [address], 09/07/2024 18:51:41 09/08/19 25 09/07/2024 CBC W/AUT O DIFFE RENTI AL lymphocyte % 26 % 10-50 normal Not Available [address] , [place], [address], 09/07/2024 18:51:41 09/08/19 25 09/07/2024 CBC W/AUT O DIFFE RENTI AL monocyte % 7 % 0-15 normal Not Available [address] , [place], [address], 09/07/2024 18:51:41 09/08/19 25 09/07/2024 CBC W/AUT O DIFFE RENTI AL eosinophil % 8 % 0-5 high Not Available [address] [place], [place], [address], 09/07/2024 18:51:41 09/08/19 25 09/07/2024 CBC W/AUT O DIFFE RENTI AL basophil % 1 % 0-5 normal Not Available [address] , [place], [address], 09/07/2024 18:51:41 09/08/19 25 09/07/2024 CBC W/AUT O DIFFE RENTI AL immature granulocyte # 0.01 x1000 /uL 0-0.05 normal Not Available [address] , [place], [address], 09/07/2024 18:51:41 09/08/19 25 09/07/2024 CBC W/AUT O DIFFE RENTI AL neutrophil # 3.76 x1000 /uL 1.50-8 .00 normal Not Available [address] [place], [place], [address], 09/07/2024 18:51:41 09/08/19 25 09/07/2024 CBC W/AUT O DIFFE RENTI AL lymphocyte # 1.70 x1000 /uL 1.20-5 .20 normal Not Available [address] , [place], [address], 09/07/2024 18:51:41 09/08/19 25 09/07/2024 CBC W/AUT O DIFFE RENTI AL monocyte # 0.46 x1000 /uL 0.40-0 .90 normal Not Available [address] , [place], [address], 09/07/2024 18:51:41 09/08/19 25 09/07/2024 CBC W/AUT O DIFFE RENTI AL eosinophil # 0.55 x1000 /uL 0.00-0 .50 high Not Available [address] , [place], [address], 09/07/2024 18:51:41 09/08/19 25 09/07/2024 CBC W/AUT O DIFFE RENTI AL basophil # 0.03 x1000 /uL 0.00-0 .30 normal Not Available [address] , [place], [address], 09/07/2024 18:51:41 09/08/19 25 09/07/2024 CBC W/AUT O DIFFE RENTI AL NRBC automated 0.0 /100_ WBC Not Available [address] , [place], [address], 09/07/2024 18:51:41 09/08/19 25 09/07/2024 CBC W/AUT O DIFFE RENTI AL morphology comment SLIGHT ANISO normal Not Available [address] , [place], [address], 09/07/2024 18:51:41 09/08/19 25 09/07/2024 CBC W/AUT O DIFFE RENTI AL platelet morphology ADEQUA TE IN NUMBER Not Available [address] , [place], [address], 09/07/2024 18:51:41 09/08/19 25 09/07/2024 CBC W/AUT O DIFFE RENTI AL performing lab SEE NOTE - [facility] R [address] [facility] [address] Not Available [address] , [place], [address], 09/07/2024 18:51:41 09/08/19 25 09/07/2024 VITAM IN B12 FOLAT E note SEE NOTE Order ing Provi pippa: Adelso oseguera APRN Not Available [address] [place], [address], 09/09/2024 08:13:39 09/08/19 25 09/07/2024 VITAM IN B12 FOLAT E vitamin B12 412 pg/mL 232-12 45 Not Available [address] [place], [address], 09/09/2024 08:13:39 09/08/19 25 09/07/2024 VITAM IN B12 FOLAT E folic acid 4.8 NG/mL >3.0 . A serum folat e loida ntrat ion of less than 3.1 ng/mL is consi dered to repre sent clini rema defic iency . Perfo rmed At: CB, [facility] [address], [place], [address] Rosalio porras, PhD, Phone : [phone] Not Available [address] , [place], [address], 09/09/2024 08:13:39 09/08/19 25 09/07/2024 VITAM IN B12 FOLAT E performing lab SEE NOTE LC2 - [facility] RP CLIEN T# [id number] [id number] [address] [place] [address] Not Available [address] [place], [address], 09/09/2024 08:13:39 09/02/19 24 09/02/2023 elect yeni shaw am No observ ation record ed. SOY [place] [address] [place], [place], [address], 09/02/2023 13:58:56 09/02/19 24 09/02/2023 elect yeni shaw am No observ ation record ed. [email or web address] Not Available 2023 14:02:37 09/09/19 24 09/09/2023 - CT angio ABD W wo runof f [facility] Ce Name: AMANUEL REYNAGAK-[employer] [address] Phys: [place] [address] : 1949 Age: 73 Sex: F Acct: [id number] Loc: G.CT PHONE #: Exam Date: 2023 Status : REG CLI FAX #: Rad# [id number] Unit# [id number] Admit Date: 2023 EXAMS: CPT CODE: [id number] 807 CT ANGIO ABD W WO RUNOFF 10490 HISTOR Y: Left lower extrem ity swelli [...] perfor med and evalua joseph on a [employer] te workst ation. Automa joseph exposu re [...] with good visual izatio n of the fine arts packer ior tibial and anteri or tibial arteri es throug h the level of the midfoo t. There is asymme tric diffus e superf icial edema in the left lower extrem ity below the level of the knee. PAGE 1 Signed Report (MANJIT NUED) [facility] Name: AMANUEL REYNAGA [facility] Medica [facility] [employer] Phys: [place] [address] : 1949 Age: 73 Sex: F Acct: [id number] Loc: G.CT PHONE #: Exam Date: 2023 Status : REG CLI FAX #: [phone] Rad# [id number] Unit# [id number] Admit Date: 2023 EXAMS: CPT CODE: [id number] 807 CT ANGIO ABD W WO RUNOFF 20734 IMPRES MELODY: 1. 50% stenos is origin [...] n of the dorsal is pedis and fine arts packer ior tibial arteri es to the level [...] M.D. PAGE 2 Signed Report (MANJIT NUED) [facility] Ce Name: AMANUEL REYNAGA [employer] [facility] [employer] Phys: Efrem Page [place] [address] : 1949 Age: 73 Sex: F Acct: [id number] Loc: G.CT PHONE #: [phone] Exam Date: 2023 Status : REG CLI FAX #: Rad# [id number] Unit# [id number] Admit Date: 2023 EXAMS: CPT CODE: [id number] 807 CT ANGIO ABD W WO RUNOFF 71351 CC: Diogenes Dawn APRN; Betsey abernathy APRN [...] GRANT Consul ting Provid er: [facility]DA [facility] [address] , [place], [address], 09/30/2023 12:37:12 09/22/19 24 09/22/2023 elect rocmauro diogr am No observ ation record ed. [email or web address] Not Available 2023 08:13:54 01/21/20 24 01/21/2024 CT, chest , w/o contr ast [facility] Ce Name: AMANUEL REYNAGA [address] [place] [address] Drive Phys: Betty LIZ, [place] [id number] : 1949 Age: 73 Sex: F Acct: [id number] Loc: G.LAB PHONE #: Exam Date: 2023 Status : REG CLI FAX #: Rad# [id number] Unit# [id number] Admit Date: 2023 EXAMS: CPT CODE: [id number] 856 CT CHEST W/O CONTRA ST [address] CT CHEST WITHOU T CONTRA ST, 024: [...] e and no follow -up is necess eladio *Recom mendat ions for follow up/man agemen [...] ended, PAGE 1 Signed Report (MANJIT NUED) [facility] Name: AMANUEL REYNAGA [facility] [employer] Phys: Betty LIZ, [place] [address] : 1949 Age: 73 Sex: F Acct: [id number] Loc: ISMA PHONE #: [phone] Exam Date: 2023 Status : REG CLI FAX #: Rad# [id number] Unit# [id number] Admit Date: 2023 EXAMS: CPT CODE: [id number] 856 CT CHEST W/[place] [address] unless specif sheritaharmanbryant fisher megan in the impres melody. Electr onical ly Signed by ANSHUL HAHN MD on 2023 at 1451 Report ed and signed by: ANSHUL HAHN MD CC: Diogenes Dawn GENERAL SERVICE OFFICER; Sawyer Hernández MD Dictat ed Date/T jose juan: 2023 (1451) Techno logist : GARY BOOGIE Y Transc ribed Date/T jose juan: 2023 (1451) Transc riptio nist: DR.HAG JOHNATHAN Newman onic Signat ure Date/T jose juan: 2023 (1451) Printe d Date/T jose juan: 2023 (1454) BATCH NO: N/A PAGE 2 Signed Report CC'ed Logic: Orderi ng Provid er: BETTY PETESR Attend ing Provid er: BETTY PETERS Referr ing Provid er: BETTY PETERS Consul ting Provid er: NEREYDA Hui [email or web address] , [place], [address], 04/21/2024 17:38:02 04/21/20 24 elect rocar diogr am No observ ation record ed. [email or web address] Mv [address] [place], [place], [address], 04/21/2024 13:20:26 04/21/20 24 04/21/2024 elect yeni shaw am No observ ation record ed. SOY [place] [address] [facility] [address] [place], [place], [address], 04/21/2024 15:54:20 Result Notes Documentation Provider Name and Address Organization Details Recorded Time Ct, Chest, W/o Contrast : [facility] Ce Name: AMANUEL REYNAGA [address] [place] [address] Phys: Betty LIZ, [place] [address] : 1950 Age: 73 Sex: F Acct: [id number] Loc: G.LAB PHONE #: Exam Date: 01/21/2024 Status: REG CLI FAX #: Rad# [id number] Unit# [id number] Admit Date: 01/21/2024 EXAMS: CPT CODE: [id number] CT CHEST W/O CONTRAST [address] CT CHEST WITHOUT CONTRAST, 01/21/2024: CLINICAL HISTORY: Worsening shortness of breath for 2 years. History of hypertension and prior tobacco use COMPARISON: [None.] TECHNIQUE: Multiple axial images through the chest were obtained without the use of intravenous contrast. This data was used to perform coronal reconstructions. [employer] Auto mA automated exposure control was utilized [...] is recommended, PAGE 1 Signed Report (CONTINUED) [facility] Ce Name: AMANUEL REYNAGA [address] [facility] Phys: Betty LIZ, [place] [address] : 1950 Age: 73 Sex: F Acct: [id number] Loc: Caorl.LAB PHONE #: Exam Date: 01/21/2024 Status: REG CLI FAX #: Rad# [id number] Unit# [id number] Admit Date: 01/21/2024 EXAMS: CPT CODE: [id number] CT CHEST W/O CONTRAST 05093 unless specifically mentioned in the impression. at 1451 Reported and signed by: PETE HERR MD CC: Chris Dawn APRN; Sawyer Hernández MD Dictated Date/Time: 01/21/2024 (145) Technologist: GARY TAMAYO; JYOTI GIBBS Transcribed Date/Time: 01/21/2024 (145) Jet Engine Mechanic: Electronic Signature Date/Time: 01/21/2024 (145) Printed Date/Time: 01/21/2024 (145) BATCH NO: N/A PAGE 2 Signed Report CC'ed Logic: Ordering Provider: BETTY PETERS Attending Provider: BETTY PETERS Referring Provider: BETTY PETERS Consulting Provider: NEREYDA DE LA CRUZ NP, [address] [facility],[address], [place], [address] [address]/17/2024 17:38:02 Problems Name Problem SNOMED Code Status Onset Date Resolution Date Notes Provider Name and Address Organization Details Recorded Time Diabetes mellitus 54359526 Active Arely Nito null, [place] [facility] [place] [facility] [place] 3 14:25:42 Insomnia 085657497 Active 2021 A[place] [facility] [place] 3 14:25:41 Edema 012470442 Active 2021 A[place] 3 14:25:41 Depressive disorder 91592913 Active 2021 A[place] 3 14:25:41 Hypertensive disorder 48273395 Active 2021 Arely N[place] 3 14:25:41 Neuropathy 887150346 Active 2021 A[place] 3 14:25:41 Type 2 diabetes mellitus 65859803 Active 2021 Arely [place] 3 14:25:41 Hyperlipidemia 69130403 Active 2021 Arely [place] 3 14:25:42 Neuropathy due to diabetes mellitus 895221239 Active 2021 Arely Nito [place] [facility] 3 14:25:41 Persistent insomnia 344922787 Active 2021 Arely N[place] [facility] 3 14:25:41 Near syncope 875521123 Active 2022 Sawyer Hernández MD [address] [place] [address],[address], [address] [facility] [place] [facility] [place] 3 09:42:41 Tight chest 81521648 Active 2022 Sawyer Hernández MD [facility] [address], [place], [address], [place] [facility] [place] 3 09:42:52 Dyspnea on exertion 03844282 Active 2022 Sawyer Hernández MD [facility] [address], [place], [address], [place] [facility] - [facility] & [place] 3 09:42:58 Essential hypertension [id number] Active 2022 Sawyer Hernández MD [facility] [employer],[address], [place], [address], [place] [facility] & [place] 3 14:23:04 Type 2 diabetes mellitus without complication [id number] Active 2022 Sawyer Hernández MD [facility] [employer],[address], [place], [address], [place] [facility] - [facility] [place] 3 14:23:11 Electrocardiog jose abnormal 889528516 Active 2022 Sawyer Hernández MD [facility] [employer],[address], [place], [address], [place] - [facility] - [facility] [place] 3 14:23:23 Diastolic dysfunction 0937375 Active 2022 Sawyer Hernández MD [facility] [employer],[address], [place], [address], [place] - [facility] [place] 3 12:31:57 Bilateral carotid artery occlusion 275182567 Active 2022 Sawyer Hernández MD [facility] [employer],[address], [place], [address], [place] - [facility] [place] 3 12:32:03 Peripheral venous insufficiency 54382930 Active 2023 Sawyer Hernández MD [facility] [employer],[address], [place], [address], [place] - [place] & [place] 4 14:00:58 Iron deficiency anemia 38390420 Active 2023 MARGO MONTAGUE NP [address] [facility],[address], [place], [address], [place] - [place] & [place] 4 15:18:01 Fatigue 79463133 Active 2024 MARGO MONTAGUE NP [address] [facility],[address], [place], [address], [place] & [place] 5 12:41:10 Problem Notes None recorded. Procedures Surgical History Date Name Laterality Status Provider Name and Address Organization Details Recorded Time operative procedure on knee completed Arely Nito [place] - [place] & [place] 04/07/2023 14:53:34 procedure on shoulder completed Arely Nito [place] 04/07/2023 14:53:49 Hysterectomy completed Arely Nito [place] 04/07/2023 14:53:58 cholecystectomy completed Kell Garcia [place] - [place] & [place] 06/22/2024 11:54:43 Imaging Results None recorded. Procedure Notes None recorded. Medical Equipment None Reported. Allergies Allergen ID Allergen Name Allergen Category Reaction Reaction Severity Criticality Documentation Date Start Date Code Code System Note Provider Name and Address Organization Details Recorded Time 07335 Product containin g penicilli n (product) medicatio n rash Not available Not available 04/07/2023 69070 8001 SNOMED Arely Nito null, [place] - [place] - [place] & [place] 3 14:25:29 91623 Product containin g penicilli n (product) medicatio n Not available Not available Not available 04/07/2023 79090 8001 SNOMED Arely Nito null, [place] - [place] & [place] 14:27:04 47083 Substance with sulfonami de structure and antibacte rial mechanism of action (substanc e) medicatio n anaphylax is Not available Not available 04/07/2023 65529 8003 SNOMED NORY Rubin [facility] & [place] 3 14:25:29 88364 Substance with sulfonami de structure and antibacte rial mechanism of action (substanc e) medicatio n Not available Not available Not available 04/07/2023 57682 8003 SNOMED NORY Rubin [facility] & [place] 3 14:27:08 30342 neomycin medicatio n Not available Not available Not available 04/07/2023 7299 RxNorm NORY Rubin [facility] & [place] 3 14:25:29 Medications Name Sig Start Date [...] Updated DateTime 5 160.02 cm 21.4 kg/m2 63000.6 8 g 97.3 [degF] 96 % 96 % 91 /min 16 /min 113/56 mm[Hg] Renata Scherer [place] [facility] [facility] & [place] 5 13:23:57 Date Recorded Body height Body mass index (BMI) Body weight Oxygen saturation Oxygen saturation in Arterial blood by Pulse oximetry Heart rate Systolic And Diastolic Provider Name and Address Organization Details Last Updated DateTime 4 160.02 cm 29.1 kg/m2 64540.1 5 g 97 % 97 % 75 /min 120/72 mm[Hg] Rebekah torres [place] [facility] & [place] 4 09:53:54 Date Recorded Body height Oxygen saturation Oxygen saturation in Arterial blood by Pulse oximetry Heart rate Systolic And Diastolic Provider Name and Address Organization Details Last Updated DateTime 4 160.02 cm 97 % 97 % 70 /min 130/70 mm[Hg] Katrina Israel [place] [facility] & [place] 4 08:10:34 Date Recorded Body height Body mass index (BMI) Body weight Oxygen saturation Oxygen saturation in Arterial blood by Pulse oximetry Heart rate Systolic And Diastolic Provider Name and Address Organization Details Last Updated DateTime 4 160.02 cm 24.8 kg/m2 77816.9 3 g 100 % 100 % 83 /min 122/64 mm[Hg] Rebekah Giuseppe torres [place] [facility] [facility] & [place] 4 13:19:24 Date Recorded Body mass index (BMI) Body weight Body temperature Oxygen saturation Oxygen saturation in Arterial blood by Pulse oximetry Heart rate Respiratory rate Systolic And Diastolic Provider Name and Address Organization Details Last Updated DateTime 4 24.4 kg/m2 94873.7 5 g 98.4 [degF] 99 % 99 % 71 /min 14 /min 111/57 mm[Hg] Kell Garcia [place] [facility] & [place] 4 11:55:12 Date Recorded Body height Provider Name an d Address Organization Details Last Updated DateTime 06/22/2024 160.02 cm Love Lara [place] - [place] [facility] & [place] 06/22/2024 11:00:37 Social History Question Answer Notes LastModified by Organizat ion Details LastModified Time Tobacco Smoking Status Former Smoker Arely Beauchamp [facility], [place] - [place] - [place] & [place] 04/07/2023 14:51:57 Are You Blind Or Do [...] Of Your Most Recent Tobacco Screening? 09/29/2023 [email or web address] Information not available 09/30/2023 Do You Have Smoke And Carbon Monoxide Detectors In Your Home? Yes Information not available 04/07/2023 At What Age Did You Start Smoking Tobacco? 17 Information not available 04/07/2023 Are You Passively Exposed To Smoke? No [email or web address] Information not available 09/30/2023 How Much Tobacco [...] completed Arely Beauchamp null, [place] [facility] & [place] 04/07/2023 14:25:49 COVID-19, mRNA, LNP-S, PF, 100 mcg/0.5mL dose or 50 mcg/0.25mL dose 10/02/2020 completed Arely Nito null[place] [facility] & [place] 04/07/2023 14:25:49 COVID-19, mRNA, LNP-S, PF, 100 mcg/0.5mL dose or 50 mcg/0.25mL dose 10/30/2020 completed Arely Nito [place] [facility] & [place] 04/07/2023 14:25:49 COVID-19, mRNA, LNP-S, PF, 100 mcg/0.5mL dose or 50 mcg/0.25mL dose 05/28/2021 completed Arely [place] 04/07/2023 14:25:49 COVID-19, mRNA, LNP-S, PF, 30 mcg/0.3 mL dose, trini-sucrose 10/10/2021 completed Arely [place] 04/07/2023 14:25:49 COVID-19, mRNA, LNP-S, bivalent, PF, 50 mcg/0.5 mL or 25mcg/0.25 mL dose 03/22/2022 completed Arely [place] 04/07/2023 14:25:49 Tdap 11/13/2021 completed Arely [place] 04/07/2023 14:25:49 Past Encounters Encounter ID Performer Location Encounter Start Date Encounter Closed Date Diagnosis/Indication Diagnosis SNOMED-CT Code Diagnosis ICD10 Code Diagnosis IMO Codes Diagnosis Note [id number] Sawyer Hernández MD [address] [place] [id number] 04/15/2023 08:50:44 04/15/2023 09:44:08 Hypertensive disorder 47210439 I10 Near syncope 486757668 R 55 Tight chest 38853768 R07 .89 Dyspnea on exertion 6084 5006 R06.09 Edema 344147544 R60.9 Essential hypertension 26608790 I10 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 complication 614807172 E11.9 Electrocar diogram abnormal 309382604 R94.31 [id number] Sawyer Hernández MD [address] [place] [id number] 05/14/2023 11:01:30 05/14/2023 11:18:23 Hypertensive disorder 44698723 I10 Dyspnea on exertion 6084 5006 R06.09 Essential hypertension 85588361 I10 Diastolic dysfunction 35 12616 I51.9 Bilateral carotid artery occlusion 426398371 I65.23 Hyperlipidemia 83494178 E78.5 Near syncope 743436387 R 55 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 complication 101826819 E11.9 [id number] Sawyer Hernández MD [address] [place] [id number] 06/19/2023 09:31:28 06/19/2023 09:47:09 Edema 327953000 R60.9 Electrocar diogram abnormal 443416406 R94.31 Essential hypertension 22516241 I10 Hyperlipidemia 16059257 E78.5 Diastolic dysfunction 35 11280 I51.9 Bilateral carotid artery occlusion 803411502 I65.23 [id number] LESTER DE LA CRUZ NP, S [address] [place] [id number] 09/02/2023 13:34:03 09/02/2023 14:20:14 Essential hypertension 08358839 I10 Abnormal foot pulse 6943 7003 R09.89 Peripheral vascular disease 376093429 I73.9 Edema 225820138 R60.9 Electrocar diogram abnormal 137898705 R94.31 Hyperlipidemia 99532535 E78.5 Diastolic dysfunction 35 75576 I51.9 Bilateral carotid artery occlusion 006258229 I65.23 [id number] LESTER DE LA CRUZ NP, S [address] [place] [id number] 09/30/2023 09:22:53 09/30/2023 10:23:43 Essential hypertension 48962327 I10 Edema 277793981 R60.9 Electrocar diogram abnormal 434201125 R94.31 Hyperlipidemia 21604232 E78.5 Diastolic dysfunction 35 49244 I51.9 Bilateral carotid artery occlusion 764100280 I65.23 Peripheral venous insufficiency 27333464 I87.2 [id number] Sawyer Hernández MD [address] [place] [id number] 12/30/2023 08:01:10 12/30/2023 08:54:04 Dyspnea on exertion 43688315 R06.09 Essential hypertension 42525314 I10 Peripheral venous insufficiency 48794991 I87.2 Edema 379953670 R60.9 Electrocar diogram abnormal 532496704 R94.31 Hyperlipidemia 03748615 E78.5 Diastolic dysfunction 35 64811 I51.9 Bilateral carotid artery occlusion 945200598 I65.23 [id number] LESTER DE LA CRUZ NP, S [address] [place] [address] 04/21/2024 12:59:20 04/21/2024 13:54:23 Hypertensive disorder 90422053 I10 Essential hypertension 20592063 I10 Peripheral venous insufficiency 73296086 I87.2 Edema 701870278 R60.9 Hyperlipidemia 23953850 E78.5 Diastolic dysfunction 35 03364 I51.9 Bilateral carotid artery occlusion 316574799 I65.23 [id number] DESIREE GARCIA [facility] [address] [place] [address] [place] [address] 06/22/2024 10:51:52 06/22/2024 12:30:20 Iron deficiency anemia 84967761 D50.9 Patient presents June 22, 2024 for [...] informatio n in the electronic health record. [id number] DESIREE GARCIA [facility] [address] [place] [address] [place] [address] 09/07/2024 12:51:51 09/07/2024 13:53:51 Iron deficiency anemia 13208131 D50.9 Patient presents September 07, 2024 for [...] n in the electronic health record. Fatigue 67469926 R53.83 Patient with continued fatigue. Will assess for vitamin B12 deficiency as well. Health Concerns Section Related Observation LastModified by Organization Detai ls LastModified Time None Recorded Concern Status LastModified by Organization Details LastModified Time None Recorded Advance Directives Directive None Recorded Payers Insurance Date Sequence Insurance Name Policy Number Policy Bledsoe Covered Member ID Bledsoe Member ID Guarantor Name 11/07/2024 1 [employer] (MEDICARE) Amanuel Reynaga [id number] Amanuel Reynaga 12/09/2024 1 [facility] (MEDICARE REPLACEMENT/A DVANTAGE - HMO) [id number] Amanuel Reynaga [id number] Amanuel Reynaga 12/09/2024 2 [place] [facility] [id number] Amanuel Hui Boone [id number] 2 Amanuel Reynaga Notes Date Note Type [...] extremity. LESTER DE LA CRUZ NP, S [address] [place] [address],[address], [place], [address], [place] [facility] & [place] 09/30/2023 12:37:41 12/30/2023 text/html patient has now seeing vascular surgery for her venous problems. She still has shortness of breath. No chest pain pressure or tightness. Still with mild edema in the legs Sawyer Hernández MD [address] [place] [address],[address], [place], [address], [facility] - [facility] & [place] 12/31/2023 14:02:07 04/21/2024 text/html Amanuel is a [...] PCP. LESTER DE LA CRUZ NP, S [address] [place] [address],[address], [place], [address], [place] [facility] [facility] & [place] 04/21/2024 17:39:50 06/22/2024 text/html 74-year-old female referred [...] iron saturation 7%. MARGO MONTAGUE NP [address] [facility],[address], [place], [address], [facility] & [place] 06/23/2024 15:29:20 09/07/2024 text/html 74-year-old female referred [...] in bowel habits. MARGO MONTAGUE NP [address] [facility],[address], [place], [address], [facility] & [place] 10/10/2024 12:41:41 OBGyn Episode No OBEpisode recorded.
--- OUTSIDE RECORDS SUMMARY | 2025-05-17 13:51 | XMS_ITS | Referral Summary ---
Author Organization [employer] ([place], [place], [place], [place], [place]) Address [address] [place] [address] Care Team Providers Care Heat Treat Puller Name Role Phone Chris Valdivia Primary Care Provider [phone] Sawyer Hernández MD Unavailable [phone] David Loredo MD Unavailable Neville Maki MD Unavailable Encounters Date Type Department Care Team Description 05/01/2025 Travel 05/01/2025 1:45 PM EDT Office Visit [facility] Neurology [address] [address] Edwin Hernandez MD BPPV (benign paroxysmal positional vertigo) (Primary Dx); Right arm weakness 02/21/[address] [address] Edwin Hernandez MD from Last 3 Months Allergies Active Allergy Reactions Criticality Noted Date Comments Aminoglycosides High 05/11/2012 Other Reaction(s): Not available, Other - please document in the comment field, Unknown Neomycin High 01/08/2022 Other Reaction(s): Not available, UNKNOWN Penicillin Rash Low 10/15/2023 Penicillins Rash High 01/28/2021 Childhood reaction Sulfa (Sulfonamide Antibiotics) Anaphylaxis High 05/11/2012 Other Reaction(s): Wheezing Other Reaction(s): DIFFICULTY BREATHING Xanthines Rash Medium 05/11/2012 Tolerates amoxicillin Zoster Vaccine Live 05/28/2015 Cannot have due to anaphylaxis with neomycin Medications atorvastatin (LIPITOR) 40 MG tablet SMARTSI Tablet(s) By Mouth Every Evening 10/08/19 24 Active DULoxetine (CYMBALTA) 60 MG capsule Take 1 capsule (60 mg total) by mouth daily. 09/03/19 24 Active furosemide (LASIX) 20 MG tablet Take 1 tablet (20 mg total) by mouth daily. 09/11/19 24 Active losartan (COZAAR) 25 MG tablet Take 1 tablet (25 mg total) by mouth daily. 09/11/19 24 Active magnesium oxide (MAG-OX) 400 mg (241.3 mg magnesium) tablet Take 1 tablet (400 mg total) by mouth daily. 09/10/19 24 Active metFORMIN (GLUCOPHAGE) 500 MG tablet Take 2 tablets (1,000 mg total) by mouth 2 (two) times daily. 09/01/19 24 Active metoprolol succinate (TOPROL-XL) 25 MG 24 hr tablet Take 1 tablet (25 mg total) by mouth daily. 08/07/19 24 Active omeprazole (PriLOSEC) 20 MG capsule Take 1 capsule (20 mg total) by mouth daily. 09/10/19 24 Active tiZANidine (ZANAFLEX) 4 MG tablet Take 1 tablet (4 mg total) by mouth daily as needed. 09/10/19 24 Active zolpidem (AMBIEN) 5 MG tablet Take 1 tablet (5 mg total) by mouth nightly. 08/31/19 24 Active triamcinolone (KENALOG) 0.1 % topical cream [...] TOTAL) BY MOUTH DAILY. 30 tablet 1 12/29/19 25 Active HYDROcodone-acet aminophen (NORCO) 5-325 mg per tablet Take 1 tablet by mouth 2 (two) times daily. Max Daily Amount: 2 tablets 12/06/19 25 Active gabapentin (NEURONTIN) 800 MG tablet 1 tablet (800 mg total). Active ferrous sulfate 325 (65 FE) MG EC tablet 1 tablet (325 mg total). Active ferrous sulfate 325 (65 FE) MG tablet Take 1 tablet every day by oral route for 30 days. 05/30/20 24 Active albuterol 90 mcg/actuation inhaler EVERY 4 HOURS Active amitriptyline (ELAVIL) 100 MG tablet 75 mg. Active amitriptyline (ELAVIL) 75 MG tablet Take 1 tablet (75 mg total) by mouth daily. 10/08/19 24 025 Discontinued Active Problems Problem Noted Date Diagnosed Date [...] Date Matias rded Speak language other than Vincentian at home Not on file 10/12/2023 Want [...] Pulse 88 05/01/2025 1:49 PM EDT Temperature 36.1 C (97 F) 01/06/2024 12:02 PM EDT Respiratory Rate - - Oxygen Saturation 94% 05/01/2025 1:49 PM EDT Inhaled Oxygen Concentration - - Weight 97.8 kg (215 lb 9.6 oz) 05/01/2025 1:49 P M EDT Height 160 cm (5' 3 ) 05/01/2025 1:49 PM EDT Body Mass Index 38.19 05/01/2025 1:49 PM EDT Plan of Treatment Not on file Insurance BLUE CROSS/BLUE SHIELD [facility] MEDICARE ADVANTAGE Care Teams Heat Treat Puller Relationship Specialty Start Date End Date Chris Valdivia [address] [place] [address] PCP - General 10/12/23 Sawyer Hernández MD [address] [place] [address] Him Tech Cardiology 10/12/23 [place] [address] [place] [address] [address] [place] [address] Surgeon Cardiothoracic Surgery 11/19/23 Neville Maki MD [address] [place] [address] [address] [place] [address] Cardiology 12/01/23
--- OUTSIDE RECORDS SUMMARY | 2025-05-17 13:51 | XMS_ITS | Encounter Summary ---
Author Organization [employer] ([place], [place], [place], [place], [place]) Address [address] [place] [address] Care Team Providers Care Credit Collections Specialist Name Role Phone Chris Valdivia Primary Care Provider [phone] Sawyer Hernández MD Unavailable [phone] David Loredo MD Unavailable [phone] Neville Maki MD Unavailable Encounter Details Date Type Department Care Team (Latest Contact Info) Description 05/01/2025 Travel Social History Tobacco Use Types Packs/Day [...] Date Matias rded Speak language other than Citizen Of [place] at home Not on file 10/12/2023 Want [...] on filedocumented in this encounter Care Teams Credit Collections Specialist Relationship Specialty Start Date End Date Chris Valdivia [address] [place] [address] PCP - General 10/12/23 Sawyer Hernández MD [address] [place] [address] Product/Industry Consultant Cardiology 10/12/23 [place] [address] [place] [address] [address] [place] [address] Surgeon Cardiothoracic Surgery 11/19/23 [place] [address] [place] [address] [address] [place] [address] Cardiology 12/01/23 documented as of this encounter
--- OUTSIDE RECORDS SUMMARY | 2025-05-17 13:51 | XMS_ITS | Clinical Summary ---
Author Organization [facility] Address [address] [place] [address] Care Team Providers Care Radiology Nurse Name Role Phone Other, Physician Sashaofnando LIZ [...] topic Insurance MEDICARE on file Care Teams Radiology Nurse Relationship Specialty Start Date End Date Other, Physician MD Monica Other PCP - General Internal Medicine 09/30/23
--- OUTSIDE RECORDS SUMMARY | 2025-05-17 13:51 | XMS_ITS | Clinical Summary ---
Author Organization [employer] ([place], [place], [place], [place], [place]) Address [address] [place] [address] Care Team Providers Care Manager Payment Name Role Phone Chris Valdivia Primary Care Provider [phone] Sawyer Hernández MD Unavailable [phone] David Loredo MD Unavailable [phone] Neville Maki MD Unavailable Allergies Active Allergy [...] tablet (25 mg total) by mouth daily. 03/08/20 24 Active magnesium oxide (MAG-OX) 400 mg (241.3 mg magnesium) tablet Take 1 tablet (400 mg total) by mouth daily. 09/10/19 Active metFORMIN (GLUCOPHAGE) 500 MG tablet Take 2 tablets (1,000 mg total) by mouth 2 (two) times daily. 09/01/19 24 Active metoprolol succinate (TOPROL-XL) 25 MG 24 hr tablet Take 1 tablet (25 mg total) by mouth daily. 08/07/19 Active omeprazole (PriLOSEC) 20 MG capsule Take 1 capsule (20 mg total) by mouth daily. 09/10/19 Active tiZANidine (ZANAFLEX) 4 MG tablet Take 1 tablet (4 mg total) by mouth daily as needed. 09/10/19 Active zolpidem (AMBIEN) 5 MG tablet Take 1 tablet (5 mg total) by mouth nightly. 08/31/19 Active triamcinolone (KENALOG) 0.1 % topical cream [...] (75 mg total) by mouth daily. 10/08/19 025 Discontinued Active Problems Problem Noted Date Diagnosed Date Anxiety 11/19/2023 Arthritis 11/19/2023 Hypertension 11/19/2023 Type 2 diabetes mellitus 10/15/2023 Hyperlipidemia 10/15/2023 Persistent insomnia 10/15/2023 Depressive disorder 10/15/2023 Neuropathy due to type 2 diabetes mellitus 10/14 Diastolic dysfunction 10/15/2023 Bilateral carotid artery occlusion 10/15/2023 Edema 10/15/2023 Peripheral venous insufficiency 10/15/2023 Encounters Date Type Department Care Team Description 05/01/2025 1:45 PM EDT Office Visit [facility] Neurology - [address] [place] [address] Edwin Hernandez MD BPPV (benign paroxysmal positional vertigo) (Primary Dx); Right arm weakness 05/01/2025 Travel 02/21/2025 Telephone [facility] Neurology - [address] [place] [address] Edwin Hernandez MD from Last 3 Months Family History * [...] Date Matias rded Speak language other than Marshallese at home Not on file 10/12/2023 Want [...] 05/01/2025 1:49 PM EDT Plan of Treatment Health Maintenance Due [...] 05/16/2015, Additional history exists Hemoglobin A1C 10/15/2023 Medicare IPPE (Welcome to Medicare) [id number] 07/06/2024 COVID-19 VACCINE (2023-2 5 season) 2025 04/26/2024, 05/08/2023, 03/22/2022, Additional history exists Influenza Vaccine (#1) 2025 4, 04/10/2023, 04/11/2022, Additional history exists Tobacco Cessation Counseling and Screening (12+) 05/01/2026 05/01/2025 Respiratory Syncytial Virus (RSV) Adult or (1 - 1-dose 75+ series) 2027 DTAP/TDAP/TD VACCINES (3 - T d or Tdap) 11/14/2031 11/13/2021, 04/08/2013 Pneumococcal 50+ years Completed 03/28/2021, 2018 Falls Risk Screening Completed 01/26/2025 Insurance BLUE CROSS/BLUE SHIELD [facility] MEDICARE ADVANTAGE Care Teams Manager Payment Relationship Specialty Start Date End Date Chris Valdivia [address] [place] [address] PCP - General 10/12/23 Sawyer Hernández MD [address] [place] [address] [employer] Tender Cardiology 10/12/23 [place] [address] [place] [address] [address] [place] [id number] Surgeon Cardiothoracic Surgery 11/19/23 [place] [address] [place] [address] [address] [place] [id number] Cardiology 12/01/23
--- OUTSIDE RECORDS SUMMARY | 2025-05-17 13:52 | XMS_ITS | Clinical Summary ---
Author Organization Healthcare Address [address] [place] [address] Care Team Providers Care Client Server Developer Name Role Phone Chris Valdivia SHERRILL Primary Care Provider [phone] Allergies Active Allergy Reactions Criticality Noted Date [...] mouth every night. 04/11/2022 Active HYDROcodone-ana taminophen ([place]) 5-325 MG tablet Take 1 tablet by mouth 3 (three) times a day. 75 tablet 05/28/2022 Active Encounters Date Type Department Care Team Description 04/25/2025 Telephone [facility] [address] [place] [address] [facility], Physician, from Last 3 [...] 2002 UKY-Zoster Vaccines (1 of 2) 2002 [id number] Vaccine ( - season) 2025 03/22/2022, 10/10/2021, [...] age to complete this topic [place] [address] [facility] MEDICARE Care Teams Client Server Developer Relationship Specialty Start Date End Date Chris Valdivia, SHERRILL [address] [place] [address] PCP - General 05/27/22
--- OUTSIDE RECORDS SUMMARY | 2025-05-17 13:52 | XMS_ITS | Encounter Summary ---
Author Organization Healthcare Address [address] [place] [address] Care Team Providers Care Fiberglass Quality Technician Name Role Phone Chris Valdivia APRN Primary Care Provider [phone] Encounter Details Date Type Department Care Team (Late st Contact Info) Description 04/25/2025 Telephone [place] [facility] [address] [place] [address] [facility], Physician, [address] [place], [place] [id number] Social History Tobacco Use Types Packs/Day Years [...] documented as of this encounter Care Teams Fiberglass Quality Technician Relationship Specialty Start Date End Date Chris Valdivia APRN [address] [place], [place] [id number] PCP - General 05/27/22 documented as of this encounter
--- NOTE | 2025-05-17 14:30 | MR_ITS ---
FINAL REPORT TECHNIQUE: Multiplanar MR without contrast CLINICAL HISTORY: right knee pain LATERAL SIDED KNEE PAIN , KNEE INSTABILITY X 2 WEEKS FINDINGS: Articular cartilage: Mild diffuse thinning. Marrow signal: Unremarkable Joint fluid: Small joint effusion. Menisci: Normal morphology without tear Ligaments: Collateral, cruciate and patellofemoral ligaments intact Tendons: Quadriceps and patellar tendon normal IMPRESSION: Mild degenerative changes without meniscal or ligamentous injury. Reviewed, Interpreted and Dictated by Golden Wood MD Transcribed by Clara Brown Authenticated and [facility]
== END 2025-05-17 23:59 | disposition home or self-care (01) ==
PROVIDERS: PCP Nurse Practitioner Family; Visit Provider Physician Assistant
DX: M17.11 Unilateral primary osteoarthritis, right knee (principal); M23.91 Unspecified internal derangement of right knee
CPT/HCPCS: 73721